=== PATIENT | male | born 1940 | race Caucasian/White ===

== ENCOUNTER → 2016-10-19 | Outpatient (CLI) | payer MEDICARE, OTHER ==
[~2016-10-19] VITALS: Ht 180.3 cm; Wt 108.9 kg
[~2016-10-19] MED LIST: ALLO300T OR; ASPI81TA85 PO; BISO5TAB5 PO; FINA5TAB2 PO; FISH1000 OR; LOSA100T37 PO; MAGN250T OR; NS 1,000 ML IV ONE; OMEP20TA7 OR; POTASSIUM OR; PRAV10TA PO; PROPOFOL 200 MG/20 ML VIAL As Ordered ONE; ROPI0.5T PO; TRIC145T19 OR; [UNRECOGNIZED DRUG - OTHER] PO
--- NOTE | 2016-10-19 15:02 | ROOR ---
Patient Name: Ian Alcantara Procedure Date: 10/19/2016 2:17 PM Date of : 1940 Age: 76 Room: [facility] Gender: Male Note Status: Finalized Procedure: Colonoscopy to Cecum + Cold Snare Polypectomy + Hemoclips x 10 Indications: High risk colon cancer surveillance: Personal history of colonic polyps, Last colonoscopy: 2005 Providers: Roger Araujo MD Referring MD: BARBER BRUMFIELD MD Requesting Provider: Medicines: Monitored Anesthesia Care Complications: No immediate complications. Procedure: Pre-Anesthesia Assessment: - The heart rate, respiratory rate, oxygen saturations, blood pressure, adequacy of pulmonary ventilation, and response to care were monitored throughout the procedure. The Colonoscope was introduced through the anus and advanced to the cecum, identified by appendiceal orifice and ileocecal valve. The colonoscopy was performed without difficulty. The patient tolerated the procedure well. The quality of the bowel preparation was excellent. Findings: The perianal and digital rectal examinations were normal. Non-bleeding internal hemorrhoids were found during retroflexion. The hemorrhoids were small and Grade I (internal hemorrhoids that do not prolapse). Scattered small-mouthed diverticula were found in the recto-sigmoid colon, sigmoid colon and descending colon. Multiple sessile polyps were found in the entire colon. The polyps were medium in size. These polyps were removed with a cold snare. Resection and retrieval were complete. To prevent bleeding after the polypectomy, four hemostatic clips were successfully placed (MR conditional). There was no bleeding at the end of the procedure. A large polyp was found in the mid ascending colon. The polyp was sessile. The polyp was removed with a cold snare. Resection and retrieval were complete. To prevent bleeding after the polypectomy, six hemostatic clips were successfully placed (MR conditional). There was no bleeding at the end of the procedure. The exam was otherwise without abnormality on direct and retroflexion views. Impression: - Non-bleeding internal hemorrhoids. - Diverticulosis in the recto-sigmoid colon, in the sigmoid colon and in the descending colon. - Multiple medium polyps in the entire colon, removed with a cold snare. Resected and retrieved. Clips (MR conditional) were placed. - One large polyp in the mid ascending colon, removed with a cold snare. Resected and retrieved. Clips (MR conditional) were placed. - The examination was otherwise normal on direct and retroflexion views. - The exam was otherwise normal to the cecum. Recommendation: - Patient has a contact number available for emergencies. The signs and symptoms of potential delayed complications were discussed with the patient. Return to normal activities tomorrow. Written discharge instructions were provided to the patient. - High fiber diet. - Discharge patient to home. - Continue present medications. - Await pathology results. - Telephone GI clinic for pathology results in 1 week. - Repeat colonoscopy in 1 year for surveillance based on pathology results. - Return to referring physician. - The findings and recommendations were discussed with the patient's family. Roger Araujo MD Roger Araujo MD 10/19/2016 3:02:25 PM This report has been signed electronically. Number of Addenda: 0 Note Initiated On: 10/19/2016 2:17 PM Estimated Blood Loss: Estimated blood loss: none.
[2016-10-19 15:51] VITALS: BP 139/71
== END | disposition home or self-care (01) ==
LOC: M OPP 12:41
PROVIDERS: ATTEND Internal Medicine Gastroenterology
DX: Z12.11 Encounter for screening for malignant neoplasm of colon (principal); D12.2 Benign neoplasm of ascending colon; K63.5 Polyp of colon; K64.0 First degree hemorrhoids; K57.30 Diverticulosis of large intestine without perforation or abscess without bleeding; Z86.010 Personal history of colon polyps; I10 Essential (primary) hypertension; E78.5 Hyperlipidemia, unspecified; M19.90 Unspecified osteoarthritis, unspecified site; M54.2 Cervicalgia; Z95.5 Presence of coronary angioplasty implant and graft; I25.2 Old myocardial infarction; Z87.442 Personal history of urinary calculi; Z79.82 Long term (current) use of aspirin; Z79.899 Other long term (current) drug therapy; Z80.3 Family history of malignant neoplasm of breast

== ENCOUNTER 2017-05-16 11:13 | Day surgery (SDC) | payer MEDICARE, OTHER ==
[~2017-05-16] VITALS: Ht 180.3 cm; Wt 110.0 kg
[~2017-05-16 11:13] MED LIST changes: -LOSA100T37 PO; +LOSA100T5 PO; -NS 1,000 ML IV ONE; -PRAV10TA PO; +PRAV10TA4 PO; -PROPOFOL 200 MG/20 ML VIAL As Ordered ONE
[2017-05-16] MEDS ORDERED: CRES10TA32 PO (12:11)
[2017-05-16] MEDS ORDERED: LIDOCAINE 1% SDV INJ 30 ML VIAL As Ordered ONE (12:48)
[2017-05-16] MEDS ORDERED: PROPOFOL 200 MG/20 ML VIAL As Ordered ONE ×2 (13:47→14:12)
[2017-05-16] MEDS ORDERED: MIDAZOLAM INJ 2 MG/2 ML VIAL (J2250) As Ordered ONE (13:47)
[2017-05-16] MEDS ORDERED: fentaNYL 100 MCG/2 ML INJECTION (J3010) As Ordered ONE (13:47)
[2017-05-16] MEDS ORDERED: PHENYLephrine HCL 500 MCG/5 ML (100MCG/ML) SYRINGE (J2370) As Ordered ONE (13:51)
--- NOTE | 2017-05-16 15:34 | REP ---
Chest one-view HISTORY: Pacemaker insertion Comparison: 09/15/2014 The lungs are clear. The heart is normal in size. The pulmonary vasculature is normal in appearance. The patient is status post pacemaker insertion surgical tito are present overlying the upper left hemithorax. Impression: The patient is status post pacemaker insertion. Signed by Shailesh Edwards MD 05/16/2017 03:25 P
[2017-05-16] MEDS ORDERED: fentaNYL 100 MCG/2 ML INJECTION (J3010) IV PRN (15:45)
[2017-05-16] MEDS ORDERED: ACETAMINOPHEN TAB 650MG DOSE (2X325MG) PO PRN (15:45)
[2017-05-16] MEDS ORDERED: LR 1,000 ML IV SCH (15:45)
[2017-05-16] MEDS ORDERED: ONDANSETRON 4MG/2ML VIAL (J2405) IV PRN (15:45)
[2017-05-16] MEDS: traMADol 50 MG TAB PO PRN (16:18)
--- NOTE | 2017-05-16 16:21 | RO ---
DATE OF PROCEDURE: 05/16/2017 PREOPERATIVE DIAGNOSES: 1. Intermittent high-grade AV block with syncope. 2. 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 3. Coronary artery disease ([place] vessel)/post percutaneous transluminal coronary angioplasty (PTCA). 4. Hypertensive heart disease (benign without heart failure). POSTOPERATIVE DIAGNOSES: 1. Intermittent high-grade AV block with syncope. 2. 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 3. Coronary artery disease ([place] vessel)/post percutaneous transluminal coronary angioplasty (PTCA). 4. Hypertensive heart disease (benign without heart failure). PROCEDURE: Implantation of permanent dual-chamber pacemaker. IMPLANTING COMPOTYPE OPERATOR: Dr. Gualberto Zacarias ANESTHESIOLOGIST: Dr. Randy Rey TYPE OF ANESTHESIA: Monitored local anesthesia. CLINICAL SUMMARY: This 77-year-old father of three grown children, retired resident of [place], [place] is followed by Dr. Cohen for ischemic and hypertensive heart disease. Has had a prior history of bradycardia and abnormal EKG. While hunting last week suffered a syncopal spell with subsequent documented EKG pauses exceeding 4 seconds. Had been on bisoprolol at that time which was discontinued. Had a followup Holter monitor that showed ongoing episodes of AV block with pauses of over 3 seconds. In light of this, he was referred to our pacer service for permanent pacemaker implant. Customarily feels fairly unrestricted. Denies any recent chest pain or shortness of breath or palpitations. Overweight, barrel-chested, elderly male lay comfortably. Heart rate (HR) 83 beats per minute and irregular, blood pressure 138/80, respiratory rate 16 per minute, body mass index (BMI) 34. Oxygen saturation on room air 99%. No pallor or cyanosis. Normal oral moisture. Trachea midline. Neck veins did not appear to be elevated. Increased anteroposterior chest diameter with good air entry over both lung villareal with no pulmonary adventitious sounds. Apical impulse not palpable. Heart sounds somewhat distant but variable with very soft systolic murmur that was also variable related to his arrhythmia. Normal carotid upstroke with variable volume related to his arrhythmia. Soft, overweight abdomen. Pedal pulses were palpable. No dependent edema. EKG May 15, 2017 showed underlying sinus rhythm with PAC. Left atrial conduction disturbance with first-degree AV block. Extreme left axis with left bundle branch block. Blood work April 25, 2017 showed electrolyte balance with creatinine 1.2, random glucose 118, hemoglobin was 15.6. DESCRIPTION OF PROCEDURE: In the fasting state following informed consent and having received Ancef 2 grams IV premedication, the patient was taken to the operating theater. Numerous skin electrodes were applied to facilitate continuous electrocardiographic monitoring. The left subclavian region was prepped and draped in the usual fashion. The skin was infiltrated with 1% Xylocaine, and the left axillary vein was catheterized using the Seldinger technique. A 5-cm linear incision was made several centimeters below and parallel to the left clavicle. Dissection was carried down to the level of the pectoralis fascia and a pocket was fashioned below the level of the incision line. Two bipolar screw-in active fixation steroid eluting pacing leads were then positioned to the right ventricular apex and high right atrial appendage under fluoroscopic and electrocardiographic control. The ventricular lead ([employer], model number [id number], serial number [id number] - MRI compatible) measurements were: Stimulation threshold 0.5, V/0.4 ms/impedance 1008 ohms. The R wave amplitude measured 20.6 mV. The atrial lead ([employer], model number [id number], serial number [id number] - MRI compatible) measurements were: Stimulation threshold 0.5 V/0.4 ms/impedance 522 ohms. The P wave amplitude measured 2.5 mV. These leads were secured in position with sleeves sutured at their insertion site. They were then connected to a dual-chamber pulse generator ([employer] - Assurity MRI compatible, model number [id number], serial number [id number]) and appropriate DDD pacing was documented. The generator was then placed in the pocket and secured in position with a suture through the upper right-hand corner of the epoxy header. The subcutaneous tissues were approximated using a running chromic suture and the skin was closed using tito. A dry dressing was applied and the patient was returned to the recovery room in good condition. No apparent complications. Estimated blood loss 10 mL. Our plan is to monitor him on telemetry overnight. His postoperative upright chest x-ray showed appropriate and good lead position with no pneumothorax. His EKG showed sinus rhythm with appropriate atrial sensing and tracking with ventricular paced QRS complexes having an extreme leftward axis and left bundle branch block pattern. We intend to re-interrogate his device tomorrow morning and anticipate his discharge prior to noon. His diet will continue with no added salt and low fat, low cholesterol. We have requested that he perform only light activities of daily living with his left arm until he has his tito removed in my office on May 25, 2017 at 12:30 p.m. We have also requested that he avoid getting his incision wet. He has been encouraged to contact us promptly for any abnormal erythema, swelling or discharge. His medications will resume bisoprolol 2.5 mg by mouth twice a day, losartan/HCTZ 100-25 one tablet daily, aspirin 81 mg daily, Crestor 10 mg nightly, potassium citrate 10 mEq daily, fenofibrate 134 mg daily, allopurinol 300 mg daily, Flomax 0.4 mg daily, and Proscar 5 mg by mouth daily with ropinirole 0.5 mg by mouth nightly. Following his wound check and staple removal May 25, 2017, he will continue his customary cardiology followup with Dr. Cohen. Copy To: Dr. Shiv Moseley
[2017-05-16 16:40] VITALS: BP 154/80
[2017-05-16 17:10] VITALS: BP 165/79
[2017-05-16 18:10] VITALS: BP 153/71
[2017-05-16 19:04] VITALS: BP 130/59
[2017-05-16] MEDS: ACETAMINOPHEN TAB 650MG DOSE (2X325MG) PO PRN (20:46)
[2017-05-16] MEDS: BISOPROLOL FUM 2.5 MG PER 1/2TAB PO SCH (20:47)
[2017-05-16] MEDS ORDERED: ROSUVASTATIN 10 MG TAB (CRESTOR) PO SCH (21:00)
[2017-05-16] MEDS ORDERED: rOPINIRole 0.25 MG TAB(REQUIP) PO SCH (21:00)
[2017-05-16] MEDS: CEFAZOLIN SOD 1 GM in APPROPRIATE DILUENT 1 EA IV SCH (21:34)
[2017-05-17] VITALS: BP 129/59
[2017-05-17 04:00] VITALS: BP 127/60
[2017-05-17] MEDS: traMADol 50 MG TAB PO PRN (05:27)
[2017-05-17] MEDS: CEFAZOLIN SOD 1 GM in APPROPRIATE DILUENT 1 EA IV SCH ×2 (06:14→13:50)
[2017-05-17 08:00] VITALS: BP 145/71
[2017-05-17] MEDS: ACETAMINOPHEN TAB 650MG DOSE (2X325MG) PO PRN (08:31)
[2017-05-17 08:33] VITALS: BP 145/71
[2017-05-17] MEDS: BISOPROLOL FUM 2.5 MG PER 1/2TAB PO SCH (08:33)
--- NOTE | 2017-05-17 08:50 | REP ---
Chest two views HISTORY: Pacemaker insertion Comparison: 05/16/2017 Linear density is present in the left lower lobe consistent with atelectasis. The right lung is clear. The heart is normal in size. The pulmonary vasculature is normal in appearance. Degenerative change is present in the thoracic spine. A cardiac pacemaker is present. IMPRESSION: Left lower lobe atelectasis. Signed by Shailesh Edwards MD 05/17/2017 08:42 A
[2017-05-17] MEDS ORDERED: POTASSIUM CHLORIDE 10 MEQ SR TABLET PO SCH (09:00)
[2017-05-17] MEDS ORDERED: ASPIRIN 81 MG CHEW TABLET PO SCH (09:00)
[2017-05-17] MEDS ORDERED: FINASTERIDE 5 MG TAB PO SCH (09:00)
[2017-05-17] MEDS ORDERED: ALLOPURINOL 300 MG TAB PO SCH (09:00)
[2017-05-17] MEDS ORDERED: hydroCHLOROthiazide 25 MG TAB PO SCH (09:00)
[2017-05-17] MEDS ORDERED: TAMSULOSIN 0.4 MG CAP PO SCH (09:00)
[2017-05-17] MEDS ORDERED: FENOFIBRATE 145 MG TAB (TRICOR) PO SCH (09:00)
[2017-05-17] MEDS ORDERED: LOSARTAN 50 MG TAB PO SCH (09:00)
--- NOTE | 2017-05-17 09:24 | ECGEPIP ---
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 First-degree AV block. Single pseudofusion beat with ventricular pacing artifact. Marked left axis - left anterior hemiblock. Rule out prior septal/IWMI. Incomplete LBBB. ST elevation in V2, resolved from 09/15/14. Electronically Signed On 05-17-2017 9:23:54 EST by Gualberto Zacarias
--- NOTE | 2017-05-17 09:31 | ECGEPIP ---
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 First-degree AV block. Extreme left axis - left anterior hemiblock; rule out prior septal/inferior SD. No significant change from 05/16/17. Electronically Signed On 05-17-2017 9:31:43 EST by Gualberto Zacarais
[2017-05-17 12:00] VITALS: BP 121/59
[2017-05-17] MEDS ORDERED: BISO5TAB5 PO (15:54)
[2017-05-17 16:00] VITALS: BP 131/60
--- NOTE | 2017-05-17 16:34 | IPN ---
DATE: 05/17/2017 CARDIOLOGY PROGRESS NOTE: SUBJECTIVE: The patient has had some minor incisional discomfort from his pacemaker implant yesterday but has been free of other chest discomfort, shortness of breath or dizziness. Has been up walking without problems. OBJECTIVE: Pleasant overweight slightly barrel-chested elderly male laying comfortably. Heart rate 60 beats per minute and regular, blood pressure 121/59 sitting with legs dependent, respiratory rate 16 per minute, O2 saturation 94% on room air. Afebrile. No pallor or icterus. Normal oral moisture. Trachea midline. Neck veins were not elevated. Increased anteroposterior chest diameter with normal chest expansion. His incision left subclavian region was healing well. His dressing was changed. Has plus/minus distal lower leg pitting. CHEST X-RAY: PA and left lateral study taken earlier today again shows his borderline cardiomegaly with slightly unfolded thoracic aorta but normal pulmonary vasculature. His pacemaker pulse generator is the left subclavian region and pacing leads are terminating in the high right atrial appendage and RV apex. Position was stable. No pneumothorax. No pleural effusion. 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 Intermittent atrially paced rhythm with frequent isolated PAC, occasional PVCs with his preferential spontaneous AV conduction mode activated. For the most part he has spontaneous QRS complexes but on occasion there are appropriately paced QRS complexes as well. No PSVT. EKG EARLIER TODAY: Shows underlying sinus rhythm with mostly spontaneous, AV conducted impulses with a first-degree AV block. Spontaneous complexes have an extreme leftward axis consistent with left anterior hemiblock. Has a poor precordial R-wave progression. Could not rule out prior septal or inferior infarctions. There are two appropriate paced QRS complexes. IMPRESSION/PLAN: 1. Syncope: The patient has remained free of further dizziness or faintness ambulating in the raines without problems. 2. AV block (unspecified) / dual-chamber pacemaker in situ: As mentioned above. Complete pacemaker interrogation shows excellent intracardiac electrograms and pacing thresholds with estimated battery longevity of 10-1/2 years. His ventricular auto capture function works well. His atrial auto capture function is not working at this time despite an excellent intracardiac signal with P-waves measuring 2.6 mV and pacing threshold of 0.5, V / 0.4 ms. His device is programmed to DDD with low rate 60 and upper rate 110. Spontaneous AV intervals of 200 ms with additional ventricular preferential program set with an extra 100 milliseconds. 3. Coronary artery disease ([place] vessel) / post [place] / post stenting procedure: Has remained free of symptomatic myocardial ischemia with his activity in hospital. We have resumed his bisoprolol beta darrell therapy now with his pacemaker is in place also continues on protective losartan and Crestor and aspirin. 4. Hypertensive heart disease (benign without heart failure): No symptoms or signs of congestion and his current blood pressure would be considered well-controlled on his combination therapy. This point the patient will be discharged home. He has been encouraged to follow a no added salt, low-fat, low-cholesterol diet. His activity will be as tolerated with the exception of light activity of daily living with his left arm and avoiding getting his incision wet until his tito removed in my office May 25, 2017 at 12:30 p.m. MEDICATON: Will continue bisoprolol 2.5 mg twice a day, losartan and / HCTZ 100 - 25 mg daily, Crestor 10 mg at night, Flomax 0.4 mg daily, Proscar 5 mg daily, aspirin 81 mg daily, allopurinol 300 mg daily, fenofibrate to 134 mg by mouth daily and potassium citrate 10 mEq 1 tablet three times a day 81 tablets three times a day. He will also be on Ropinirole 0.5 mg at bedtime. We have encouraged him to contact us promptly should he notice any abnormal erythema, swelling or discharge. Thank you.
== END 2017-05-17 16:53 | disposition home or self-care (01) ==
LOC: M SDC 11:13 → M PCU 16:34 → M SDC 05-17 16:53
PROVIDERS: ATTEND Internal Medicine Cardiovascular Disease
DX: I44.7 Left bundle-branch block, unspecified (principal); I44.1 Atrioventricular block, second degree; R55 Syncope and collapse; I25.10 Atherosclerotic heart disease of native coronary artery without angina pectoris; Z98.61 Coronary angioplasty status; E66.3 Overweight; Z79.899 Other long term (current) drug therapy
CPT/HCPCS: 33208; 71010; 71020; 76000; 93005; 96376; C1785; C1898; J0690; J2250; J2370; J3010

== ENCOUNTER → 2017-07-08 | Outpatient (CLI) | payer MEDICARE, OTHER ==
[2017-07-08 16:41] LABS: BASO # 0.1 10^3/uL (0.0-0.2); BASO % 0.7 % (0.0-1.0); EOS # 0.2 10^3/uL (0.0-0.50); EOS % 2.9 % (0.0-3.0); HEMATOCRIT 49.1 % (42.0-52.0); HEMOGLOBIN 16.3 g/dl (14.0-18.0); IMMATURE GRANULOCYTE % 0.3 % (0-0); LYMPH # 1.9 10^3/uL (1.5-4.5); LYMPH % 25.9 % (24.0-44.0); MEAN CORPUSCULAR HGB CONC 33.2 g/dl (32.0-36.5); MEAN CORPUSCULAR VOLUME 93.3 fl (80.0-96.0); MONO # 0.9 10^3/uL (0.0-0.8); MONO % 11.9 % (0.0-5.0); NEUTROPHILS # 4.2 10^3/uL (1.8-7.7); NEUTROPHILS % 58.3 % (36.0-66.0); PLATELET COUNT, AUTOMATED 185 10^3/uL (150-450); RED BLOOD COUNT 5.26 10^6/uL (4.30-6.10); RED CELL DISTRIBUTION WIDTH 13.2 % (11.5-14.5); WHITE BLOOD COUNT 7.2 10^3/uL (4.0-10.0)
[2017-07-09 11:15] LABS: CONTROL LINE MONO RF C INT CTR LINE PRESENT; MONO REFLEX EBV COMP NEGATIVE (NEGATIVE)
[2017-07-12 00:06] LABS: EBV VIRAL CAPSID AG IgM <36.0 U/mL (0.0-35.9)
[2017-07-12 00:06] LABS: EBV AB TO NUCLEAR ANTIGEN >600.0 U/mL (0.0-17.9); EBV VIRAL CAPSID AG IgG >600.0 U/mL (0.0-17.9)
== END ==
LOC: M ADAMS 10:39
DX: J20.9 Acute bronchitis, unspecified (principal); Z95.0 Presence of cardiac pacemaker
CPT/HCPCS: 86665

== ENCOUNTER → 2017-08-03 | Outpatient (CLI) | payer MEDICARE, OTHER | LOC: M SMT 11:04 | DX: N20.0 Calculus of kidney (principal) | CPT/HCPCS: 74018; G0463 ==

== ENCOUNTER → 2017-08-09 | Outpatient (REF) | payer MEDICARE, OTHER ==
[2017-08-09 14:32] LABS: APPEARANCE, URINE CLEAR (CLEAR); BACTERIA, URINE AUTO NEGATIVE (NEGATIVE); BILIRUBIN, URINE AUTO NEGATIVE (NEGATIVE); BLOOD, URINE BLOOD NEGATIVE (NEGATIVE); COLOR, URINE YELLOW (YELLOW); GLUCOSE, URINE (UA) AUTO NEGATIVE (NEGATIVE); KETONE, URINE AUTO NEGATIVE (NEGATIVE); LEUKOCYTE ESTERASE, URINE AUTO NEGATIVE (NEGATIVE); MUCUS, URINE SMALL (NEGATIVE); NITRITE, URINE AUTO NEGATIVE (NEGATIVE); PROTEIN, URINE AUTO NEGATIVE (NEGATIVE); RBC, URINE AUTO 1 /HPF (0-3); SPECIFIC GRAVITY URINE AUTO 1.018 (1.002-1.035); SQUAMOUS EPITHELIAL CELL UR AU 0 /HPF (0-6); UROBILINOGEN, URINE AUTO 0.2 mg/dL (0.0-2.0); WBC, URINE AUTO 1 /HPF (0-3)
== END ==
LOC: M SMT 13:29
DX: N39.0 Urinary tract infection, site not specified (principal)
CPT/HCPCS: 81001

== ENCOUNTER → 2017-11-13 | Outpatient (CLI) | payer MEDICARE, OTHER | LOC: M ADAMS 13:33 | DX: M51.36 Other intervertebral disc degeneration, lumbar region (principal) | CPT/HCPCS: 72110 ==

== ENCOUNTER → 2017-11-14 | Outpatient (CLI) | payer MEDICARE, OTHER | LOC: M ADAMS 15:27 | DX: S93.402D Sprain of unspecified ligament of left ankle, subsequent encounter (principal); R60.0 Localized edema | CPT/HCPCS: 73610 ==

== ENCOUNTER → 2018-02-01 | Outpatient (CLI) | payer MEDICARE, OTHER | LOC: M SMT 10:04 | DX: N20.0 Calculus of kidney (principal) | CPT/HCPCS: 74018; G0463 ==

== ENCOUNTER 2018-02-25 13:28 | Emergency (ER) | payer MEDICARE, OTHER ==
[2018-02-25 14:00] LABS: HEMATOCRIT 45.5 % (42.0-52.0); HEMOGLOBIN 15.5 g/dl (13.5-17.5); MEAN CORPUSCULAR VOLUME 95.8 fl (80.0-96.0); RED BLOOD COUNT 4.75 10^6/uL (4.30-6.10); WHITE BLOOD COUNT 9.5 10^3/uL (4.0-10.0)
[2018-02-25 14:01] LABS: BASO % 0.4 % (0.0-1.0); EOS # 0.1 10^3/uL (0.0-0.50); EOS % 1.5 % (0.0-3.0); IMMATURE GRANULOCYTE % 0.3 % (0-3.0); LYMPH # 2.4 10^3/uL (1.5-4.5); LYMPH % 25.4 % (24.0-44.0); MEAN CORPUSCULAR HEMOGLOBIN 32.6 pg (27.0-33.0); MEAN CORPUSCULAR HGB CONC 34.1 g/dl (32.0-36.5); MONO # 1.2 10^3/uL (0.0-0.8); MONO % 12.8 % (0.0-5.0); NEUTROPHILS # 5.6 10^3/uL (1.8-7.7); NEUTROPHILS % 59.6 % (36.0-66.0); PLATELET COUNT, AUTOMATED 151 10^3/uL (150-450); RED CELL DISTRIBUTION WIDTH 13.5 % (11.5-14.5)
[2018-02-25] MEDS: GI COCKTAIL 50ML BTL(HYOSCYAMINE/MAALOX/LIDOCAINE VISCOUS)(1:3:1) PO (14:01)
[2018-02-25 14:15] LABS: INR 0.93; PROTHROMBIN TIME 12.6 SECONDS (12.1-14.4)
[2018-02-25 14:16] LABS: PARTIAL THROMBOPLASTIN TIME 29.4 SECONDS (25.4-37.6)
[2018-02-25 14:27] LABS: ALBUMIN 3.7 GM/DL (3.2-5.2); ALBUMIN/GLOBULIN RATIO 0.93 (1.00-1.93); ALKALINE PHOSPHATASE 48 U/L (45-117); ALT/SGPT 22 U/L (12-78); ANION GAP 6 MEQ/L (8-16); AST/SGOT 22 U/L (7-37); BILIRUBIN,DIRECT 0.2 MG/DL (0.0-0.2); BILIRUBIN,TOTAL 1.2 MG/DL (0.2-1.0); BLOOD UREA NITROGEN 26 MG/DL (7-18); CALCIUM LEVEL 9.5 MG/DL (8.8-10.2); CARBON DIOXIDE LEVEL 29 MEQ/L (21-32); CHLORIDE LEVEL 100 MEQ/L (98-107); CPK CREATINE PHOSPHOKINASE 207 U/L (39-308); FREE T4 0.77 NG/DL (0.76-1.46); GLOMERULAR FILTRATION RATE 56.7 (>42); GLUCOSE, FASTING 147 MG/DL (70-100); LIPASE 137 U/L (73-393); MB/CK RELATIVE INDEX 1.01 (< OR =4); NT-PRO BNP 571 PG/ML (<450); SODIUM LEVEL 135 MEQ/L (136-145); TOTAL PROTEIN 7.7 GM/DL (6.4-8.2); TROPONIN I < 0.02 NG/ML (< 0.10)
[2018-02-25] MEDS: KETOROLAC 30 MG/ML VIAL (J1885) IV (15:15)
[2018-02-25] MEDS: FUROSEMIDE 20 MG/2 ML VIAL (J1940) IV (15:16)
== END 2018-02-25 15:55 | disposition home or self-care (01) ==
LOC: M ED 13:28
DX: I50.9 Heart failure, unspecified (principal); M79.1 Myalgia; Z95.0 Presence of cardiac pacemaker; R94.31 Abnormal electrocardiogram [ECG] [EKG]; I51.9 Heart disease, unspecified; I10 Essential (primary) hypertension; Z95.5 Presence of coronary angioplasty implant and graft; Z95.1 Presence of aortocoronary bypass graft; I71.2 Thoracic aortic aneurysm, without rupture; Z79.82 Long term (current) use of aspirin; Z79.899 Other long term (current) drug therapy
CPT/HCPCS: J1940

== ENCOUNTER → 2019-02-08 | Outpatient (CLI) | payer MEDICARE, OTHER ==
[~2019-02-08] MED LIST changes: -BISO5TAB5 PO; +BISO5TAB9 PO; +CRES10TA PO; +FENO130C PO; +FLOM0.4C39 PO; +IBUP-1022 PO
--- NOTE | 2019-02-08 09:38 | REP ---
Right abdomen two views: Comparison is a 2017. There are no comparison CTs. There are four calcifications projected over the right kidney, similar to the prior study. No left renal calculi are identified. This is unchanged. The bowel gas pattern is normal. There are large bridging osteophytes at multiple levels of the lumbar spine, unchanged. Impression: Right renal calculi as described, unchanged. Electronically Signed by Gerber Reagan MD 02/08/2019 09:30 A
[2019-02-08 13:25] LABS: APPEARANCE, URINE CLEAR (CLEAR); BACTERIA, URINE AUTO NEGATIVE (NEGATIVE); BILIRUBIN, URINE AUTO NEGATIVE (NEGATIVE); BLOOD, URINE BLOOD NEGATIVE (NEGATIVE); COLOR, URINE YELLOW (YELLOW); GLUCOSE, URINE (UA) AUTO NEGATIVE (NEGATIVE); KETONE, URINE AUTO NEGATIVE (NEGATIVE); LEUKOCYTE ESTERASE, URINE AUTO NEGATIVE (NEGATIVE); MUCUS, URINE SMALL (NEGATIVE); NITRITE, URINE AUTO NEGATIVE (NEGATIVE); PROTEIN, URINE AUTO NEGATIVE (NEGATIVE); RBC, URINE AUTO 0 /HPF (0-3); SQUAMOUS EPITHELIAL CELL UR AU 0 /HPF (0-6); UROBILINOGEN, URINE AUTO 0.2 mg/dL (0.0-2.0); WBC, URINE AUTO 0 /HPF (0-3)
== END ==
LOC: M SMT 08:47
PROVIDERS: ATTEND Urology
DX: N39.0 Urinary tract infection, site not specified (principal); N20.0 Calculus of kidney; M25.78 Osteophyte, vertebrae
CPT/HCPCS: 74018; 81001; 87086; G0463

== ENCOUNTER → 2019-12-30 | Outpatient (REF) | payer MEDICARE, OTHER ==
[~2019-12-30] MED LIST changes: -ASPI81TA85 PO; +ASPI81TA86 PO; +BISO5TAB14 PO; -BISO5TAB9 PO; -FENO130C PO; +FENO1CAP18 PO; -ROPI0.5T PO; +ROPI0.5T3 PO
[2019-12-30 13:51] LABS: APPEARANCE, URINE CLEAR (CLEAR); BACTERIA, URINE AUTO NEGATIVE (NEGATIVE); BILIRUBIN, URINE AUTO NEGATIVE (NEGATIVE); BLOOD, URINE BLOOD 1+ (NEGATIVE); COLOR, URINE YELLOW (YELLOW); GLUCOSE, URINE (UA) AUTO 1+ mg/dL (NEGATIVE); KETONE, URINE AUTO NEGATIVE (NEGATIVE); LEUKOCYTE ESTERASE, URINE AUTO NEGATIVE (NEGATIVE); NITRITE, URINE AUTO NEGATIVE (NEGATIVE); PROTEIN, URINE AUTO NEGATIVE (NEGATIVE); RBC, URINE AUTO 2 /HPF (0-3); SPECIFIC GRAVITY URINE AUTO 1.019 (1.002-1.035); SQUAMOUS EPITHELIAL CELL UR AU 1 /HPF (0-6); UROBILINOGEN, URINE AUTO 0.2 mg/dL (0.0-2.0); WBC, URINE AUTO 0 /HPF (0-3)
== END ==
LOC: M LABSMT 10:23 → M SFHCADAM 10:23
PROVIDERS: ATTEND Nurse Practitioner Women's Health
DX: R30.0 Dysuria (principal)

== ENCOUNTER → 2020-01-22 | Outpatient (REF) | payer MEDICARE, OTHER ==
[2020-03-08 06:38] LABS: BLOOD UREA NITROGEN 28 MG/DL (7-18); CALCIUM LEVEL 9.4 MG/DL (8.8-10.2); CARBON DIOXIDE LEVEL 34 MEQ/L (21-32); CHLORIDE LEVEL 102 MEQ/L (98-107); CREATININE FOR GFR 1.21 MG/DL (0.70-1.30); GLOMERULAR FILTRATION RATE > 60.0 (>35); GLUCOSE, FASTING 130 MG/DL (70-100); POTASSIUM SERUM 3.8 MEQ/L (3.5-5.1); SODIUM LEVEL 141 MEQ/L (136-145)
== END ==
LOC: M LABDRWAD 10:05
PROVIDERS: ATTEND Urology
DX: R31.0 Gross hematuria (principal)

== ENCOUNTER → 2020-05-04 | Outpatient (REF) | payer MEDICARE, OTHER ==
[2020-05-05 18:07] LABS: Lyme Disease IgG/IgM Antibodie <0.91 ISR (0.00-0.90); Lyme Disease IgM Ab Quantitati <0.80 index (0.00-0.79)
== END ==
LOC: M LABDRWAD 12:13 → M LAB REF 12:13
PROVIDERS: ATTEND Internal Medicine
DX: A69.20 Lyme disease, unspecified (principal)

== ENCOUNTER → 2021-04-12 | Outpatient (CLI) | payer MEDICARE, OTHER ==
--- NOTE | 2021-04-12 12:12 | REP ---
INDICATION: RIGHT SHOULDER INJURY. COMPARISON: None. TECHNIQUE: Three views of the right shoulder were performed. 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 There is evidence of a Hill-Sachs deformity. The glenohumeral relationship is within normal limits. There is no evidence of an acute fracture, dislocation, or subluxation. IMPRESSION: Chronic changes as described above. <Electronically signed by Reginaldo Llanos > 04/12/21 [id number]
== END ==
LOC: M RAD 11:49
PROVIDERS: ATTEND Physician Assistant Medical
DX: M25.511 Pain in right shoulder (principal); M19.011 Primary osteoarthritis, right shoulder; M77.8 Other enthesopathies, not elsewhere classified

== ENCOUNTER → 2021-10-14 | Outpatient (CLI) | payer MEDICARE, OTHER ==
[~2021-10-14] MED LIST changes: +ALBU8.5H INH; +ALLO300T2 PO; +BREO1INH INH; +DULO1CAP5 PO; +ECOT81TA5 PO; +FLUTISP NARES; +GABA-282 PO; +VITMTA PO
== END ==
LOC: M LABSMTC 09:07
PROVIDERS: ATTEND Anesthesiology
DX: Z01.812 Encounter for preprocedural laboratory examination (principal); Z20.822 Contact with and (suspected) exposure to COVID-19

== ENCOUNTER → 2021-11-11 | Outpatient (CLI) | payer MEDICARE, OTHER | LOC: M EKG 12:11 | PROVIDERS: ATTEND Anesthesiology | DX: Z01.818 Encounter for other preprocedural examination (principal); I25.2 Old myocardial infarction ==

== ENCOUNTER 2021-11-16 07:35 | Day surgery (SDC) | payer MEDICARE, OTHER ==
[~2021-11-16] VITALS: Ht 177.8 cm; Wt 104.3 kg
[2021-11-16] MEDS ORDERED: dexameTHASONE 4 MG/ML 1ML VIAL (J1100 PER 1MG) IV ONE (08:00)
[2021-11-16] MEDS ORDERED: MIDAZOLAM INJ 2MG/2ML VIAL (J2250 PER 1MG) As Ordered ONE (08:49)
[2021-11-16] MEDS ORDERED: fentaNYL 250 MCG/5 ML INJECTION As Ordered ONE (08:49)
[2021-11-16] MEDS ORDERED: ROCURONIUM BROMIDE 50 MG/5 ML VIAL As Ordered ONE (08:50)
[2021-11-16] MEDS ORDERED: dexameTHASONE 4 MG/ML 1ML VIAL (J1100 PER 1MG) As Ordered ONE (08:50)
[2021-11-16] MEDS ORDERED: SUCCINYLCHOLINE 100 MG/5 ML SYRINGE (J0330) As Ordered ONE (08:50)
[2021-11-16] MEDS ORDERED: LIDOCAINE 2% 100MG/5ML SDV (FOR ANES.) As Ordered ONE (08:50)
[2021-11-16] MEDS ORDERED: propofoL 200 MG/20 ML VIAL As Ordered ONE (08:50)
[2021-11-16] MEDS ORDERED: ONDANSETRON 4MG/2ML VIAL As Ordered ONE (08:50)
[2021-11-16] MEDS ORDERED: NEOSPORIN TOP OINT 15GM As Ordered ONE (09:40)
[2021-11-16] MEDS ORDERED: LIDOCAINE W/EPINEPHRINE 1% 20ML VIAL As Ordered ONE (09:40)
[2021-11-16] MEDS ORDERED: ACETAMINOPHEN 1000MG 100ML IV BTL (OFIRMEV) (J0131 PER 10MG) As Ordered ONE (10:02)
[2021-11-16] MEDS ORDERED: PHENYLephrine 500MCG 5ML (100MCG/ML) SYRINGE As Ordered ONE (10:18)
[2021-11-16] MEDS ORDERED: LR 1,000 ML IV SCH ×3 (10:55→11:40)
[2021-11-16] MEDS ORDERED: ONDANSETRON 4MG/2ML VIAL IV PRN (11:10)
[2021-11-16] MEDS ORDERED: fentaNYL 100 MCG/2 ML INJECTION IV PRN (11:10)
[2021-11-16] MEDS ORDERED: oxyCODONE 5MG TAB PO PRN (11:10)
[2021-11-16 12:05] VITALS: BP 155/74
== END 2021-11-16 12:17 | disposition home or self-care (01) ==
LOC: M SDC 07:35
PROVIDERS: ATTEND Otolaryngology
DX: D17.0 Benign lipomatous neoplasm of skin and subcutaneous tissue of head, face and neck (principal); I25.2 Old myocardial infarction; I10 Essential (primary) hypertension; Z95.0 Presence of cardiac pacemaker; N40.0 Benign prostatic hyperplasia without lower urinary tract symptoms; E78.5 Hyperlipidemia, unspecified; M10.9 Gout, unspecified; F41.9 Anxiety disorder, unspecified; F32.A Depression, unspecified; J45.909 Unspecified asthma, uncomplicated; Z79.899 Other long term (current) drug therapy; Z79.51 Long term (current) use of inhaled steroids
CPT/HCPCS: 11422; 87426; 88307; J0131; J0330; J1100; J2250; J2370; J2405; J3010

== ENCOUNTER 2021-12-18 07:34 | Inpatient (IN) | payer MEDICARE, OTHER ==
[2021-12-18] VITALS (17 sets, daily range): BP systolic 141–190; BP diastolic 70–91
[~2021-12-18] VITALS: Ht 180.3 cm; Wt 109.9 kg
[2021-12-18] MEDS ORDERED: FAMOTIDINE 20MG/2ML VIAL IVP ONE (07:45)
[2021-12-18] MEDS ORDERED: NS 1,000 ML IV SCH (07:45)
[2021-12-18] MEDS ORDERED: diphenhydrAMINE 50MG/ML VIAL (J1200) IV ONE (07:45)
[2021-12-18] MEDS ORDERED: methylPREDNISolone 125MG 2ML VIAL IV ONE (07:45)
[2021-12-18] MEDS ORDERED: IPRATROPIUM 0.5MG/ALBUTEROL 2.5MG INH SOL UD 3ML (DUONEB) NEB ONE (07:55)
[2021-12-18 08:28] LABS: BASO # 0.1 10^3/uL (0.0-0.2); BASO % 0.8 % (0.0-1.0); EOS # 0.3 10^3/uL (0.0-0.5); EOS % 3.6 % (0.0-3.0); HEMATOCRIT 51.8 % (42.0-52.0); HEMOGLOBIN 17.2 g/dl (13.5-17.5); LYMPH # 2.9 10^3/uL (1.5-5.0); LYMPH % 39.1 % (24.0-44.0); MEAN CORPUSCULAR HEMOGLOBIN 31.3 pg (27.0-33.0); MEAN CORPUSCULAR HGB CONC 33.2 g/dl (32.0-36.5); MEAN CORPUSCULAR VOLUME 94.2 fl (80.0-96.0); MONO # 0.7 10^3/uL (0.0-0.8); MONO % 9.8 % (2.0-8.0); NEUTROPHILS # 3.4 10^3/uL (1.5-8.5); NEUTROPHILS % 46.4 % (36.0-66.0); PLATELET COUNT, AUTOMATED 132 10^3/uL (150-450); WHITE BLOOD COUNT 7.4 10^3/uL (4.0-10.0)
[2021-12-18 08:56] LABS: ALBUMIN 3.9 GM/DL (3.2-5.2); ALT/SGPT 33 U/L (12-78); BILIRUBIN,DIRECT 0.3 MG/DL (0.0-0.2); BLOOD UREA NITROGEN 26 MG/DL (7-18); CALCIUM LEVEL 9.4 MG/DL (8.8-10.2); CARBON DIOXIDE LEVEL 30 MEQ/L (21-32); CHLORIDE LEVEL 103 MEQ/L (98-107); CREATININE FOR GFR 1.21 MG/DL (0.70-1.30); GLOMERULAR FILTRATION RATE > 60.0 (>35); GLUCOSE, FASTING 146 MG/DL (70-100); POTASSIUM SERUM 3.6 MEQ/L (3.5-5.1); SODIUM LEVEL 141 MEQ/L (136-145); TOTAL PROTEIN 7.6 GM/DL (6.4-8.2)
[2021-12-18] MEDS ORDERED: TRANEXAMIC ACID INJection 1,000 MG in NS 100 ML IV ONE (09:00)
[2021-12-18 09:07] LABS: RSV AMPLIFICATION NEGATIVE (NEGATIVE)
[2021-12-18] MEDS ORDERED: hydrALAZINE 20MG/ML 1ML VIAL (J0360 PER 20MG) IV STA (09:43)
[2021-12-18] MEDS ORDERED: DEXTROSE 50% 50 ML SYRINGE IV PRN (10:20)
[2021-12-18] MEDS ORDERED: GLUCAGON INJ 1MG VIAL SC PRN (10:20)
[2021-12-18] MEDS ORDERED: GLUCOSE 4GM CHEW TABLET PO PRN (10:20)
[2021-12-18] MEDS ORDERED: FLOM0.4C39 PO (10:25)
[2021-12-18] MEDS ORDERED: BISO5TAB14 PO (10:25)
[2021-12-18] MEDS ORDERED: IBUP1TAB6 PO (10:25)
[2021-12-18] MEDS ORDERED: HOME MED LIST COMPLETE! XX SCH (10:30)
[2021-12-18] MEDS ORDERED: FLUTICASONE PROP 0.05% NASAL SPRAY 16 GM (FLONASE) NARES PRN (12:05)
[2021-12-18] MEDS ORDERED: IBUPROFEN 600MG TAB PO PRN (12:05)
[2021-12-18] MEDS: ENOXAPARIN 40MG/0.4ML SYRINGE (J1650 PER 10MG) SC SCH (12:50)
[2021-12-18] MEDS: PANTOPRAZOLE 40MG VIAL IV SCH (12:50)
[2021-12-18] MEDS: amLODIPine 5 MG TAB PO SCH (12:51)
[2021-12-18] MEDS: INSULIN LISPRO (NovoLOG) PER UNIT SC SCH ×3 (12:52→23:49)
[2021-12-18] MEDS ORDERED: hydrALAZINE 20MG/ML 1ML VIAL (J0360 PER 20MG) IV PRN (14:00)
[2021-12-18] MEDS ORDERED: hydrALAZINE 20MG/ML 1ML VIAL (J0360 PER 20MG) IV SCH (14:00)
[2021-12-18] MEDS: methylPREDNISolone 40MG 1ML VIAL IV SCH ×2 (15:23→23:44)
[2021-12-18] MEDS ORDERED: ACETAMINOPHEN TAB 650MG DOSE (2X325MG) PO PRN (18:55)
[2021-12-18] MEDS: ASPIRIN 81MG ENTERIC TABLET PO SCH (20:35)
[2021-12-18] MEDS: TAMSULOSIN 0.4 MG CAP PO SCH (20:35)
[2021-12-18] MEDS: DULoxetine 30MG CAPSULE (CYMBALTA) PO SCH (20:35)
[2021-12-18] MEDS: ROSUVASTATIN 10 MG TAB (CRESTOR) PO SCH (20:36)
[2021-12-18] MEDS: FINASTERIDE 5MG TAB PO SCH (20:36)
[2021-12-18] MEDS: FLUTICASONE PROP 0.05% NASAL SPRAY 16 GM (FLONASE) NARES SCH (20:36)
[2021-12-18] MEDS ORDERED: HEPARIN SOD (PORCINE) 5000UNITS/ML 1ML VIAL/SYRINGE SQ SCH (22:00)
[2021-12-19] VITALS (12 sets, daily range): BP systolic 131–166; BP diastolic 65–88
[2021-12-19 02:36] LABS: BLOOD UREA NITROGEN 18 MG/DL (7-18); CALCIUM LEVEL 9.3 MG/DL (8.8-10.2); CARBON DIOXIDE LEVEL 30 MEQ/L (21-32); CHLORIDE LEVEL 101 MEQ/L (98-107); CREATININE FOR GFR 1.05 MG/DL (0.70-1.30); GLOMERULAR FILTRATION RATE > 60.0 (>35); GLUCOSE, FASTING 147 MG/DL (70-100); POTASSIUM SERUM 3.5 MEQ/L (3.5-5.1); SODIUM LEVEL 136 MEQ/L (136-145)
[2021-12-19 05:17] LABS: BASO % 0.2 % (0.0-1.0); HEMATOCRIT 45.3 % (42.0-52.0); HEMOGLOBIN 15.8 g/dl (13.5-17.5); LYMPH # 1.3 10^3/uL (1.5-5.0); LYMPH % 10.1 % (24.0-44.0); MEAN CORPUSCULAR HEMOGLOBIN 31.9 pg (27.0-33.0); MEAN CORPUSCULAR HGB CONC 34.9 g/dl (32.0-36.5); MEAN CORPUSCULAR VOLUME 91.5 fl (80.0-96.0); MONO # 0.3 10^3/uL (0.0-0.8); MONO % 2.2 % (2.0-8.0); NEUTROPHILS # 11.1 10^3/uL (1.5-8.5); NEUTROPHILS % 87.1 % (36.0-66.0); PLATELET COUNT, AUTOMATED 137 10^3/uL (150-450); RED BLOOD COUNT 4.95 10^6/uL (4.30-6.10); WHITE BLOOD COUNT 12.7 10^3/uL (4.0-10.0)
[2021-12-19 05:35] LABS: BLOOD UREA NITROGEN 20 MG/DL (7-18); CREATININE FOR GFR 1.05 MG/DL (0.70-1.30); GLOMERULAR FILTRATION RATE > 60.0 (>35); GLUCOSE, FASTING 163 MG/DL (70-100)
[2021-12-19 05:36] LABS: CALCIUM LEVEL 9.2 MG/DL (8.8-10.2); CARBON DIOXIDE LEVEL 30 MEQ/L (21-32); CHLORIDE LEVEL 103 MEQ/L (98-107); MAGNESIUM LEVEL 1.8 MG/DL (1.8-2.4); PHOSPHORUS LEVEL 2.7 MG/DL (2.5-4.9); POTASSIUM SERUM 3.6 MEQ/L (3.5-5.1); SODIUM LEVEL 139 MEQ/L (136-145)
[2021-12-19] MEDS: INSULIN LISPRO (NovoLOG) PER UNIT SC SCH ×3 (06:13→17:06)
[2021-12-19] MEDS: ENOXAPARIN 40MG/0.4ML SYRINGE (J1650 PER 10MG) SC SCH (08:33)
[2021-12-19] MEDS: methylPREDNISolone 40MG 1ML VIAL IV SCH (08:33)
[2021-12-19] MEDS: PANTOPRAZOLE 40MG VIAL IV SCH (08:33)
[2021-12-19] MEDS: amLODIPine 5 MG TAB PO SCH (08:34)
[2021-12-19] MEDS: allopurinoL 300 MG TAB PO SCH (08:34)
[2021-12-19] MEDS: FLUTICASONE PROP 0.05% NASAL SPRAY 16 GM (FLONASE) NARES SCH ×2 (10:12→20:42)
[2021-12-19] MEDS ORDERED: NEOSPORIN OINT 0.9 GM PKT TOP ONE (14:00)
[2021-12-19] MEDS: ASPIRIN 81MG ENTERIC TABLET PO SCH (20:43)
[2021-12-19] MEDS: DULoxetine 30MG CAPSULE (CYMBALTA) PO SCH (20:43)
[2021-12-19] MEDS: TAMSULOSIN 0.4 MG CAP PO SCH (20:43)
[2021-12-19] MEDS: FINASTERIDE 5MG TAB PO SCH (20:43)
[2021-12-19] MEDS: ROSUVASTATIN 10 MG TAB (CRESTOR) PO SCH (20:43)
[2021-12-19] MEDS ORDERED: INSULIN LISPRO (NovoLOG) PER UNIT SC SCH (21:00)
[2021-12-20 04:00] VITALS: BP 168/77
[2021-12-20 05:11] LABS: BASO % 0.1 % (0.0-1.0); HEMATOCRIT 46.1 % (42.0-52.0); HEMOGLOBIN 15.9 g/dl (13.5-17.5); LYMPH # 1.6 10^3/uL (1.5-5.0); LYMPH % 9.7 % (24.0-44.0); MEAN CORPUSCULAR HEMOGLOBIN 32.1 pg (27.0-33.0); MEAN CORPUSCULAR HGB CONC 34.5 g/dl (32.0-36.5); MEAN CORPUSCULAR VOLUME 92.9 fl (80.0-96.0); MONO # 1.2 10^3/uL (0.0-0.8); MONO % 7.2 % (2.0-8.0); NEUTROPHILS # 13.9 10^3/uL (1.5-8.5); NEUTROPHILS % 82.7 % (36.0-66.0); PLATELET COUNT, AUTOMATED 159 10^3/uL (150-450); RED BLOOD COUNT 4.96 10^6/uL (4.30-6.10); WHITE BLOOD COUNT 16.8 10^3/uL (4.0-10.0)
[2021-12-20 05:27] LABS: BLOOD UREA NITROGEN 26 MG/DL (7-18); CALCIUM LEVEL 9.2 MG/DL (8.8-10.2); CARBON DIOXIDE LEVEL 32 MEQ/L (21-32); CHLORIDE LEVEL 105 MEQ/L (98-107); CREATININE FOR GFR 1.14 MG/DL (0.70-1.30); GLOMERULAR FILTRATION RATE > 60.0 (>35); GLUCOSE, FASTING 147 MG/DL (70-100); MAGNESIUM LEVEL 2.1 MG/DL (1.8-2.4); PHOSPHORUS LEVEL 2.8 MG/DL (2.5-4.9); POTASSIUM SERUM 4.2 MEQ/L (3.5-5.1); SODIUM LEVEL 140 MEQ/L (136-145)
[2021-12-20] MEDS ORDERED: INSULIN LISPRO (NovoLOG) PER UNIT SC SCH (07:30)
[2021-12-20 08:00] VITALS: BP 170/66
[2021-12-20] MEDS: allopurinoL 300 MG TAB PO SCH (08:06)
[2021-12-20] MEDS: amLODIPine 5 MG TAB PO SCH (08:06)
[2021-12-20] MEDS: ENOXAPARIN 40MG/0.4ML SYRINGE (J1650 PER 10MG) SC SCH (08:06)
[2021-12-20] MEDS: FLUTICASONE PROP 0.05% NASAL SPRAY 16 GM (FLONASE) NARES SCH (08:07)
[2021-12-20] MEDS ORDERED: AMLO1TAB24 PO (09:42)
== END 2021-12-20 10:55 | disposition home or self-care (01) | DRG 916 ==
LOC: M ED 07:34 → M ED INP 09:48 → M ICU 12:10
PROVIDERS: ADMIT Internal Medicine Pulmonary Disease; ATTEND Family Medicine
PROC: 02HV33Z Insertion of Infusion Device into Superior Vena Cava, Percutaneous Approach (ICD-10-PCS; principal; 2021-12-18)
PROC: 0CJY8ZZ Inspection of Mouth and Throat, Via Natural or Artificial Opening Endoscopic (ICD-10-PCS; 2021-12-18)
DX: T78.3XXA Angioneurotic edema, initial encounter (principal); I10 Essential (primary) hypertension; F32.A Depression, unspecified; M10.9 Gout, unspecified; I25.10 Atherosclerotic heart disease of native coronary artery without angina pectoris; Z95.0 Presence of cardiac pacemaker; T44.5X5A Adverse effect of predominantly beta-adrenoreceptor agonists, initial encounter; F41.9 Anxiety disorder, unspecified

== ENCOUNTER 2022-02-06 18:24 | Emergency (ER) | payer MEDICARE, OTHER ==
[~2022-02-06] VITALS: Ht 180.3 cm; Wt 111.8 kg
[~2022-02-06 18:24] MED LIST changes: +AMLO1TAB24 PO; +IBUP1TAB6 PO
[2022-02-06] MEDS ORDERED: LIDOCAINE 2% MDV 20ML VIAL SC ONE (19:50)
[2022-02-06] MEDS ORDERED: ASPIRIN 81 MG CHEW TABLET PO ONE (20:25)
[2022-02-06] MEDS ORDERED: bisoproloL fumarate 5 MG TAB PO ONE (20:25)
[2022-02-06] MEDS ORDERED: NEOSPORIN OINT 0.9 GM PKT TOP ONE (20:25)
[2022-02-06] MEDS ORDERED: DULoxetine 30MG CAPSULE (CYMBALTA) PO ONE (20:25)
[2022-02-06] MEDS ORDERED: TAMSULOSIN 0.4 MG CAP PO ONE (20:25)
[2022-02-06] MEDS ORDERED: FINASTERIDE 5MG TAB PO SCH (21:00)
[2022-02-06] MEDS ORDERED: ROSUVASTATIN 10 MG TAB (CRESTOR) PO SCH (21:00)
[2022-02-06 21:08] VITALS: BP 179/79
[2022-02-06] MEDS ORDERED: BOOSTRIX/ADACEL VACCINE (DIPHTH/PERTUSS/ACELL/TETANUS) 0.5ML SYR IM.IMMUN ONE (21:20)
[2022-02-06] MEDS ORDERED: CEPH500C PO (21:57)
[2022-02-06] MEDS ORDERED: CEPHALEXIN 500 MG CAP PO ONE (22:00)
== END 2022-02-06 22:26 | disposition home or self-care (01) ==
LOC: M ED 18:24
DX: S01.112A Laceration without foreign body of left eyelid and periocular area, initial encounter (principal); S00.83XA Contusion of other part of head, initial encounter; S00.33XA Contusion of nose, initial encounter; W10.2XXA Fall (on)(from) incline, initial encounter; Y92.099 Unspecified place in other non-institutional residence as the place of occurrence of the external cause; M25.462 Effusion, left knee; I10 Essential (primary) hypertension; N40.0 Benign prostatic hyperplasia without lower urinary tract symptoms; Z79.82 Long term (current) use of aspirin; Z79.899 Other long term (current) drug therapy; Z88.8 Allergy status to other drugs, medicaments and biological substances

== ENCOUNTER 2022-06-23 10:42 | Inpatient (IN) | payer MEDICARE, OTHER ==
[2022-06-23] VITALS (10 sets, daily range): BP systolic 149–177; BP diastolic 68–88
[~2022-06-23] VITALS: Ht 180.3 cm; Wt 108.6 kg
[~2022-06-23 10:42] MED LIST changes: +CEPH500C PO
[2022-06-23] MEDS ORDERED: C1 ESTERASE INHIBITOR IV ONE (11:25)
[2022-06-23] MEDS ORDERED: FAMOTIDINE 20MG/2ML VIAL IVP ONE (11:25)
[2022-06-23] MEDS ORDERED: C1 ESTERASE INHIBITOR (HUMAN) 2,000 UNIT in IV 1 EA IV ONE (11:40)
[2022-06-23 12:15] LABS: BILIRUBIN,DIRECT 0.2 MG/DL (<0.4)
[2022-06-23 12:16] LABS: ALBUMIN 3.6 G/DL (3.2-5.2); ALKALINE PHOSPHATASE 87 U/L (46-116); ALT/SGPT 23 U/L (7.0-40); AST/SGOT 24 U/L (<34); BILIRUBIN,TOTAL 0.7 MG/DL (0.3-1.2); BLOOD UREA NITROGEN 20 MG/DL (9-23); CALCIUM LEVEL 9.2 MG/DL (8.3-10.6); CARBON DIOXIDE LEVEL 32 MMOL/L (20-31); CHLORIDE LEVEL 104 MMOL/L (98-107); CREATININE FOR GFR 0.86 MG/DL (0.70-1.30); GLOMERULAR FILTRATION RATE > 60.0 (>35); GLUCOSE, FASTING 111 MG/DL (74-106); SODIUM LEVEL 141 MMOL/L (136-145); TOTAL PROTEIN 6.8 G/DL (5.7-8.2)
[2022-06-23 12:19] LABS: C REACTIVE PROTEIN QUANTITATIV < 0.40 MG/DL (<1.0)
[2022-06-23 12:20] LABS: COMPLEMENT C4 31.8 MG/DL (12-36)
[2022-06-23 12:21] LABS: RSV AMPLIFICATION NEGATIVE (NEGATIVE)
[2022-06-23] MEDS ORDERED: AMLO1TAB24 PO (13:10)
[2022-06-23] MEDS ORDERED: HOME MED LIST COMPLETE! XX SCH (13:20)
[2022-06-23] MEDS: HEPARIN SOD (PORCINE) 5000UNITS/ML 1ML VIAL/SYRINGE SC SCH ×2 (14:45→21:42)
[2022-06-23] MEDS ORDERED: D5W/0.9% SODIUM CHLORIDE 1,000 ML IV SCH (14:45)
[2022-06-23] MEDS: methylPREDNISolone 40MG 1ML VIAL IV SCH ×2 (14:45→20:11)
[2022-06-23] MEDS ORDERED: hydrALAZINE 20MG/ML 1ML VIAL IV PRN (15:25)
[2022-06-23] MEDS: diphenhydrAMINE 50MG/ML VIAL IV SCH ×2 (16:14→23:22)
[2022-06-23] MEDS: FAMOTIDINE 20MG/2ML VIAL IV SCH (20:11)
[2022-06-24] VITALS (12 sets, daily range): BP systolic 140–175; BP diastolic 63–84
[2022-06-24] MEDS: methylPREDNISolone 40MG 1ML VIAL IV SCH ×2 (01:51→08:22)
[2022-06-24 04:49] LABS: HEMATOCRIT 48.1 % (42.0-52.0); MEAN CORPUSCULAR HEMOGLOBIN 30.4 pg (27.0-33.0); MEAN CORPUSCULAR HGB CONC 33.3 g/dl (32.0-36.5); MEAN CORPUSCULAR VOLUME 91.4 fl (80.0-96.0); PLATELET COUNT, AUTOMATED 150 10^3/uL (150-450); RED BLOOD COUNT 5.26 10^6/uL (4.30-6.10); WHITE BLOOD COUNT 8.6 10^3/uL (4.0-10.0)
[2022-06-24 05:14] LABS: BLOOD UREA NITROGEN 13 MG/DL (9-23); CALCIUM LEVEL 9.4 MG/DL (8.3-10.6); CARBON DIOXIDE LEVEL 26 MMOL/L (20-31); CHLORIDE LEVEL 102 MMOL/L (98-107); CREATININE FOR GFR 0.65 MG/DL (0.70-1.30); GLOMERULAR FILTRATION RATE > 60.0 (>35); GLUCOSE, FASTING 184 MG/DL (74-106); POTASSIUM SERUM 3.6 MMOL/L (3.5-5.1); SODIUM LEVEL 137 MMOL/L (136-145)
[2022-06-24] MEDS: HEPARIN SOD (PORCINE) 5000UNITS/ML 1ML VIAL/SYRINGE SC SCH ×3 (05:52→22:08)
[2022-06-24] MEDS ORDERED: ACETAMINOPHEN TAB 650MG DOSE (2X325MG) PO PRN (07:50)
[2022-06-24] MEDS: diphenhydrAMINE 50MG/ML VIAL IV SCH ×3 (08:22→23:45)
[2022-06-24] MEDS: FAMOTIDINE 20MG/2ML VIAL IV SCH ×2 (08:23→20:08)
[2022-06-24] MEDS ORDERED: bisoproloL fumarate 5 MG TAB PO ONE (12:45)
[2022-06-24] MEDS: amLODIPine 5 MG TAB PO SCH (13:32)
[2022-06-24] MEDS: allopurinoL 300 MG TAB PO SCH (13:32)
[2022-06-24] MEDS ORDERED: FUROSEMIDE 40MG/4ML VIAL IV ONE (16:55)
[2022-06-24] MEDS ORDERED: methylPREDNISolone 40MG 1ML VIAL IV SCH (20:00)
[2022-06-24] MEDS ORDERED: ROSUVASTATIN 10 MG TAB (CRESTOR) PO SCH (21:00)
[2022-06-24] MEDS ORDERED: TAMSULOSIN 0.4 MG CAP PO SCH (21:00)
[2022-06-24] MEDS ORDERED: FINASTERIDE 5MG TAB PO SCH (21:00)
[2022-06-24] MEDS ORDERED: bisoproloL fumarate 5 MG TAB PO SCH (21:00)
[2022-06-25] VITALS (11 sets, daily range): BP systolic 138–163; BP diastolic 62–77; O2SAT 92–95
[2022-06-25] MEDS: HEPARIN SOD (PORCINE) 5000UNITS/ML 1ML VIAL/SYRINGE SC SCH (06:47)
[2022-06-25] MEDS: allopurinoL 300 MG TAB PO SCH (08:21)
[2022-06-25] MEDS: amLODIPine 5 MG TAB PO SCH (08:25)
[2022-06-25] MEDS ORDERED: FAMOTIDINE 20 MG TAB PO SCH (09:00)
[2022-06-25] MEDS ORDERED: predniSONE 20 MG TAB PO SCH (09:00)
[2022-06-25] MEDS ORDERED: FAMO20TA PO (10:23)
[2022-06-25] MEDS ORDERED: HYDR-3490 PO (10:23)
[2022-06-25] MEDS ORDERED: PRED20TA PO (10:23)
== END 2022-06-25 11:43 | disposition home or self-care (01) | DRG 916 ==
LOC: M ED 10:42 → M ED INP 12:40 → ENRESERV 12:49 → M ICU 14:00 → M PCU 06-24 23:30
PROVIDERS: ADMIT Internal Medicine; ATTEND Internal Medicine
DX: T78.3XXA Angioneurotic edema, initial encounter (principal); I10 Essential (primary) hypertension; I25.10 Atherosclerotic heart disease of native coronary artery without angina pectoris; Z95.0 Presence of cardiac pacemaker; M10.9 Gout, unspecified; F41.9 Anxiety disorder, unspecified; E78.5 Hyperlipidemia, unspecified; N40.0 Benign prostatic hyperplasia without lower urinary tract symptoms; F32.A Depression, unspecified; E66.9 Obesity, unspecified; Z96.651 Presence of right artificial knee joint; Z90.49 Acquired absence of other specified parts of digestive tract; Z79.82 Long term (current) use of aspirin; Z79.899 Other long term (current) drug therapy; Z20.822 Contact with and (suspected) exposure to COVID-19; Z68.33 Body mass index [BMI] 33.0-33.9, adult

== ENCOUNTER → 2023-02-14 | Outpatient (REF) | payer MEDICARE, OTHER ==
[~2023-02-14] MED LIST changes: +FAMO20TA PO; +FLUT50SP17 NARES; -FLUTISP NARES; +HYDR-3490 PO; +PRED20TA PO; -ROPI0.5T3 PO; +ROPI0.5T33 PO
[2023-02-14 13:02] LABS: HEMATOCRIT 43.6 % (42.0-52.0); HEMOGLOBIN 13.8 g/dl (13.5-17.5); MEAN CORPUSCULAR HEMOGLOBIN 30.7 pg (27.0-33.0); MEAN CORPUSCULAR HGB CONC 31.7 g/dl (32.0-36.5); MEAN CORPUSCULAR VOLUME 97.1 fl (80.0-96.0); PLATELET COUNT, AUTOMATED 184 10^3/uL (150-450); RED BLOOD COUNT 4.49 10^6/uL (4.30-6.10); WHITE BLOOD COUNT 5.9 10^3/uL (4.0-10.0)
[2023-02-14 13:22] LABS: ALBUMIN 2.6 G/DL (3.2-5.2); ALKALINE PHOSPHATASE 94 U/L (46-116); ALT/SGPT 59 U/L (7.0-40); AST/SGOT 37 U/L (<34); BILIRUBIN,TOTAL 0.3 MG/DL (0.3-1.2); BLOOD UREA NITROGEN 17 MG/DL (9-23); CALCIUM LEVEL 8.7 MG/DL (8.3-10.6); CARBON DIOXIDE LEVEL 30 MMOL/L (20-31); CHLORIDE LEVEL 103 MMOL/L (98-107); GLOMERULAR FILTRATION RATE > 60.0 (>35); GLUCOSE, FASTING 175 MG/DL (74-106); POTASSIUM SERUM 3.3 MMOL/L (3.5-5.1); SODIUM LEVEL 141 MMOL/L (136-145); TOTAL PROTEIN 6.4 G/DL (5.7-8.2)
[2023-02-14 13:23] LABS: C REACTIVE PROTEIN QUANTITATIV < 0.40 MG/DL (<1.0)
== END ==
LOC: M SHH 12:32
PROVIDERS: ATTEND Internal Medicine
DX: R78.81 Bacteremia (principal)

== ENCOUNTER → 2023-02-20 | Outpatient (REF) | payer MEDICARE, OTHER ==
[2023-02-20 18:42] LABS: HEMATOCRIT 42.3 % (42.0-52.0); HEMOGLOBIN 13.7 g/dl (13.5-17.5); MEAN CORPUSCULAR HEMOGLOBIN 31.1 pg (27.0-33.0); MEAN CORPUSCULAR HGB CONC 32.4 g/dl (32.0-36.5); MEAN CORPUSCULAR VOLUME 95.9 fl (80.0-96.0); PLATELET COUNT, AUTOMATED 142 10^3/uL (150-450); RED BLOOD COUNT 4.41 10^6/uL (4.30-6.10)
[2023-02-20 19:05] LABS: ALBUMIN 2.7 G/DL (3.2-5.2); ALKALINE PHOSPHATASE 97 U/L (46-116); ALT/SGPT 26 U/L (7.0-40); AST/SGOT 41 U/L (<34); BILIRUBIN,TOTAL 0.6 MG/DL (0.3-1.2); BLOOD UREA NITROGEN 17 MG/DL (9-23); CARBON DIOXIDE LEVEL 31 MMOL/L (20-31); CHLORIDE LEVEL 99 MMOL/L (98-107); CREATININE FOR GFR 0.61 MG/DL (0.70-1.30); GLOMERULAR FILTRATION RATE > 60.0 (>35); GLUCOSE, FASTING 130 MG/DL (74-106); POTASSIUM SERUM 3.6 MMOL/L (3.5-5.1); SODIUM LEVEL 139 MMOL/L (136-145); TOTAL PROTEIN 6.6 G/DL (5.7-8.2)
== END ==
LOC: M SHH 17:26
PROVIDERS: ATTEND Internal Medicine
DX: R78.81 Bacteremia (principal)

== ENCOUNTER 2023-03-16 11:31 | Inpatient (IN) | payer MEDICARE, OTHER ==
[~2023-03-16] VITALS: Ht 180.3 cm; Wt 101.2 kg
[2023-03-16] MEDS ORDERED: POTA10CA60 PO (12:12)
[2023-03-16] MEDS ORDERED: GABA600T4 PO (12:12)
[2023-03-16] MEDS ORDERED: MORPHINE 4 MG/ML 1ML VIAL IV ONE (12:40)
[2023-03-16 13:03] LABS: BASO # 0.1 10^3/uL (0.0-0.2); BASO % 0.8 % (0.0-1.0); EOS # 0.4 10^3/uL (0.0-0.5); EOS % 4.9 % (0.0-3.0); HEMATOCRIT 44.2 % (42.0-52.0); LYMPH # 2.7 10^3/uL (1.5-5.0); MEAN CORPUSCULAR HGB CONC 33.9 g/dl (32.0-36.5); MEAN CORPUSCULAR VOLUME 94.2 fl (80.0-96.0); MONO # 0.8 10^3/uL (0.0-0.8); MONO % 9.6 % (2.0-8.0); NEUTROPHILS # 3.9 10^3/uL (1.5-8.5); NEUTROPHILS % 49.4 % (36.0-66.0); PLATELET COUNT, AUTOMATED 150 10^3/uL (150-450); RED BLOOD COUNT 4.69 10^6/uL (4.30-6.10); WHITE BLOOD COUNT 7.8 10^3/uL (4.0-10.0)
[2023-03-16] MEDS ORDERED: ISOVUE-370 76% 100ML VIAL As Ordered ONE (13:07)
[2023-03-16 13:09] LABS: INR 1.15; PROTHROMBIN TIME 14.4 SECONDS (12.5-14.5)
[2023-03-16 13:10] LABS: PARTIAL THROMBOPLASTIN TIME 28.3 SECONDS (24.8-34.2)
[2023-03-16 13:37] LABS: CPK CREATINE PHOSPHOKINASE 43 U/L (46-171)
[2023-03-16 13:38] LABS: ALBUMIN 3.1 G/DL (3.2-5.2); ALKALINE PHOSPHATASE 87 U/L (46-116); ALT/SGPT 34 U/L (7.0-40); AST/SGOT 30 U/L (<34); BILIRUBIN,DIRECT 0.3 MG/DL (<0.4); BILIRUBIN,TOTAL 0.8 MG/DL (0.3-1.2); BLOOD UREA NITROGEN 19 MG/DL (9-23); CALCIUM LEVEL 9.5 MG/DL (8.3-10.6); CARBON DIOXIDE LEVEL 32 MMOL/L (20-31); CHLORIDE LEVEL 101 MMOL/L (98-107); CREATININE FOR GFR 0.66 MG/DL (0.70-1.30); GLOMERULAR FILTRATION RATE > 60.0 (>35); GLUCOSE, FASTING 124 MG/DL (74-106); MB/CK RELATIVE INDEX 20.93 (< OR =4); POTASSIUM SERUM 3.5 MMOL/L (3.5-5.1); SODIUM LEVEL 139 MMOL/L (136-145); TOTAL PROTEIN 6.7 G/DL (5.7-8.2)
[2023-03-16 13:40] LABS: FREE T4 0.86 NG/DL (0.89-1.76); THYROID STIMULATING HORMONE 2.071 uIU/ML (0.55-4.78)
[2023-03-16 13:46] LABS: RSV AMPLIFICATION NEGATIVE (NEGATIVE)
[2023-03-16] MEDS ORDERED: MOM 30ML SUSPENSION UDC PO PRN (17:30)
[2023-03-16] MEDS ORDERED: ACETAMINOPHEN TAB 650MG DOSE (2X325MG) PO PRN (17:30)
[2023-03-16] MEDS ORDERED: HYDR12.55 PO (17:41)
[2023-03-16] MEDS ORDERED: ROSU10TA6 PO (17:41)
[2023-03-16] MEDS ORDERED: DULO60CA35 PO (17:42)
[2023-03-16] MEDS ORDERED: HOME MED LIST COMPLETE! XX SCH (17:45)
[2023-03-16] MEDS ORDERED: KETOROLAC 30 MG/ML 1ML VIAL IV PRN (18:10)
[2023-03-16] MEDS ORDERED: MORPHINE 4 MG/ML 1ML VIAL IV PRN (18:10)
[2023-03-16] MEDS: DOCUSATE SODIUM 100MG CAPSULE PO SCH (21:00)
[2023-03-16] MEDS: oxyCODONE 5MG TAB PO PRN (21:30)
[2023-03-16] MEDS: DICLOFENAC EPOLAMINE 1.3% PATCH TOP SCH (22:07)
[2023-03-16 22:27] VITALS: BP 151/70; TEMP 98.6; O2SAT 94
[2023-03-16] MEDS: ACETAMINOPHEN 500 MG TAB PO SCH (23:23)
[2023-03-17] MEDS: ACETAMINOPHEN 500 MG TAB PO SCH ×4 (05:16→23:59)
[2023-03-17 06:07] VITALS: BP 151/72; TEMP 98.2; O2SAT 94
[2023-03-17 06:26] LABS: HEMATOCRIT 41.9 % (42.0-52.0); HEMOGLOBIN 13.9 g/dl (13.5-17.5); MEAN CORPUSCULAR HEMOGLOBIN 31.5 pg (27.0-33.0); MEAN CORPUSCULAR HGB CONC 33.2 g/dl (32.0-36.5); PLATELET COUNT, AUTOMATED 122 10^3/uL (150-450); RED BLOOD COUNT 4.41 10^6/uL (4.30-6.10); WHITE BLOOD COUNT 6.5 10^3/uL (4.0-10.0)
[2023-03-17 06:40] LABS: INR 1.13; PROTHROMBIN TIME 14.2 SECONDS (12.5-14.5)
[2023-03-17 06:51] LABS: HEMOGLOBIN A1c 5.3 % (4.0-6.0)
[2023-03-17 06:52] LABS: BLOOD UREA NITROGEN 16 MG/DL (9-23); CALCIUM LEVEL 8.8 MG/DL (8.3-10.6); CARBON DIOXIDE LEVEL 35 MMOL/L (20-31); CHLORIDE LEVEL 103 MMOL/L (98-107); GLOMERULAR FILTRATION RATE > 60.0 (>35); GLUCOSE, FASTING 105 MG/DL (74-106); POTASSIUM SERUM 3.7 MMOL/L (3.5-5.1); SODIUM LEVEL 140 MMOL/L (136-145)
[2023-03-17] MEDS: LIDOCAINE 5% (LIDODERM) PATCH TD SCH (09:03)
[2023-03-17] MEDS: DOCUSATE SODIUM 100MG CAPSULE PO SCH ×2 (09:03→20:10)
[2023-03-17] MEDS: DICLOFENAC EPOLAMINE 1.3% PATCH TOP SCH ×2 (09:03→20:09)
[2023-03-17] MEDS: oxyCODONE 5MG TAB PO PRN (09:07)
[2023-03-17 14:00] VITALS: BP 136/63; TEMP 98.6; O2SAT 93
[2023-03-17] MEDS: RIVAROXABAN 10MG TAB (XARELTO) PO SCH (17:45)
[2023-03-17] MEDS: TAMSULOSIN 0.4 MG CAP PO SCH (20:09)
[2023-03-17] MEDS: DULoxetine 30MG CAPSULE (CYMBALTA) PO SCH (20:09)
[2023-03-17] MEDS: ASPIRIN 81MG ENTERIC TABLET PO SCH (20:09)
[2023-03-17] MEDS: GABAPENTIN 300 MG CAP PO SCH (20:09)
[2023-03-17] MEDS: FINASTERIDE 5MG TAB PO SCH (20:09)
[2023-03-17] MEDS: ROSUVASTATIN 10 MG TAB (CRESTOR) PO SCH (20:09)
[2023-03-17] MEDS: bisoproloL fumarate 5 MG TAB PO SCH (20:10)
[2023-03-17 22:00] VITALS: BP 145/71; TEMP 98.2; O2SAT 92
[2023-03-18] MEDS: ACETAMINOPHEN 500 MG TAB PO SCH (05:45)
[2023-03-18 06:11] VITALS: BP 159/70; TEMP 98.2; O2SAT 92
[2023-03-18 06:29] LABS: HEMATOCRIT 42.1 % (42.0-52.0); HEMOGLOBIN 13.9 g/dl (13.5-17.5); MEAN CORPUSCULAR HEMOGLOBIN 31.2 pg (27.0-33.0); MEAN CORPUSCULAR VOLUME 94.6 fl (80.0-96.0); PLATELET COUNT, AUTOMATED 139 10^3/uL (150-450); RED BLOOD COUNT 4.45 10^6/uL (4.30-6.10)
[2023-03-18 06:57] LABS: BLOOD UREA NITROGEN 18 MG/DL (9-23); CARBON DIOXIDE LEVEL 32 MMOL/L (20-31); CHLORIDE LEVEL 102 MMOL/L (98-107); GLOMERULAR FILTRATION RATE > 60.0 (>35); GLUCOSE, FASTING 106 MG/DL (74-106); POTASSIUM SERUM 3.7 MMOL/L (3.5-5.1); SODIUM LEVEL 139 MMOL/L (136-145)
[2023-03-18] MEDS ORDERED: ACETAMINOPHEN 500 MG TAB PO PRN (07:45)
[2023-03-18] MEDS: DOCUSATE SODIUM 100MG CAPSULE PO SCH ×2 (09:24→20:36)
[2023-03-18] MEDS: hydroCHLOROthiazide 12.5 MG CAPSULE PO SCH (09:24)
[2023-03-18] MEDS: allopurinoL 300 MG TAB PO SCH (09:25)
[2023-03-18] MEDS: POTASSIUM CHLORIDE 10MEQ SR TABLET PO SCH (09:25)
[2023-03-18] MEDS: GABAPENTIN 300 MG CAP PO SCH ×3 (09:25→20:35)
[2023-03-18] MEDS: DICLOFENAC EPOLAMINE 1.3% PATCH TOP SCH ×2 (09:25→20:34)
[2023-03-18] MEDS: LIDOCAINE 5% (LIDODERM) PATCH TD SCH (09:25)
[2023-03-18] MEDS: IBUPROFEN 600MG TAB PO PRN (14:39)
[2023-03-18] MEDS: RIVAROXABAN 10MG TAB (XARELTO) PO SCH (18:10)
[2023-03-18] MEDS: TAMSULOSIN 0.4 MG CAP PO SCH (20:35)
[2023-03-18] MEDS: DULoxetine 30MG CAPSULE (CYMBALTA) PO SCH (20:35)
[2023-03-18] MEDS: ROSUVASTATIN 10 MG TAB (CRESTOR) PO SCH (20:36)
[2023-03-18] MEDS: FINASTERIDE 5MG TAB PO SCH (20:36)
[2023-03-18] MEDS: ASPIRIN 81MG ENTERIC TABLET PO SCH (20:36)
[2023-03-18] MEDS: bisoproloL fumarate 5 MG TAB PO SCH ×2 (20:39→20:40)
[2023-03-19 05:35] VITALS: BP 158/94; TEMP 97.9; O2SAT 97
[2023-03-19] MEDS: GABAPENTIN 300 MG CAP PO SCH ×3 (08:27→20:53)
[2023-03-19] MEDS: LIDOCAINE 5% (LIDODERM) PATCH TD SCH (08:27)
[2023-03-19] MEDS: POTASSIUM CHLORIDE 10MEQ SR TABLET PO SCH (08:27)
[2023-03-19] MEDS: DOCUSATE SODIUM 100MG CAPSULE PO SCH ×2 (08:27→20:53)
[2023-03-19] MEDS: allopurinoL 300 MG TAB PO SCH (08:27)
[2023-03-19] MEDS: DICLOFENAC EPOLAMINE 1.3% PATCH TOP SCH ×2 (08:27→20:54)
[2023-03-19] MEDS: hydroCHLOROthiazide 12.5 MG CAPSULE PO SCH (08:27)
[2023-03-19] MEDS: RIVAROXABAN 10MG TAB (XARELTO) PO SCH (17:37)
[2023-03-19] MEDS: ASPIRIN 81MG ENTERIC TABLET PO SCH (20:52)
[2023-03-19] MEDS: TAMSULOSIN 0.4 MG CAP PO SCH (20:52)
[2023-03-19] MEDS: bisoproloL fumarate 5 MG TAB PO SCH (20:53)
[2023-03-19] MEDS: DULoxetine 30MG CAPSULE (CYMBALTA) PO SCH (20:53)
[2023-03-19] MEDS: FINASTERIDE 5MG TAB PO SCH (20:53)
[2023-03-19] MEDS: ROSUVASTATIN 10 MG TAB (CRESTOR) PO SCH (20:53)
[2023-03-20 04:58] VITALS: BP 159/88; TEMP 98.1; O2SAT 93
[2023-03-20] MEDS: POTASSIUM CHLORIDE 10MEQ SR TABLET PO SCH (10:20)
[2023-03-20] MEDS: allopurinoL 300 MG TAB PO SCH (10:20)
[2023-03-20] MEDS: GABAPENTIN 300 MG CAP PO SCH ×3 (10:20→20:23)
[2023-03-20] MEDS: DOCUSATE SODIUM 100MG CAPSULE PO SCH ×2 (10:20→20:23)
[2023-03-20] MEDS: hydroCHLOROthiazide 12.5 MG CAPSULE PO SCH (10:21)
[2023-03-20] MEDS: DICLOFENAC EPOLAMINE 1.3% PATCH TOP SCH ×2 (10:21→20:22)
[2023-03-20] MEDS: LIDOCAINE 5% (LIDODERM) PATCH TD SCH (10:22)
[2023-03-20 14:00] VITALS: BP 109/67; TEMP 97.7; O2SAT 95
[2023-03-20] MEDS: IBUPROFEN 600MG TAB PO PRN (15:09)
[2023-03-20] MEDS: oxyCODONE 5MG TAB PO PRN (15:58)
[2023-03-20] MEDS: RIVAROXABAN 10MG TAB (XARELTO) PO SCH (18:37)
[2023-03-20 20:00] VITALS: BP 127/71; TEMP 99; O2SAT 91
[2023-03-20] MEDS ORDERED: QUEtiapine FUMARATE 12.5 MG HALF-TAB PO ONE (20:00)
[2023-03-20 20:04] VITALS: TEMP 100.6
[2023-03-20] MEDS: ASPIRIN 81MG ENTERIC TABLET PO SCH (20:23)
[2023-03-20] MEDS: FINASTERIDE 5MG TAB PO SCH (20:23)
[2023-03-20] MEDS: DULoxetine 30MG CAPSULE (CYMBALTA) PO SCH (20:23)
[2023-03-20] MEDS: TAMSULOSIN 0.4 MG CAP PO SCH (20:23)
[2023-03-20 20:24] VITALS: BP 127/71
[2023-03-20] MEDS: ROSUVASTATIN 10 MG TAB (CRESTOR) PO SCH (20:24)
[2023-03-20] MEDS: bisoproloL fumarate 5 MG TAB PO SCH (20:24)
[2023-03-20 20:40] LABS: BASO # 0.1 10^3/uL (0.0-0.2); BASO % 0.6 % (0.0-1.0); EOS # 0.3 10^3/uL (0.0-0.5); EOS % 3.4 % (0.0-3.0); HEMATOCRIT 41.6 % (42.0-52.0); HEMOGLOBIN 14.2 g/dl (13.5-17.5); LYMPH # 2.3 10^3/uL (1.5-5.0); LYMPH % 28.4 % (24.0-44.0); MEAN CORPUSCULAR HEMOGLOBIN 32.1 pg (27.0-33.0); MEAN CORPUSCULAR HGB CONC 34.1 g/dl (32.0-36.5); MEAN CORPUSCULAR VOLUME 93.9 fl (80.0-96.0); NEUTROPHILS # 4.3 10^3/uL (1.5-8.5); NEUTROPHILS % 54.5 % (36.0-66.0); PLATELET COUNT, AUTOMATED 170 10^3/uL (150-450); RED BLOOD COUNT 4.43 10^6/uL (4.30-6.10); WHITE BLOOD COUNT 7.9 10^3/uL (4.0-10.0)
[2023-03-20 20:54] LABS: APPEARANCE, URINE CLOUDY (CLEAR); BACTERIA, URINE AUTO NEGATIVE (NEGATIVE); BILIRUBIN, URINE AUTO NEGATIVE (NEGATIVE); BLOOD, URINE BLOOD 3+ (NEGATIVE); COLOR, URINE AMBER (YELLOW); GLUCOSE, URINE (UA) AUTO NEGATIVE (NEGATIVE); KETONE, URINE AUTO NEGATIVE (NEGATIVE); LEUKOCYTE ESTERASE, URINE AUTO 1+ (NEGATIVE); MUCUS, URINE SMALL (NEGATIVE); NITRITE, URINE AUTO NEGATIVE (NEGATIVE); PROTEIN, URINE AUTO 1+ mg/dL (NEGATIVE); RBC, URINE AUTO TNTC /HPF (0-3); SPECIFIC GRAVITY URINE AUTO 1.018 (1.002-1.035); SQUAMOUS EPITHELIAL CELL UR AU 0 /HPF (0-6); UROBILINOGEN, URINE AUTO 0.2 mg/dL (0.0-2.0); WBC, URINE AUTO 15 /HPF (0-3)
[2023-03-20 21:23] LABS: BLOOD UREA NITROGEN 18 MG/DL (9-23); CALCIUM LEVEL 9.1 MG/DL (8.3-10.6); CARBON DIOXIDE LEVEL 30 MMOL/L (20-31); CHLORIDE LEVEL 103 MMOL/L (98-107); CREATININE FOR GFR 0.84 MG/DL (0.70-1.30); GLOMERULAR FILTRATION RATE > 60.0 (>35); GLUCOSE, FASTING 108 MG/DL (74-106); MAGNESIUM LEVEL 1.9 MG/DL (1.8-2.4); POTASSIUM SERUM 3.8 MMOL/L (3.5-5.1); SODIUM LEVEL 139 MMOL/L (136-145)
[2023-03-20 22:11] VITALS: TEMP 97.5
[2023-03-21 05:34] VITALS: BP 151/73; TEMP 97.3; O2SAT 97
[2023-03-21] MEDS: hydroCHLOROthiazide 12.5 MG CAPSULE PO SCH (09:13)
[2023-03-21] MEDS: DOCUSATE SODIUM 100MG CAPSULE PO SCH (09:13)
[2023-03-21] MEDS: POTASSIUM CHLORIDE 10MEQ SR TABLET PO SCH (09:13)
[2023-03-21] MEDS: GABAPENTIN 300 MG CAP PO SCH (09:13)
[2023-03-21] MEDS: allopurinoL 300 MG TAB PO SCH (09:13)
[2023-03-21] MEDS: LIDOCAINE 5% (LIDODERM) PATCH TD SCH (09:14)
[2023-03-21] MEDS: DICLOFENAC EPOLAMINE 1.3% PATCH TOP SCH (09:14)
== END 2023-03-21 13:58 | DRG 552 ==
LOC: M ED 11:31 → M ED INP 17:29 → M MSPAV 21:44
PROVIDERS: ADMIT Student in an Organized Health Care Education/Training Program; ATTEND Internal Medicine
DX: M48.062 Spinal stenosis, lumbar region with neurogenic claudication (principal); I25.10 Atherosclerotic heart disease of native coronary artery without angina pectoris; M10.9 Gout, unspecified; I12.9 Hypertensive chronic kidney disease with stage 1 through stage 4 chronic kidney disease, or unspecified chronic kidney disease; R26.89 Other abnormalities of gait and mobility; F41.9 Anxiety disorder, unspecified; F32.A Depression, unspecified; M19.90 Unspecified osteoarthritis, unspecified site; E11.22 Type 2 diabetes mellitus with diabetic chronic kidney disease; G89.29 Other chronic pain; N20.0 Calculus of kidney; E78.5 Hyperlipidemia, unspecified; I71.40 Abdominal aortic aneurysm, without rupture, unspecified; N18.9 Chronic kidney disease, unspecified; Z96.651 Presence of right artificial knee joint; Z90.49 Acquired absence of other specified parts of digestive tract; Z95.0 Presence of cardiac pacemaker; L89.152 Pressure ulcer of sacral region, stage 2; N40.0 Benign prostatic hyperplasia without lower urinary tract symptoms; Z79.82 Long term (current) use of aspirin; Z79.899 Other long term (current) drug therapy; Z20.822 Contact with and (suspected) exposure to COVID-19; Z88.8 Allergy status to other drugs, medicaments and biological substances

== ENCOUNTER → 2023-04-05 | Outpatient (REF) | payer MEDICARE, OTHER ==
[~2023-04-05] MED LIST changes: +DULO60CA35 PO; +GABA600T4 PO; +HYDR12.55 PO; +POTA10CA60 PO; +ROSU10TA6 PO
[2023-04-05 13:08] LABS: BASO # 0.1 10^3/uL (0.0-0.2); BASO % 0.8 % (0.0-1.0); EOS # 0.3 10^3/uL (0.0-0.5); HEMATOCRIT 47.3 % (42.0-52.0); HEMOGLOBIN 15.2 g/dl (13.5-17.5); LYMPH # 2.5 10^3/uL (1.5-5.0); LYMPH % 25.4 % (24.0-44.0); MEAN CORPUSCULAR HEMOGLOBIN 31.3 pg (27.0-33.0); MEAN CORPUSCULAR HGB CONC 32.1 g/dl (32.0-36.5); MEAN CORPUSCULAR VOLUME 97.5 fl (80.0-96.0); MONO # 0.8 10^3/uL (0.0-0.8); MONO % 8.5 % (2.0-8.0); PLATELET COUNT, AUTOMATED 198 10^3/uL (150-450); RED BLOOD COUNT 4.85 10^6/uL (4.30-6.10); WHITE BLOOD COUNT 9.7 10^3/uL (4.0-10.0)
[2023-04-05 13:25] LABS: BLOOD UREA NITROGEN 24 MG/DL (9-23); CREATININE FOR GFR 0.64 MG/DL (0.70-1.30); GLOMERULAR FILTRATION RATE > 60.0 (>35)
[2023-04-05 13:49] LABS: ERYTHROCYTE SEDIMENTATION RATE 107 mm/hr (0-20)
== END ==
LOC: M LABDRWAD 12:08
PROVIDERS: ATTEND Orthopaedic Surgery
DX: M54.50 Low back pain, unspecified (principal); Z79.899 Other long term (current) drug therapy

== ENCOUNTER 2023-04-10 15:53 | Inpatient (IN) | payer MEDICARE, OTHER ==
[~2023-04-10] VITALS: Ht 180.3 cm; Wt 97.6 kg
[2023-04-10] MEDS ORDERED: ACETAMINOPHEN 325 MG TAB PO ONE (16:35)
[2023-04-10 17:53] LABS: APPEARANCE, URINE CLEAR (CLEAR); BACTERIA, URINE AUTO NEGATIVE (NEGATIVE); BILIRUBIN, URINE AUTO NEGATIVE (NEGATIVE); BLOOD, URINE BLOOD 2+ (NEGATIVE); COLOR, URINE YELLOW (YELLOW); GLUCOSE, URINE (UA) AUTO NEGATIVE (NEGATIVE); KETONE, URINE AUTO NEGATIVE (NEGATIVE); LEUKOCYTE ESTERASE, URINE AUTO NEGATIVE (NEGATIVE); MUCUS, URINE SMALL (NEGATIVE); NITRITE, URINE AUTO NEGATIVE (NEGATIVE); PROTEIN, URINE AUTO NEGATIVE (NEGATIVE); RBC, URINE AUTO 33 /HPF (0-3); SPECIFIC GRAVITY URINE AUTO 1.018 (1.002-1.035); SQUAMOUS EPITHELIAL CELL UR AU 0 /HPF (0-6); WBC, URINE AUTO 3 /HPF (0-3)
[2023-04-10 17:56] LABS: BASO # 0.1 10^3/uL (0.0-0.2); BASO % 0.5 % (0.0-1.0); EOS # 0.2 10^3/uL (0.0-0.5); EOS % 1.9 % (0.0-3.0); HEMATOCRIT 42.9 % (42.0-52.0); HEMOGLOBIN 14.3 g/dl (13.5-17.5); LYMPH # 1.9 10^3/uL (1.5-5.0); LYMPH % 19.3 % (24.0-44.0); MEAN CORPUSCULAR HEMOGLOBIN 31.5 pg (27.0-33.0); MEAN CORPUSCULAR HGB CONC 33.3 g/dl (32.0-36.5); MEAN CORPUSCULAR VOLUME 94.5 fl (80.0-96.0); MONO # 0.8 10^3/uL (0.0-0.8); MONO % 8.3 % (2.0-8.0); NEUTROPHILS # 6.7 10^3/uL (1.5-8.5); NEUTROPHILS % 69.7 % (36.0-66.0); PLATELET COUNT, AUTOMATED 180 10^3/uL (150-450); RED BLOOD COUNT 4.54 10^6/uL (4.30-6.10); WHITE BLOOD COUNT 9.6 10^3/uL (4.0-10.0)
[2023-04-10 18:00] LABS: ALBUMIN 2.8 G/DL (3.2-5.2); ALKALINE PHOSPHATASE 80 U/L (46-116); ALT/SGPT 21 U/L (7.0-40); AMYLASE 52 U/L (30-118); AST/SGOT 18 U/L (<34); BILIRUBIN,DIRECT 0.2 MG/DL (<0.4); BILIRUBIN,TOTAL 0.5 MG/DL (0.3-1.2); BLOOD UREA NITROGEN 23 MG/DL (9-23); CALCIUM LEVEL 9.2 MG/DL (8.3-10.6); CARBON DIOXIDE LEVEL 28 MMOL/L (20-31); CHLORIDE LEVEL 104 MMOL/L (98-107); CREATININE FOR GFR 0.66 MG/DL (0.70-1.30); GLOMERULAR FILTRATION RATE > 60.0 (>35); GLUCOSE, FASTING 124 MG/DL (74-106); SODIUM LEVEL 143 MMOL/L (136-145); TOTAL PROTEIN 6.3 G/DL (5.7-8.2)
[2023-04-10 18:08] LABS: PROCALCITONIN 0.04 ng/ml
[2023-04-10] MEDS ORDERED: PERCOCET 5MG/325MG TAB PO ONE (20:20)
[2023-04-10] MEDS ORDERED: bisoproloL fumarate 5 MG TAB PO ONE (20:20)
[2023-04-10] MEDS ORDERED: hydroCHLOROthiazide 12.5 MG CAPSULE PO ONE (20:20)
[2023-04-10 20:42] LABS: ABG BASE EXCESS 2.9 (-2.0-2.0); ABG HCO3 26.6 MMOL/L (22.0-26.0); ABG O2 SATURATION 95.2 % (95.0-99.0); ABG PARTIAL PRESSURE CO2 37.8 mmHg (35.0-45.0); ABG PARTIAL PRESSURE O2 71.8 mmHg (75.0-100.0); ABG TOTAL CO2 27.7 MMOL/L (23.0-31.0); ABG pH (ARTERIAL) 7.465 UNITS (7.350-7.450)
[2023-04-10] MEDS ORDERED: bisoproloL fumarate 5 MG TAB PO SCH (21:00)
[2023-04-10 21:03] LABS: INR 1.13; PROTHROMBIN TIME 14.2 SECONDS (12.5-14.5)
[2023-04-10 21:04] LABS: PARTIAL THROMBOPLASTIN TIME 28.4 SECONDS (24.8-34.2)
[2023-04-10 22:18] LABS: ERYTHROCYTE SEDIMENTATION RATE 82 mm/hr (0-20)
[2023-04-10] MEDS ORDERED: OXYC-517 PO (22:38)
[2023-04-10] MEDS ORDERED: SENN8.6T58 PO (22:38)
[2023-04-10] MEDS ORDERED: VITMTA PO (22:38)
[2023-04-10] MEDS ORDERED: LIDO5TD TOP (22:38)
[2023-04-10] MEDS ORDERED: HOME MED LIST COMPLETE! XX SCH (22:40)
[2023-04-10 23:00] VITALS: BP 156/82; TEMP 97.5; O2SAT 94
[2023-04-10] MEDS ORDERED: LR 1,000 ML IV ONE (23:15)
[2023-04-10] MEDS ORDERED: PILL CUTTER 1 EACH XX PRN (23:20)
[2023-04-10] MEDS: TAMSULOSIN 0.4 MG CAP PO SCH (23:31)
[2023-04-10] MEDS: tiZANidine 4 MG TAB PO SCH (23:31)
[2023-04-10] MEDS: ASPIRIN 81MG ENTERIC TABLET PO SCH (23:31)
[2023-04-10] MEDS: ROSUVASTATIN 10 MG TAB (CRESTOR) PO SCH (23:31)
[2023-04-10] MEDS: LIDOCAINE 5% (LIDODERM) PATCH TOP SCH (23:31)
[2023-04-10] MEDS: FINASTERIDE 5MG TAB PO SCH (23:31)
[2023-04-10] MEDS: GABAPENTIN 300 MG CAP PO SCH (23:31)
[2023-04-11 05:20] VITALS: BP 148/62; TEMP 97.7; O2SAT 93
[2023-04-11 06:07] LABS: HEMATOCRIT 41.2 % (42.0-52.0); HEMOGLOBIN 13.2 g/dl (13.5-17.5); MEAN CORPUSCULAR HEMOGLOBIN 30.4 pg (27.0-33.0); MEAN CORPUSCULAR VOLUME 94.9 fl (80.0-96.0); PLATELET COUNT, AUTOMATED 156 10^3/uL (150-450); RED BLOOD COUNT 4.34 10^6/uL (4.30-6.10); WHITE BLOOD COUNT 7.2 10^3/uL (4.0-10.0)
[2023-04-11 06:36] LABS: BLOOD UREA NITROGEN 25 MG/DL (9-23); CARBON DIOXIDE LEVEL 30 MMOL/L (20-31); CHLORIDE LEVEL 101 MMOL/L (98-107); CREATININE FOR GFR 0.78 MG/DL (0.70-1.30); GLOMERULAR FILTRATION RATE > 60.0 (>35); GLUCOSE, FASTING 120 MG/DL (74-106); MAGNESIUM LEVEL 1.8 MG/DL (1.8-2.4); POTASSIUM SERUM 3.5 MMOL/L (3.5-5.1); SODIUM LEVEL 140 MMOL/L (136-145)
[2023-04-11 06:48] LABS: PROCALCITONIN 0.05 ng/ml
[2023-04-11 08:38] VITALS: BP 114/61; TEMP 97.9; O2SAT 95
[2023-04-11] MEDS: GABAPENTIN 300 MG CAP PO SCH ×3 (10:10→19:44)
[2023-04-11] MEDS: POTASSIUM CHLORIDE 10MEQ SR TABLET PO SCH (10:10)
[2023-04-11] MEDS: allopurinoL 300 MG TAB PO SCH (10:10)
[2023-04-11] MEDS: SENNA 8.6 MG TAB (SENOKOT) PO SCH (10:11)
[2023-04-11] MEDS: ACETAMINOPHEN TAB 650MG DOSE (2X325MG) PO PRN (10:12)
[2023-04-11] MEDS: ENOXAPARIN 40MG/0.4ML SYRINGE (J1650 PER 10MG) SC SCH (10:14)
[2023-04-11] MEDS: hydroCHLOROthiazide 12.5 MG CAPSULE PO SCH (10:17)
[2023-04-11 10:42] VITALS: BP 108/53
[2023-04-11 13:49] VITALS: BP 127/42; TEMP 97.9; O2SAT 94
[2023-04-11] MEDS: oxyCODONE 5MG TAB PO PRN (14:23)
[2023-04-11 15:44] VITALS: BP 113/53; TEMP 97.9; O2SAT 96
[2023-04-11 19:30] VITALS: BP 126/71; TEMP 98.1; O2SAT 93
[2023-04-11] MEDS: tiZANidine 4 MG TAB PO SCH (19:44)
[2023-04-11] MEDS: FINASTERIDE 5MG TAB PO SCH (19:44)
[2023-04-11] MEDS: TAMSULOSIN 0.4 MG CAP PO SCH (19:44)
[2023-04-11] MEDS: MICONAZOLE 2 % POWDER (DESENEX) TOP SCH (19:44)
[2023-04-11] MEDS: ASPIRIN 81MG ENTERIC TABLET PO SCH (19:44)
[2023-04-11] MEDS: LIDOCAINE 5% (LIDODERM) PATCH TOP SCH (19:45)
[2023-04-11] MEDS: bisoproloL fumarate 5 MG TAB PO SCH (19:45)
[2023-04-11] MEDS: ROSUVASTATIN 10 MG TAB (CRESTOR) PO SCH (19:45)
[2023-04-12 05:30] VITALS: BP 128/86; TEMP 97.7; O2SAT 95
[2023-04-12 06:06] LABS: BASO # 0.1 10^3/uL (0.0-0.2); BASO % 0.8 % (0.0-1.0); EOS # 0.3 10^3/uL (0.0-0.5); EOS % 5.2 % (0.0-3.0); HEMATOCRIT 41.6 % (42.0-52.0); HEMOGLOBIN 13.5 g/dl (13.5-17.5); LYMPH % 31.4 % (24.0-44.0); MEAN CORPUSCULAR HGB CONC 32.5 g/dl (32.0-36.5); MEAN CORPUSCULAR VOLUME 95.6 fl (80.0-96.0); MONO # 0.6 10^3/uL (0.0-0.8); MONO % 9.6 % (2.0-8.0); NEUTROPHILS # 3.4 10^3/uL (1.5-8.5); NEUTROPHILS % 52.8 % (36.0-66.0); PLATELET COUNT, AUTOMATED 158 10^3/uL (150-450); RED BLOOD COUNT 4.35 10^6/uL (4.30-6.10); WHITE BLOOD COUNT 6.5 10^3/uL (4.0-10.0)
[2023-04-12 06:29] LABS: ERYTHROCYTE SEDIMENTATION RATE 78 mm/hr (0-20)
[2023-04-12 06:36] LABS: BLOOD UREA NITROGEN 28 MG/DL (9-23); CALCIUM LEVEL 8.8 MG/DL (8.3-10.6); CARBON DIOXIDE LEVEL 33 MMOL/L (20-31); CHLORIDE LEVEL 101 MMOL/L (98-107); CREATININE FOR GFR 0.82 MG/DL (0.70-1.30); GLOMERULAR FILTRATION RATE > 60.0 (>35); GLUCOSE, FASTING 124 MG/DL (74-106); SODIUM LEVEL 140 MMOL/L (136-145)
[2023-04-12] MEDS: hydroCHLOROthiazide 12.5 MG CAPSULE PO SCH (09:00)
[2023-04-12] MEDS: SENNA 8.6 MG TAB (SENOKOT) PO SCH (09:09)
[2023-04-12] MEDS: ENOXAPARIN 40MG/0.4ML SYRINGE (J1650 PER 10MG) SC SCH (09:09)
[2023-04-12] MEDS: allopurinoL 300 MG TAB PO SCH (09:09)
[2023-04-12] MEDS: POTASSIUM CHLORIDE 10MEQ SR TABLET PO SCH (09:09)
[2023-04-12] MEDS: GABAPENTIN 300 MG CAP PO SCH ×3 (09:09→19:32)
[2023-04-12] MEDS: ACETAMINOPHEN TAB 650MG DOSE (2X325MG) PO PRN ×2 (09:10→19:32)
[2023-04-12] MEDS: MICONAZOLE 2 % POWDER (DESENEX) TOP SCH ×2 (09:10→19:35)
[2023-04-12 09:15] VITALS: BP 115/51
[2023-04-12 14:00] VITALS: BP 120/54; TEMP 98.1; O2SAT 92
[2023-04-12] MEDS: tiZANidine 4 MG TAB PO SCH (19:32)
[2023-04-12] MEDS: TAMSULOSIN 0.4 MG CAP PO SCH (19:32)
[2023-04-12] MEDS: ASPIRIN 81MG ENTERIC TABLET PO SCH (19:32)
[2023-04-12] MEDS: bisoproloL fumarate 5 MG TAB PO SCH (19:33)
[2023-04-12] MEDS: FINASTERIDE 5MG TAB PO SCH (19:33)
[2023-04-12] MEDS: LIDOCAINE 5% (LIDODERM) PATCH TOP SCH (19:34)
[2023-04-12] MEDS: ROSUVASTATIN 10 MG TAB (CRESTOR) PO SCH (19:36)
[2023-04-12 22:03] VITALS: BP 165/85; TEMP 98.6; O2SAT 93
[2023-04-13] MEDS: ACETAMINOPHEN TAB 650MG DOSE (2X325MG) PO PRN (05:43)
[2023-04-13 06:03] VITALS: BP 163/89; TEMP 97.7; O2SAT 93
[2023-04-13 06:09] LABS: BASO # 0.1 10^3/uL (0.0-0.2); BASO % 1.3 % (0.0-1.0); EOS # 0.4 10^3/uL (0.0-0.5); EOS % 6.6 % (0.0-3.0); HEMATOCRIT 44.6 % (42.0-52.0); HEMOGLOBIN 14.3 g/dl (13.5-17.5); LYMPH # 2.3 10^3/uL (1.5-5.0); LYMPH % 42.3 % (24.0-44.0); MEAN CORPUSCULAR HEMOGLOBIN 30.4 pg (27.0-33.0); MEAN CORPUSCULAR HGB CONC 32.1 g/dl (32.0-36.5); MEAN CORPUSCULAR VOLUME 94.7 fl (80.0-96.0); MONO # 0.6 10^3/uL (0.0-0.8); MONO % 10.9 % (2.0-8.0); NEUTROPHILS # 2.1 10^3/uL (1.5-8.5); NEUTROPHILS % 38.7 % (36.0-66.0); PLATELET COUNT, AUTOMATED 172 10^3/uL (150-450); RED BLOOD COUNT 4.71 10^6/uL (4.30-6.10); WHITE BLOOD COUNT 5.4 10^3/uL (4.0-10.0)
[2023-04-13 06:39] LABS: BLOOD UREA NITROGEN 19 MG/DL (9-23); CALCIUM LEVEL 9.1 MG/DL (8.3-10.6); CARBON DIOXIDE LEVEL 32 MMOL/L (20-31); CHLORIDE LEVEL 104 MMOL/L (98-107); CREATININE FOR GFR 0.69 MG/DL (0.70-1.30); GLOMERULAR FILTRATION RATE > 60.0 (>35); GLUCOSE, FASTING 125 MG/DL (74-106); POTASSIUM SERUM 3.6 MMOL/L (3.5-5.1); SODIUM LEVEL 144 MMOL/L (136-145)
[2023-04-13 07:06] LABS: ERYTHROCYTE SEDIMENTATION RATE 89 mm/hr (0-20)
[2023-04-13 07:54] LABS: PROCALCITONIN 0.04 ng/ml
[2023-04-13] MEDS: SENNA 8.6 MG TAB (SENOKOT) PO SCH (09:03)
[2023-04-13] MEDS: allopurinoL 300 MG TAB PO SCH (09:04)
[2023-04-13] MEDS: ENOXAPARIN 40MG/0.4ML SYRINGE (J1650 PER 10MG) SC SCH (09:04)
[2023-04-13] MEDS: hydroCHLOROthiazide 12.5 MG CAPSULE PO SCH (09:04)
[2023-04-13] MEDS: GABAPENTIN 300 MG CAP PO SCH ×3 (09:04→20:54)
[2023-04-13] MEDS: POTASSIUM CHLORIDE 10MEQ SR TABLET PO SCH (09:04)
[2023-04-13] MEDS: oxyCODONE 5MG TAB PO PRN ×2 (09:04→17:32)
[2023-04-13] MEDS: MICONAZOLE 2 % POWDER (DESENEX) TOP SCH ×3 (09:05→20:58)
[2023-04-13 09:06] VITALS: BP 156/79
[2023-04-13 14:00] VITALS: BP 142/74; TEMP 97.9; O2SAT 91
[2023-04-13] MEDS: tiZANidine 4 MG TAB PO SCH (20:54)
[2023-04-13] MEDS: ASPIRIN 81MG ENTERIC TABLET PO SCH (20:54)
[2023-04-13] MEDS: FINASTERIDE 5MG TAB PO SCH (20:55)
[2023-04-13] MEDS: TAMSULOSIN 0.4 MG CAP PO SCH (20:55)
[2023-04-13] MEDS: bisoproloL fumarate 5 MG TAB PO SCH (20:55)
[2023-04-13] MEDS: ROSUVASTATIN 10 MG TAB (CRESTOR) PO SCH (20:55)
[2023-04-13] MEDS: LIDOCAINE 5% (LIDODERM) PATCH TOP SCH (20:56)
[2023-04-13 22:00] VITALS: BP 143/78; TEMP 97.2; O2SAT 93
[2023-04-14 05:28] VITALS: BP_SYST 156; BP_SYST 170; BP_DIAS 80; BP_DIAS 86; TEMP 97.6; TEMP 97.8; O2SAT 90; O2SAT 91
[2023-04-14 06:30] LABS: BASO # 0.1 10^3/uL (0.0-0.2); EOS # 0.4 10^3/uL (0.0-0.5); EOS % 7.2 % (0.0-3.0); HEMATOCRIT 43.7 % (42.0-52.0); LYMPH # 2.2 10^3/uL (1.5-5.0); LYMPH % 37.1 % (24.0-44.0); MEAN CORPUSCULAR HEMOGLOBIN 30.7 pg (27.0-33.0); MEAN CORPUSCULAR VOLUME 95.8 fl (80.0-96.0); MONO # 0.7 10^3/uL (0.0-0.8); MONO % 10.9 % (2.0-8.0); NEUTROPHILS # 2.6 10^3/uL (1.5-8.5); NEUTROPHILS % 43.6 % (36.0-66.0); PLATELET COUNT, AUTOMATED 176 10^3/uL (150-450); RED BLOOD COUNT 4.56 10^6/uL (4.30-6.10)
[2023-04-14 06:39] LABS: ERYTHROCYTE SEDIMENTATION RATE 75 mm/hr (0-20)
[2023-04-14 06:56] LABS: BLOOD UREA NITROGEN 18 MG/DL (9-23); CALCIUM LEVEL 9.2 MG/DL (8.3-10.6); CARBON DIOXIDE LEVEL 33 MMOL/L (20-31); CHLORIDE LEVEL 101 MMOL/L (98-107); CREATININE FOR GFR 0.64 MG/DL (0.70-1.30); GLOMERULAR FILTRATION RATE > 60.0 (>35); GLUCOSE, FASTING 119 MG/DL (74-106); POTASSIUM SERUM 3.8 MMOL/L (3.5-5.1); SODIUM LEVEL 140 MMOL/L (136-145)
[2023-04-14] MEDS: SENNA 8.6 MG TAB (SENOKOT) PO SCH (09:19)
[2023-04-14] MEDS: hydroCHLOROthiazide 12.5 MG CAPSULE PO SCH (09:19)
[2023-04-14] MEDS: POTASSIUM CHLORIDE 10MEQ SR TABLET PO SCH (09:19)
[2023-04-14] MEDS: GABAPENTIN 300 MG CAP PO SCH ×3 (09:19→20:13)
[2023-04-14] MEDS: ENOXAPARIN 40MG/0.4ML SYRINGE (J1650 PER 10MG) SC SCH (09:19)
[2023-04-14] MEDS: predniSONE 20 MG TAB PO SCH (09:19)
[2023-04-14] MEDS: allopurinoL 300 MG TAB PO SCH (09:19)
[2023-04-14] MEDS: MICONAZOLE 2 % POWDER (DESENEX) TOP SCH ×2 (09:20→20:15)
[2023-04-14 09:23] VITALS: BP 144/77
[2023-04-14] MEDS: oxyCODONE 5MG TAB PO PRN ×2 (09:26→16:08)
[2023-04-14 14:19] VITALS: BP 171/92; TEMP 98.6; O2SAT 93
[2023-04-14 14:29] VITALS: BP 164/82
[2023-04-14 20:06] VITALS: BP 153/89; TEMP 97.9; O2SAT 92
[2023-04-14] MEDS: ASPIRIN 81MG ENTERIC TABLET PO SCH (20:12)
[2023-04-14] MEDS: ROSUVASTATIN 10 MG TAB (CRESTOR) PO SCH (20:12)
[2023-04-14] MEDS: FINASTERIDE 5MG TAB PO SCH (20:13)
[2023-04-14] MEDS: TAMSULOSIN 0.4 MG CAP PO SCH (20:13)
[2023-04-14] MEDS: tiZANidine 4 MG TAB PO SCH (20:13)
[2023-04-14] MEDS: LIDOCAINE 5% (LIDODERM) PATCH TOP SCH (20:13)
[2023-04-14] MEDS: bisoproloL fumarate 5 MG TAB PO SCH (20:14)
[2023-04-15 05:15] VITALS: BP 134/75; TEMP 92.7; O2SAT 93
[2023-04-15 06:10] LABS: BASO # 0.1 10^3/uL (0.0-0.2); BASO % 0.7 % (0.0-1.0); EOS # 0.2 10^3/uL (0.0-0.5); HEMATOCRIT 41.9 % (42.0-52.0); HEMOGLOBIN 13.8 g/dl (13.5-17.5); LYMPH # 2.6 10^3/uL (1.5-5.0); LYMPH % 35.8 % (24.0-44.0); MEAN CORPUSCULAR HEMOGLOBIN 30.6 pg (27.0-33.0); MEAN CORPUSCULAR HGB CONC 32.9 g/dl (32.0-36.5); MEAN CORPUSCULAR VOLUME 92.9 fl (80.0-96.0); MONO # 0.8 10^3/uL (0.0-0.8); MONO % 10.9 % (2.0-8.0); NEUTROPHILS # 3.7 10^3/uL (1.5-8.5); NEUTROPHILS % 50.3 % (36.0-66.0); PLATELET COUNT, AUTOMATED 185 10^3/uL (150-450); RED BLOOD COUNT 4.51 10^6/uL (4.30-6.10); WHITE BLOOD COUNT 7.4 10^3/uL (4.0-10.0)
[2023-04-15 06:37] LABS: BLOOD UREA NITROGEN 21 MG/DL (9-23); CALCIUM LEVEL 9.1 MG/DL (8.3-10.6); CARBON DIOXIDE LEVEL 31 MMOL/L (20-31); CHLORIDE LEVEL 103 MMOL/L (98-107); CREATININE FOR GFR 0.69 MG/DL (0.70-1.30); GLOMERULAR FILTRATION RATE > 60.0 (>35); GLUCOSE, FASTING 117 MG/DL (74-106); POTASSIUM SERUM 3.9 MMOL/L (3.5-5.1); SODIUM LEVEL 140 MMOL/L (136-145)
[2023-04-15 06:53] LABS: ERYTHROCYTE SEDIMENTATION RATE 60 mm/hr (0-20)
[2023-04-15] MEDS ORDERED: oxyCODONE 5MG TAB PO ONE (08:50)
[2023-04-15] MEDS: hydroCHLOROthiazide 12.5 MG CAPSULE PO SCH (08:57)
[2023-04-15] MEDS: GABAPENTIN 300 MG CAP PO SCH ×3 (09:02→20:57)
[2023-04-15] MEDS: SENNA 8.6 MG TAB (SENOKOT) PO SCH (09:02)
[2023-04-15] MEDS: MICONAZOLE 2 % POWDER (DESENEX) TOP SCH ×2 (09:03→20:59)
[2023-04-15] MEDS: ENOXAPARIN 40MG/0.4ML SYRINGE (J1650 PER 10MG) SC SCH (09:03)
[2023-04-15] MEDS: POTASSIUM CHLORIDE 10MEQ SR TABLET PO SCH (09:03)
[2023-04-15] MEDS: predniSONE 20 MG TAB PO SCH (09:03)
[2023-04-15] MEDS: allopurinoL 300 MG TAB PO SCH (09:03)
[2023-04-15 12:53] VITALS: BP 128/59; TEMP 98.1; O2SAT 94
[2023-04-15 14:00] VITALS: BP 156/86; TEMP 97.7; O2SAT 93
[2023-04-15 14:10] LABS: ANTINUCLEAR ANTIBODIES DIRECT Negative (Negative)
[2023-04-15] MEDS: oxyCODONE 5MG TAB PO PRN (16:44)
[2023-04-15 20:00] VITALS: BP 145/81; TEMP 97.7; O2SAT 93
[2023-04-15] MEDS: TAMSULOSIN 0.4 MG CAP PO SCH (20:57)
[2023-04-15] MEDS: ASPIRIN 81MG ENTERIC TABLET PO SCH (20:57)
[2023-04-15] MEDS: FINASTERIDE 5MG TAB PO SCH (20:57)
[2023-04-15] MEDS: ROSUVASTATIN 10 MG TAB (CRESTOR) PO SCH (20:57)
[2023-04-15] MEDS: tiZANidine 4 MG TAB PO SCH (20:58)
[2023-04-15] MEDS: LIDOCAINE 5% (LIDODERM) PATCH TOP SCH (20:59)
[2023-04-15] MEDS: bisoproloL fumarate 5 MG TAB PO SCH (20:59)
[2023-04-16 05:10] VITALS: BP 135/70; TEMP 97.9; O2SAT 93
[2023-04-16 06:02] LABS: BASO # 0.1 10^3/uL (0.0-0.2); BASO % 0.8 % (0.0-1.0); EOS # 0.1 10^3/uL (0.0-0.5); EOS % 1.8 % (0.0-3.0); HEMATOCRIT 43.1 % (42.0-52.0); HEMOGLOBIN 14.1 g/dl (13.5-17.5); LYMPH # 3.1 10^3/uL (1.5-5.0); LYMPH % 39.1 % (24.0-44.0); MEAN CORPUSCULAR HEMOGLOBIN 31.1 pg (27.0-33.0); MEAN CORPUSCULAR HGB CONC 32.7 g/dl (32.0-36.5); MEAN CORPUSCULAR VOLUME 94.9 fl (80.0-96.0); MONO # 0.8 10^3/uL (0.0-0.8); MONO % 9.6 % (2.0-8.0); NEUTROPHILS # 3.8 10^3/uL (1.5-8.5); NEUTROPHILS % 48.4 % (36.0-66.0); PLATELET COUNT, AUTOMATED 194 10^3/uL (150-450); RED BLOOD COUNT 4.54 10^6/uL (4.30-6.10); WHITE BLOOD COUNT 7.9 10^3/uL (4.0-10.0)
[2023-04-16 06:22] LABS: C REACTIVE PROTEIN QUANTITATIV < 0.40 MG/DL (<1.0)
[2023-04-16 06:24] LABS: BLOOD UREA NITROGEN 25 MG/DL (9-23); CARBON DIOXIDE LEVEL 30 MMOL/L (20-31); CHLORIDE LEVEL 104 MMOL/L (98-107); GLOMERULAR FILTRATION RATE > 60.0 (>35); GLUCOSE, FASTING 135 MG/DL (74-106); POTASSIUM SERUM 3.9 MMOL/L (3.5-5.1); SODIUM LEVEL 141 MMOL/L (136-145)
[2023-04-16 06:39] LABS: ERYTHROCYTE SEDIMENTATION RATE 49 mm/hr (0-20)
[2023-04-16] MEDS: ENOXAPARIN 40MG/0.4ML SYRINGE (J1650 PER 10MG) SC SCH (08:40)
[2023-04-16] MEDS: SENNA 8.6 MG TAB (SENOKOT) PO SCH (08:40)
[2023-04-16] MEDS: allopurinoL 300 MG TAB PO SCH (08:40)
[2023-04-16] MEDS: POTASSIUM CHLORIDE 10MEQ SR TABLET PO SCH (08:40)
[2023-04-16] MEDS: hydroCHLOROthiazide 12.5 MG CAPSULE PO SCH (08:40)
[2023-04-16] MEDS: GABAPENTIN 300 MG CAP PO SCH ×3 (08:41→21:06)
[2023-04-16] MEDS: MICONAZOLE 2 % POWDER (DESENEX) TOP SCH ×2 (08:41→21:08)
[2023-04-16] MEDS: oxyCODONE 5MG TAB PO PRN (08:41)
[2023-04-16] MEDS: predniSONE 20 MG TAB PO SCH (08:41)
[2023-04-16 14:00] VITALS: BP 147/82; TEMP 98.1; O2SAT 91
[2023-04-16 20:00] VITALS: BP 151/82; TEMP 97.9; O2SAT 90
[2023-04-16] MEDS: ASPIRIN 81MG ENTERIC TABLET PO SCH (21:04)
[2023-04-16] MEDS: FINASTERIDE 5MG TAB PO SCH (21:05)
[2023-04-16 21:06] VITALS: BP 151/82
[2023-04-16] MEDS: bisoproloL fumarate 5 MG TAB PO SCH (21:06)
[2023-04-16] MEDS: TAMSULOSIN 0.4 MG CAP PO SCH (21:06)
[2023-04-16] MEDS: ROSUVASTATIN 10 MG TAB (CRESTOR) PO SCH (21:07)
[2023-04-16] MEDS: tiZANidine 4 MG TAB PO SCH (21:07)
[2023-04-16] MEDS: LIDOCAINE 5% (LIDODERM) PATCH TOP SCH (21:08)
[2023-04-17 06:00] VITALS: BP 160/80; TEMP 97.7; O2SAT 92
[2023-04-17 06:23] LABS: BASO # 0.1 10^3/uL (0.0-0.2); BASO % 0.7 % (0.0-1.0); EOS # 0.2 10^3/uL (0.0-0.5); EOS % 2.1 % (0.0-3.0); HEMATOCRIT 43.5 % (42.0-52.0); HEMOGLOBIN 14.2 g/dl (13.5-17.5); MEAN CORPUSCULAR HEMOGLOBIN 30.7 pg (27.0-33.0); MEAN CORPUSCULAR HGB CONC 32.6 g/dl (32.0-36.5); NEUTROPHILS # 4.5 10^3/uL (1.5-8.5); NEUTROPHILS % 51.7 % (36.0-66.0); PLATELET COUNT, AUTOMATED 197 10^3/uL (150-450); RED BLOOD COUNT 4.63 10^6/uL (4.30-6.10); WHITE BLOOD COUNT 8.7 10^3/uL (4.0-10.0)
[2023-04-17 06:38] LABS: BLOOD UREA NITROGEN 18 MG/DL (9-23); CALCIUM LEVEL 8.8 MG/DL (8.3-10.6); CARBON DIOXIDE LEVEL 28 MMOL/L (20-31); CHLORIDE LEVEL 102 MMOL/L (98-107); CREATININE FOR GFR 0.63 MG/DL (0.70-1.30); GLOMERULAR FILTRATION RATE > 60.0 (>35); GLUCOSE, FASTING 129 MG/DL (74-106); POTASSIUM SERUM 3.9 MMOL/L (3.5-5.1); SODIUM LEVEL 139 MMOL/L (136-145)
[2023-04-17] MEDS: ACETAMINOPHEN TAB 650MG DOSE (2X325MG) PO PRN (09:00)
[2023-04-17] MEDS: ENOXAPARIN 40MG/0.4ML SYRINGE (J1650 PER 10MG) SC SCH (09:00)
[2023-04-17] MEDS: predniSONE 20 MG TAB PO SCH (09:00)
[2023-04-17] MEDS: MICONAZOLE 2 % POWDER (DESENEX) TOP SCH (09:01)
[2023-04-17] MEDS: SENNA 8.6 MG TAB (SENOKOT) PO SCH (09:01)
[2023-04-17] MEDS: POTASSIUM CHLORIDE 10MEQ SR TABLET PO SCH (09:01)
[2023-04-17] MEDS: allopurinoL 300 MG TAB PO SCH (09:01)
[2023-04-17] MEDS: GABAPENTIN 300 MG CAP PO SCH (09:01)
[2023-04-17] MEDS: hydroCHLOROthiazide 12.5 MG CAPSULE PO SCH (09:02)
[2023-04-17 09:08] VITALS: BP 157/66
[2023-04-17 09:54] LABS: C REACTIVE PROTEIN QUANTITATIV < 0.40 MG/DL (<1.0)
[2023-04-17 10:03] LABS: PROCALCITONIN <0.04 ng/ml
[2023-04-17 10:10] LABS: ERYTHROCYTE SEDIMENTATION RATE 37 mm/hr (0-20)
[2023-04-17] MEDS ORDERED: OXYC-517 PO (10:55)
[2023-04-17] MEDS ORDERED: MIRA3350 PO (10:55)
[2023-04-17] MEDS: oxyCODONE 5MG TAB PO PRN (11:50)
== END 2023-04-17 13:21 | disposition home health service (06) | DRG 690 ==
LOC: M ED 15:53 → M ED INP 21:50 → M MSPAV 22:43
PROVIDERS: ADMIT Internal Medicine; ATTEND General Practice
DX: N39.0 Urinary tract infection, site not specified (principal); M48.061 Spinal stenosis, lumbar region without neurogenic claudication; M47.896 Other spondylosis, lumbar region; N40.0 Benign prostatic hyperplasia without lower urinary tract symptoms; I25.10 Atherosclerotic heart disease of native coronary artery without angina pectoris; E78.5 Hyperlipidemia, unspecified; I10 Essential (primary) hypertension; M10.9 Gout, unspecified; R26.89 Other abnormalities of gait and mobility; M51.36 Other intervertebral disc degeneration, lumbar region; L89.322 Pressure ulcer of left buttock, stage 2; B96.4 Proteus (mirabilis) (morganii) as the cause of diseases classified elsewhere; Z96.651 Presence of right artificial knee joint; Z95.0 Presence of cardiac pacemaker; Z90.49 Acquired absence of other specified parts of digestive tract; Z95.5 Presence of coronary angioplasty implant and graft; Z79.82 Long term (current) use of aspirin; Z79.899 Other long term (current) drug therapy; Z88.6 Allergy status to analgesic agent; Z88.8 Allergy status to other drugs, medicaments and biological substances; Z20.822 Contact with and (suspected) exposure to COVID-19

== ENCOUNTER → 2023-05-22 | Outpatient (REF) ==
[~2023-05-22] MED LIST changes: -FLUT50SP17 NARES; +FLUTISP NARES; +LIDO5TD TOP; +MIRA3350 PO; +OXYC-517 PO; +SENN8.6T58 PO
[2023-05-22 11:54] LABS: HEMATOCRIT 36.1 % (42.0-52.0); HEMOGLOBIN 11.6 g/dl (13.5-17.5); MEAN CORPUSCULAR HGB CONC 32.1 g/dl (32.0-36.5); MEAN CORPUSCULAR VOLUME 93.3 fl (80.0-96.0); PLATELET COUNT, AUTOMATED 325 10^3/uL (150-450); RED BLOOD COUNT 3.87 10^6/uL (4.30-6.10); WHITE BLOOD COUNT 8.7 10^3/uL (4.0-10.0)
[2023-05-22 12:27] LABS: BLOOD UREA NITROGEN 14 MG/DL (9-23); CARBON DIOXIDE LEVEL 29 MMOL/L (20-31); CHLORIDE LEVEL 102 MMOL/L (98-107); CREATININE FOR GFR 0.54 MG/DL (0.70-1.30); GLOMERULAR FILTRATION RATE > 60.0 (>35); GLUCOSE, FASTING 149 MG/DL (74-106); SODIUM LEVEL 140 MMOL/L (136-145)
== END ==
PROVIDERS: ATTEND Internal Medicine
DX: I10 Essential (primary) hypertension (principal)

== ENCOUNTER → 2023-05-26 | Outpatient (REF) ==
[2023-05-26 10:54] LABS: BLOOD UREA NITROGEN 24 MG/DL (9-23); CARBON DIOXIDE LEVEL 31 MMOL/L (20-31); CHLORIDE LEVEL 98 MMOL/L (98-107); CREATININE FOR GFR 0.72 MG/DL (0.70-1.30); GLOMERULAR FILTRATION RATE > 60.0 (>35); GLUCOSE, FASTING 167 MG/DL (74-106); POTASSIUM SERUM 4.1 MMOL/L (3.5-5.1); SODIUM LEVEL 139 MMOL/L (136-145)
== END ==
PROVIDERS: ATTEND Internal Medicine
DX: J44.9 Chronic obstructive pulmonary disease, unspecified (principal)

== ENCOUNTER → 2023-05-26 | Outpatient (REF) | payer MEDICARE, OTHER | PROVIDERS: ATTEND Internal Medicine | DX: J44.9 Chronic obstructive pulmonary disease, unspecified (principal) ==

== ENCOUNTER → 2023-05-29 | Outpatient (REF) | payer MEDICARE, OTHER | PROVIDERS: ATTEND Internal Medicine | DX: R05.9 Cough, unspecified (principal) ==

== ENCOUNTER → 2023-05-29 | Outpatient (REF) ==
[2023-05-29 11:14] LABS: HEMATOCRIT 37.6 % (42.0-52.0); HEMOGLOBIN 12.1 g/dl (13.5-17.5); MEAN CORPUSCULAR HEMOGLOBIN 29.4 pg (27.0-33.0); MEAN CORPUSCULAR HGB CONC 32.2 g/dl (32.0-36.5); MEAN CORPUSCULAR VOLUME 91.3 fl (80.0-96.0); PLATELET COUNT, AUTOMATED 249 10^3/uL (150-450); RED BLOOD COUNT 4.12 10^6/uL (4.30-6.10); WHITE BLOOD COUNT 13.4 10^3/uL (4.0-10.0)
[2023-05-29 11:38] LABS: URIC ACID 4.4 MG/DL (3.7-9.2)
[2023-05-29 11:40] LABS: BLOOD UREA NITROGEN 23 MG/DL (9-23); CALCIUM LEVEL 8.9 MG/DL (8.3-10.6); CARBON DIOXIDE LEVEL 28 MMOL/L (20-31); CHLORIDE LEVEL 100 MMOL/L (98-107); CREATININE FOR GFR 0.67 MG/DL (0.70-1.30); GLOMERULAR FILTRATION RATE > 60.0 (>35); GLUCOSE, FASTING 131 MG/DL (74-106); POTASSIUM SERUM 4.2 MMOL/L (3.5-5.1); SODIUM LEVEL 137 MMOL/L (136-145)
== END ==
PROVIDERS: ATTEND Internal Medicine
DX: I10 Essential (primary) hypertension (principal)

== ENCOUNTER → 2023-05-29 | Outpatient (REF) | PROVIDERS: ATTEND Physician Assistant | DX: R05.9 Cough, unspecified (principal) ==

== ENCOUNTER → 2023-05-29 | Outpatient (REF) | PROVIDERS: ATTEND Physician Assistant | DX: J44.9 Chronic obstructive pulmonary disease, unspecified (principal); Z53.8 Procedure and treatment not carried out for other reasons ==

== ENCOUNTER → 2023-06-06 | Outpatient (REF) ==
[2023-06-06 10:10] LABS: BLOOD UREA NITROGEN 20 MG/DL (9-23); CALCIUM LEVEL 8.9 MG/DL (8.3-10.6); CARBON DIOXIDE LEVEL 29 MMOL/L (20-31); CHLORIDE LEVEL 97 MMOL/L (98-107); GLOMERULAR FILTRATION RATE > 60.0 (>35); GLUCOSE, FASTING 157 MG/DL (74-106); POTASSIUM SERUM 3.7 MMOL/L (3.5-5.1); SODIUM LEVEL 134 MMOL/L (136-145)
== END ==
PROVIDERS: ATTEND Physician Assistant
DX: I50.9 Heart failure, unspecified (principal)

== ENCOUNTER → 2023-06-13 | Outpatient (REF) ==
[2023-06-13 14:13] LABS: BLOOD UREA NITROGEN 15 MG/DL (9-23); CALCIUM LEVEL 8.4 MG/DL (8.3-10.6); CARBON DIOXIDE LEVEL 32 MMOL/L (20-31); CHLORIDE LEVEL 98 MMOL/L (98-107); CREATININE FOR GFR 0.59 MG/DL (0.70-1.30); GLOMERULAR FILTRATION RATE > 60.0 (>35); GLUCOSE, FASTING 108 MG/DL (74-106); SODIUM LEVEL 138 MMOL/L (136-145)
== END ==
PROVIDERS: ATTEND Physician Assistant
DX: I50.9 Heart failure, unspecified (principal)

== ENCOUNTER → 2023-06-16 | Outpatient (REF) | PROVIDERS: ATTEND Physician Assistant | DX: E87.5 Hyperkalemia (principal) ==

== ENCOUNTER → 2023-06-19 | Outpatient (REF) ==
[~2023-06-19] MED LIST changes: +DESI13CR2 TOP; +ELIQ5TAB PO; +FURO40TA2 PO; +PANT40TA29 PO; +PROBCAP14 PO
[2023-06-19 18:59] LABS: HEMATOCRIT 40.4 % (42.0-52.0); MEAN CORPUSCULAR HEMOGLOBIN 28.7 pg (27.0-33.0); MEAN CORPUSCULAR HGB CONC 32.2 g/dl (32.0-36.5); MEAN CORPUSCULAR VOLUME 89.2 fl (80.0-96.0); PLATELET COUNT, AUTOMATED 203 10^3/uL (150-450); RED BLOOD COUNT 4.53 10^6/uL (4.30-6.10); WHITE BLOOD COUNT 7.4 10^3/uL (4.0-10.0)
[2023-06-19 19:25] LABS: BLOOD UREA NITROGEN 18 MG/DL (9-23); CALCIUM LEVEL 8.6 MG/DL (8.3-10.6); CARBON DIOXIDE LEVEL 32 MMOL/L (20-31); CHLORIDE LEVEL 98 MMOL/L (98-107); CREATININE FOR GFR 0.76 MG/DL (0.70-1.30); GLOMERULAR FILTRATION RATE > 60.0 (>35); GLUCOSE, FASTING 75 MG/DL (74-106); POTASSIUM SERUM 3.8 MMOL/L (3.5-5.1); SODIUM LEVEL 138 MMOL/L (136-145)
== END ==
PROVIDERS: ATTEND Physician Assistant
DX: U07.1 COVID-19 (principal)

== ENCOUNTER → 2023-06-19 | Outpatient (REF) | PROVIDERS: ATTEND Physician Assistant | DX: U07.1 COVID-19 (principal) ==

== ENCOUNTER 2023-06-21 14:00 | Inpatient (IN) | payer MEDICARE, OTHER ==
[~2023-06-21] VITALS: Ht 188 cm; Wt 92.2 kg
[~2023-06-21 14:00] MED LIST changes: -DESI13CR2 TOP; -ELIQ5TAB PO; -FURO40TA2 PO; -PANT40TA29 PO; -PROBCAP14 PO
[2023-06-21] MEDS ORDERED: ACETAMINOPHEN 650MG SUPP PR ONE (14:40)
[2023-06-21 14:54] LABS: VENOUS BASE EXCESS 6.8 (-2.0-2.0); VENOUS HCO3 31.4 MMOL/L (23.0-27.0); VENOUS PARTIAL PRESSURE CO2 44.5 mmHg (38.0-50.0); VENOUS PARTIAL PRESSURE O2 82.1 mmHg (30.0-50.0); VENOUS PH 7.466 UNITS (7.330-7.430); VENOUS STANDARD HCO3 30.6 MMOL/L; VENOUS TOTAL CO2 32.7 MMOL/L (24.0-28.0)
[2023-06-21] MEDS ORDERED: LIDOCAINE 2% 5ML JELLY UROJET TOP ONE (14:55)
[2023-06-21 15:00] LABS: BASO % 0.4 % (0.0-1.0); EOS # 0.2 10^3/uL (0.0-0.5); EOS % 2.8 % (0.0-3.0); HEMOGLOBIN 12.6 g/dl (13.5-17.5); LYMPH # 1.9 10^3/uL (1.5-5.0); LYMPH % 27.4 % (24.0-44.0); MEAN CORPUSCULAR HEMOGLOBIN 28.8 pg (27.0-33.0); MEAN CORPUSCULAR HGB CONC 32.3 g/dl (32.0-36.5); MONO # 0.6 10^3/uL (0.0-0.8); MONO % 8.1 % (2.0-8.0); NEUTROPHILS # 4.2 10^3/uL (1.5-8.5); NEUTROPHILS % 60.7 % (36.0-66.0); PLATELET COUNT, AUTOMATED 202 10^3/uL (150-450); RED BLOOD COUNT 4.38 10^6/uL (4.30-6.10); WHITE BLOOD COUNT 6.9 10^3/uL (4.0-10.0)
[2023-06-21 15:12] LABS: INR 1.47; PROTHROMBIN TIME 17.3 SECONDS (12.5-14.5)
[2023-06-21 15:13] LABS: PARTIAL THROMBOPLASTIN TIME 38.6 SECONDS (24.8-34.2)
[2023-06-21 15:15] LABS: AMYLASE 31 U/L (30-118)
[2023-06-21 15:16] LABS: ALBUMIN 2.4 G/DL (3.2-5.2); ALKALINE PHOSPHATASE 95 U/L (46-116); ALT/SGPT 19 U/L (7.0-40); AST/SGOT 22 U/L (<34); BILIRUBIN,DIRECT 0.5 MG/DL (<0.4); BILIRUBIN,TOTAL 1.1 MG/DL (0.3-1.2); BLOOD UREA NITROGEN 27 MG/DL (9-23); CALCIUM LEVEL 8.8 MG/DL (8.3-10.6); CARBON DIOXIDE LEVEL 32 MMOL/L (20-31); CHLORIDE LEVEL 100 MMOL/L (98-107); CREATININE FOR GFR 0.86 MG/DL (0.70-1.30); GLOMERULAR FILTRATION RATE > 60.0 (>35); GLUCOSE, FASTING 137 MG/DL (74-106); POTASSIUM SERUM 4.1 MMOL/L (3.5-5.1); SODIUM LEVEL 136 MMOL/L (136-145)
[2023-06-21 15:18] LABS: APPEARANCE, URINE TURBID (CLEAR); BACTERIA, URINE AUTO 3+ (NEGATIVE); BILIRUBIN, URINE AUTO NEGATIVE (NEGATIVE); BLOOD, URINE BLOOD 3+ (NEGATIVE); COLOR, URINE AMBER (YELLOW); GLUCOSE, URINE (UA) AUTO NEGATIVE (NEGATIVE); KETONE, URINE AUTO NEGATIVE (NEGATIVE); LEUKOCYTE ESTERASE, URINE AUTO 3+ (NEGATIVE); MUCUS, URINE SMALL (NEGATIVE); NITRITE, URINE AUTO NEGATIVE (NEGATIVE); PROTEIN, URINE AUTO 2+ mg/dL (NEGATIVE); RBC, URINE AUTO 112 /HPF (0-3); SPECIFIC GRAVITY URINE AUTO 1.015 (1.002-1.035); SQUAMOUS EPITHELIAL CELL UR AU 0 /HPF (0-6); WBC, URINE AUTO TNTC /HPF (0-3)
[2023-06-21 15:27] LABS: PROCALCITONIN 0.18 ng/ml
[2023-06-21] MEDS ORDERED: cefTRIAXone SOD 2 GM in D5W MINI-BAG PLUS 50 ML IV ONE (15:55)
[2023-06-21] MEDS: IPRATROPIUM 0.5MG/ALBUTEROL 2.5MG INH SOL UD 3ML (DUONEB) NEB SCH ×3 (17:07→17:23)
[2023-06-21] MEDS ORDERED: NS 1,000 ML IV SCH ×2 (17:35→23:15)
[2023-06-21] MEDS ORDERED: ACETAMINOPHEN TAB 650MG DOSE (2X325MG) PO PRN (18:05)
[2023-06-21] MEDS ORDERED: MOM 30ML SUSPENSION UDC PO PRN (18:05)
[2023-06-21 19:12] LABS: INR 1.62; PROTHROMBIN TIME 18.7 SECONDS (12.5-14.5)
[2023-06-21] MEDS ORDERED: FURO40TA2 PO (19:58)
[2023-06-21] MEDS ORDERED: PROBCAP14 PO (20:03)
[2023-06-21] MEDS ORDERED: DESI13CR2 TOP (20:05)
[2023-06-21] MEDS ORDERED: ELIQ5TAB PO (20:07)
[2023-06-21] MEDS ORDERED: PANT40TA29 PO (20:08)
[2023-06-21] MEDS ORDERED: HOME MED LIST COMPLETE! XX SCH (20:15)
[2023-06-21] MEDS: METAMUCIL (PSYLLIUM) PACKET PO SCH (21:00)
[2023-06-21] MEDS: AZITHROMYCIN 250MG TABLET PO SCH (21:00)
[2023-06-21] MEDS: IPRATROPIUM 0.5MG/ALBUTEROL 2.5MG INH SOL UD 3ML (DUONEB) INH SCH (21:00)
[2023-06-21] MEDS: DOCUSATE SODIUM 100MG CAPSULE PO SCH (21:00)
[2023-06-21 22:19] VITALS: BP 136/78; TEMP 97.9; O2SAT 94
[2023-06-22] VITALS (8 sets, daily range): BP systolic 109–136; BP diastolic 65–76; TEMP 98.1–98.2; O2SAT 86–98
[2023-06-22] MEDS: IPRATROPIUM 0.5MG/ALBUTEROL 2.5MG INH SOL UD 3ML (DUONEB) INH SCH ×4 (01:27→20:47)
[2023-06-22 05:53] LABS: HEMATOCRIT 38.5 % (42.0-52.0); HEMOGLOBIN 12.3 g/dl (13.5-17.5); MEAN CORPUSCULAR HEMOGLOBIN 28.7 pg (27.0-33.0); MEAN CORPUSCULAR HGB CONC 31.9 g/dl (32.0-36.5); MEAN CORPUSCULAR VOLUME 89.7 fl (80.0-96.0); PLATELET COUNT, AUTOMATED 203 10^3/uL (150-450); RED BLOOD COUNT 4.29 10^6/uL (4.30-6.10); WHITE BLOOD COUNT 5.8 10^3/uL (4.0-10.0)
[2023-06-22 06:16] LABS: BLOOD UREA NITROGEN 29 MG/DL (9-23); CALCIUM LEVEL 8.7 MG/DL (8.3-10.6); CARBON DIOXIDE LEVEL 31 MMOL/L (20-31); CHLORIDE LEVEL 102 MMOL/L (98-107); CREATININE FOR GFR 0.71 MG/DL (0.70-1.30); GLOMERULAR FILTRATION RATE > 60.0 (>35); GLUCOSE, FASTING 157 MG/DL (74-106); POTASSIUM SERUM 4.4 MMOL/L (3.5-5.1); SODIUM LEVEL 137 MMOL/L (136-145)
[2023-06-22] MEDS: METAMUCIL (PSYLLIUM) PACKET PO SCH ×2 (09:40→20:25)
[2023-06-22] MEDS: DOCUSATE SODIUM 100MG CAPSULE PO SCH ×2 (09:40→21:00)
[2023-06-22] MEDS: MIRALAX *UNIT DOSE* 17GM PACKET PO SCH ×3 (09:40→20:25)
[2023-06-22] MEDS: SENNA 8.6 MG TAB (SENOKOT) PO SCH (13:11)
[2023-06-22] MEDS: MULTIVITAMINS/MINERALS THERAP 1 TAB PO SCH (15:49)
[2023-06-22] MEDS: POTASSIUM CHLORIDE 10MEQ SR TABLET PO SCH (15:50)
[2023-06-22] MEDS: allopurinoL 300 MG TAB PO SCH (15:50)
[2023-06-22] MEDS: FUROSEMIDE 40 MG TAB PO SCH (15:50)
[2023-06-22] MEDS ORDERED: cefTRIAXone SOD 1 GM in D5W MINI-BAG PLUS 50 ML IV SCH (16:00)
[2023-06-22] MEDS: LACTOBACILLUS ACIDOPHILUS CAP (BACID) PO SCH (18:10)
[2023-06-22] MEDS: AZITHROMYCIN 250MG TABLET PO SCH (20:59)
[2023-06-22] MEDS: TAMSULOSIN 0.4 MG CAP PO SCH (20:59)
[2023-06-22] MEDS: ASPIRIN 81MG ENTERIC TABLET PO SCH (20:59)
[2023-06-22] MEDS: DULoxetine 30MG CAPSULE (CYMBALTA) PO SCH (20:59)
[2023-06-22] MEDS: FINASTERIDE 5MG TAB PO SCH (21:00)
[2023-06-22] MEDS: PANTOPRAZOLE 40MG TAB (PROTONIX) PO SCH (21:00)
[2023-06-22] MEDS: ROSUVASTATIN 10 MG TAB (CRESTOR) PO SCH (21:00)
[2023-06-22] MEDS: bisoproloL fumarate 5 MG TAB PO SCH (21:02)
[2023-06-23] MEDS: IPRATROPIUM 0.5MG/ALBUTEROL 2.5MG INH SOL UD 3ML (DUONEB) INH SCH ×4 (01:16→20:26)
[2023-06-23 05:50] VITALS: BP 124/75; TEMP 98.7; O2SAT 94
[2023-06-23 06:15] LABS: HEMATOCRIT 37.9 % (42.0-52.0); HEMOGLOBIN 12.3 g/dl (13.5-17.5); MEAN CORPUSCULAR HEMOGLOBIN 28.7 pg (27.0-33.0); MEAN CORPUSCULAR HGB CONC 32.5 g/dl (32.0-36.5); MEAN CORPUSCULAR VOLUME 88.3 fl (80.0-96.0); PLATELET COUNT, AUTOMATED 223 10^3/uL (150-450); RED BLOOD COUNT 4.29 10^6/uL (4.30-6.10); WHITE BLOOD COUNT 11.9 10^3/uL (4.0-10.0)
[2023-06-23 06:37] LABS: BLOOD UREA NITROGEN 26 MG/DL (9-23); CALCIUM LEVEL 8.9 MG/DL (8.3-10.6); CARBON DIOXIDE LEVEL 28 MMOL/L (20-31); CHLORIDE LEVEL 101 MMOL/L (98-107); CREATININE FOR GFR 0.66 MG/DL (0.70-1.30); GLOMERULAR FILTRATION RATE > 60.0 (>35); GLUCOSE, FASTING 160 MG/DL (74-106); POTASSIUM SERUM 4.3 MMOL/L (3.5-5.1); SODIUM LEVEL 138 MMOL/L (136-145)
[2023-06-23] MEDS: LACTOBACILLUS ACIDOPHILUS CAP (BACID) PO SCH ×2 (08:08→17:49)
[2023-06-23] MEDS: DOCUSATE SODIUM 100MG CAPSULE PO SCH ×2 (08:08→21:00)
[2023-06-23] MEDS: FUROSEMIDE 40 MG TAB PO SCH (08:08)
[2023-06-23] MEDS: PANTOPRAZOLE 40MG TAB (PROTONIX) PO SCH ×2 (08:08→21:53)
[2023-06-23] MEDS: allopurinoL 300 MG TAB PO SCH (08:08)
[2023-06-23] MEDS: MULTIVITAMINS/MINERALS THERAP 1 TAB PO SCH (08:08)
[2023-06-23] MEDS: POTASSIUM CHLORIDE 10MEQ SR TABLET PO SCH (08:08)
[2023-06-23] MEDS: MIRALAX *UNIT DOSE* 17GM PACKET PO SCH ×3 (08:09→21:00)
[2023-06-23] MEDS: METAMUCIL (PSYLLIUM) PACKET PO SCH ×2 (08:09→21:00)
[2023-06-23] MEDS ORDERED: IPRATROPIUM 0.5MG/ALBUTEROL 2.5MG INH SOL UD 3ML (DUONEB) NEB PRN (11:55)
[2023-06-23] MEDS: SENNA 8.6 MG TAB (SENOKOT) PO SCH (12:39)
[2023-06-23 14:00] VITALS: BP 150/86; TEMP 97.5; O2SAT 95
[2023-06-23] MEDS: AUGMENTIN 875 MG TAB PO SCH ×2 (14:40→21:52)
[2023-06-23 19:45] VITALS: BP_SYST 127; BP_SYST 161; BP_DIAS 70; BP_DIAS 86; TEMP 97.7; O2SAT 92; O2SAT 99
[2023-06-23] MEDS: DULoxetine 30MG CAPSULE (CYMBALTA) PO SCH (21:51)
[2023-06-23] MEDS: APIXABAN 5 MG TAB (ELIQUIS) PO SCH (21:51)
[2023-06-23] MEDS: AZITHROMYCIN 250MG TABLET PO SCH (21:52)
[2023-06-23] MEDS: ROSUVASTATIN 10 MG TAB (CRESTOR) PO SCH (21:52)
[2023-06-23] MEDS: FINASTERIDE 5MG TAB PO SCH (21:52)
[2023-06-23] MEDS: ASPIRIN 81MG ENTERIC TABLET PO SCH (21:52)
[2023-06-23] MEDS: TAMSULOSIN 0.4 MG CAP PO SCH (21:52)
[2023-06-23] MEDS: bisoproloL fumarate 5 MG TAB PO SCH (21:55)
[2023-06-24] MEDS: IPRATROPIUM 0.5MG/ALBUTEROL 2.5MG INH SOL UD 3ML (DUONEB) INH SCH ×4 (01:23→20:10)
[2023-06-24 05:58] LABS: HEMATOCRIT 36.9 % (42.0-52.0); MEAN CORPUSCULAR HEMOGLOBIN 28.4 pg (27.0-33.0); MEAN CORPUSCULAR HGB CONC 32.5 g/dl (32.0-36.5); MEAN CORPUSCULAR VOLUME 87.4 fl (80.0-96.0); PLATELET COUNT, AUTOMATED 231 10^3/uL (150-450); RED BLOOD COUNT 4.22 10^6/uL (4.30-6.10); WHITE BLOOD COUNT 11.9 10^3/uL (4.0-10.0)
[2023-06-24 06:00] VITALS: BP 168/86; TEMP 98.1; O2SAT 95
[2023-06-24 06:20] LABS: BLOOD UREA NITROGEN 23 MG/DL (9-23); CALCIUM LEVEL 8.4 MG/DL (8.3-10.6); CARBON DIOXIDE LEVEL 29 MMOL/L (20-31); CHLORIDE LEVEL 104 MMOL/L (98-107); CREATININE FOR GFR 0.56 MG/DL (0.70-1.30); GLOMERULAR FILTRATION RATE > 60.0 (>35); GLUCOSE, FASTING 163 MG/DL (74-106); POTASSIUM SERUM 4.3 MMOL/L (3.5-5.1); SODIUM LEVEL 139 MMOL/L (136-145)
[2023-06-24] MEDS: AUGMENTIN 875 MG TAB PO SCH ×2 (07:19→21:17)
[2023-06-24] MEDS: LACTOBACILLUS ACIDOPHILUS CAP (BACID) PO SCH ×2 (07:19→16:59)
[2023-06-24] MEDS: MULTIVITAMINS/MINERALS THERAP 1 TAB PO SCH (07:19)
[2023-06-24] MEDS: allopurinoL 300 MG TAB PO SCH (07:19)
[2023-06-24] MEDS: POTASSIUM CHLORIDE 10MEQ SR TABLET PO SCH (07:19)
[2023-06-24] MEDS: PANTOPRAZOLE 40MG TAB (PROTONIX) PO SCH ×2 (07:20→21:17)
[2023-06-24] MEDS: DOCUSATE SODIUM 100MG CAPSULE PO SCH ×2 (07:20→21:00)
[2023-06-24] MEDS: FUROSEMIDE 40 MG TAB PO SCH (07:20)
[2023-06-24] MEDS: APIXABAN 5 MG TAB (ELIQUIS) PO SCH ×2 (07:20→21:17)
[2023-06-24] MEDS: MIRALAX *UNIT DOSE* 17GM PACKET PO SCH ×3 (07:21→21:00)
[2023-06-24] MEDS: METAMUCIL (PSYLLIUM) PACKET PO SCH ×2 (07:21→21:00)
[2023-06-24] MEDS: dexAMETHasone 2 MG TAB PO SCH (07:39)
[2023-06-24] MEDS: SENNA 8.6 MG TAB (SENOKOT) PO SCH (11:06)
[2023-06-24 14:00] VITALS: BP 150/89; TEMP 97.9; O2SAT 95
[2023-06-24 20:00] VITALS: BP 163/98; TEMP 98.1; O2SAT 96
[2023-06-24] MEDS: ONDANSETRON 4MG 2ML VIAL IV PRN (21:14)
[2023-06-24] MEDS: bisoproloL fumarate 5 MG TAB PO SCH (21:16)
[2023-06-24] MEDS: FINASTERIDE 5MG TAB PO SCH (21:16)
[2023-06-24] MEDS: DULoxetine 30MG CAPSULE (CYMBALTA) PO SCH (21:16)
[2023-06-24] MEDS: ASPIRIN 81MG ENTERIC TABLET PO SCH (21:17)
[2023-06-24] MEDS: TAMSULOSIN 0.4 MG CAP PO SCH (21:17)
[2023-06-24] MEDS: ROSUVASTATIN 10 MG TAB (CRESTOR) PO SCH (21:17)
[2023-06-25] MEDS: IPRATROPIUM 0.5MG/ALBUTEROL 2.5MG INH SOL UD 3ML (DUONEB) INH SCH ×4 (01:31→19:04)
[2023-06-25 05:58] LABS: HEMATOCRIT 38.2 % (42.0-52.0); HEMOGLOBIN 12.4 g/dl (13.5-17.5); MEAN CORPUSCULAR HEMOGLOBIN 28.3 pg (27.0-33.0); MEAN CORPUSCULAR HGB CONC 32.5 g/dl (32.0-36.5); MEAN CORPUSCULAR VOLUME 87.2 fl (80.0-96.0); PLATELET COUNT, AUTOMATED 244 10^3/uL (150-450); RED BLOOD COUNT 4.38 10^6/uL (4.30-6.10)
[2023-06-25 06:00] VITALS: BP 162/88; TEMP 98.1; O2SAT 92
[2023-06-25 06:22] LABS: BLOOD UREA NITROGEN 22 MG/DL (9-23); CALCIUM LEVEL 8.7 MG/DL (8.3-10.6); CARBON DIOXIDE LEVEL 29 MMOL/L (20-31); CHLORIDE LEVEL 101 MMOL/L (98-107); CREATININE FOR GFR 0.61 MG/DL (0.70-1.30); GLOMERULAR FILTRATION RATE > 60.0 (>35); GLUCOSE, FASTING 142 MG/DL (74-106); POTASSIUM SERUM 4.1 MMOL/L (3.5-5.1); SODIUM LEVEL 138 MMOL/L (136-145)
[2023-06-25] MEDS: APIXABAN 5 MG TAB (ELIQUIS) PO SCH ×2 (07:29→21:29)
[2023-06-25] MEDS: AUGMENTIN 875 MG TAB PO SCH ×2 (07:29→21:29)
[2023-06-25] MEDS: LACTOBACILLUS ACIDOPHILUS CAP (BACID) PO SCH ×2 (07:29→17:26)
[2023-06-25] MEDS: MIRALAX *UNIT DOSE* 17GM PACKET PO SCH ×3 (07:29→21:29)
[2023-06-25] MEDS: METAMUCIL (PSYLLIUM) PACKET PO SCH ×2 (07:29→21:29)
[2023-06-25] MEDS: DOCUSATE SODIUM 100MG CAPSULE PO SCH ×2 (07:30→21:31)
[2023-06-25] MEDS: allopurinoL 300 MG TAB PO SCH (07:30)
[2023-06-25] MEDS: PANTOPRAZOLE 40MG TAB (PROTONIX) PO SCH ×2 (07:30→21:31)
[2023-06-25] MEDS: FUROSEMIDE 40 MG TAB PO SCH (07:30)
[2023-06-25] MEDS: MULTIVITAMINS/MINERALS THERAP 1 TAB PO SCH (07:30)
[2023-06-25] MEDS: POTASSIUM CHLORIDE 10MEQ SR TABLET PO SCH (07:30)
[2023-06-25] MEDS: dexAMETHasone 2 MG TAB PO SCH (07:35)
[2023-06-25] MEDS: SENNA 8.6 MG TAB (SENOKOT) PO SCH (11:00)
[2023-06-25] MEDS: DULoxetine 30MG CAPSULE (CYMBALTA) PO SCH (21:29)
[2023-06-25] MEDS: ASPIRIN 81MG ENTERIC TABLET PO SCH (21:29)
[2023-06-25] MEDS: TAMSULOSIN 0.4 MG CAP PO SCH (21:30)
[2023-06-25 21:31] VITALS: BP 158/68
[2023-06-25] MEDS: FINASTERIDE 5MG TAB PO SCH (21:31)
[2023-06-25] MEDS: ROSUVASTATIN 10 MG TAB (CRESTOR) PO SCH (21:31)
[2023-06-25] MEDS: bisoproloL fumarate 5 MG TAB PO SCH (21:31)
[2023-06-26] MEDS: IPRATROPIUM 0.5MG/ALBUTEROL 2.5MG INH SOL UD 3ML (DUONEB) INH SCH ×2 (01:20→07:08)
[2023-06-26 05:59] LABS: HEMATOCRIT 37.2 % (42.0-52.0); HEMOGLOBIN 12.2 g/dl (13.5-17.5); MEAN CORPUSCULAR HEMOGLOBIN 28.3 pg (27.0-33.0); MEAN CORPUSCULAR HGB CONC 32.8 g/dl (32.0-36.5); MEAN CORPUSCULAR VOLUME 86.3 fl (80.0-96.0); PLATELET COUNT, AUTOMATED 248 10^3/uL (150-450); RED BLOOD COUNT 4.31 10^6/uL (4.30-6.10); WHITE BLOOD COUNT 8.2 10^3/uL (4.0-10.0)
[2023-06-26 06:14] VITALS: BP 154/77; TEMP 97.5; O2SAT 93
[2023-06-26 06:20] LABS: BLOOD UREA NITROGEN 24 MG/DL (9-23); CALCIUM LEVEL 8.6 MG/DL (8.3-10.6); CARBON DIOXIDE LEVEL 29 MMOL/L (20-31); CHLORIDE LEVEL 101 MMOL/L (98-107); CREATININE FOR GFR 0.67 MG/DL (0.70-1.30); GLOMERULAR FILTRATION RATE > 60.0 (>35); GLUCOSE, FASTING 155 MG/DL (74-106); SODIUM LEVEL 136 MMOL/L (136-145)
[2023-06-26] MEDS: AUGMENTIN 875 MG TAB PO SCH (08:44)
[2023-06-26] MEDS: dexAMETHasone 2 MG TAB PO SCH (08:44)
[2023-06-26] MEDS: DOCUSATE SODIUM 100MG CAPSULE PO SCH (08:44)
[2023-06-26] MEDS: LACTOBACILLUS ACIDOPHILUS CAP (BACID) PO SCH (08:44)
[2023-06-26] MEDS: PANTOPRAZOLE 40MG TAB (PROTONIX) PO SCH (08:45)
[2023-06-26] MEDS: APIXABAN 5 MG TAB (ELIQUIS) PO SCH (08:45)
[2023-06-26] MEDS: FUROSEMIDE 40 MG TAB PO SCH (08:45)
[2023-06-26] MEDS: POTASSIUM CHLORIDE 10MEQ SR TABLET PO SCH (08:45)
[2023-06-26] MEDS: MIRALAX *UNIT DOSE* 17GM PACKET PO SCH (08:45)
[2023-06-26] MEDS: METAMUCIL (PSYLLIUM) PACKET PO SCH (08:45)
[2023-06-26] MEDS: MULTIVITAMINS/MINERALS THERAP 1 TAB PO SCH (08:45)
[2023-06-26] MEDS: allopurinoL 300 MG TAB PO SCH (08:46)
[2023-06-26] MEDS: ONDANSETRON 4MG 2ML VIAL IV PRN (09:53)
[2023-06-26] MEDS: SENNA 8.6 MG TAB (SENOKOT) PO SCH (12:19)
[2023-06-26] MEDS ORDERED: AMOX875T2 PO (12:31)
== END 2023-06-26 13:06 | DRG 177 ==
LOC: EDBD 14:00 → M ED 14:00 → M ED INP 18:01 → M MSPAV 22:19
PROVIDERS: ADMIT Student in an Organized Health Care Education/Training Program; ATTEND Student in an Organized Health Care Education/Training Program
DX: U07.1 COVID-19 (principal); J12.82 Pneumonia due to coronavirus disease 2019; G93.41 Metabolic encephalopathy; N39.0 Urinary tract infection, site not specified; R33.9 Retention of urine, unspecified; I71.43 Infrarenal abdominal aortic aneurysm, without rupture; M48.061 Spinal stenosis, lumbar region without neurogenic claudication; M54.50 Low back pain, unspecified; G89.29 Other chronic pain; Z66 Do not resuscitate; I25.10 Atherosclerotic heart disease of native coronary artery without angina pectoris; I10 Essential (primary) hypertension; K59.00 Constipation, unspecified; B96.20 Unspecified Escherichia coli [E. coli] as the cause of diseases classified elsewhere; N20.0 Calculus of kidney; M10.9 Gout, unspecified; N40.1 Benign prostatic hyperplasia with lower urinary tract symptoms; E78.5 Hyperlipidemia, unspecified; Z96.651 Presence of right artificial knee joint; Z90.49 Acquired absence of other specified parts of digestive tract; Z95.0 Presence of cardiac pacemaker; Z95.5 Presence of coronary angioplasty implant and graft; Z79.01 Long term (current) use of anticoagulants; Z79.82 Long term (current) use of aspirin; Z79.899 Other long term (current) drug therapy; Z88.8 Allergy status to other drugs, medicaments and biological substances; Z86.718 Personal history of other venous thrombosis and embolism

== ENCOUNTER → 2023-06-21 | Outpatient (REF) ==
[2023-06-21 10:21] LABS: HEMATOCRIT 37.8 % (42.0-52.0); HEMOGLOBIN 12.2 g/dl (13.5-17.5); MEAN CORPUSCULAR HEMOGLOBIN 28.8 pg (27.0-33.0); MEAN CORPUSCULAR HGB CONC 32.3 g/dl (32.0-36.5); MEAN CORPUSCULAR VOLUME 89.4 fl (80.0-96.0); PLATELET COUNT, AUTOMATED 190 10^3/uL (150-450); RED BLOOD COUNT 4.23 10^6/uL (4.30-6.10); WHITE BLOOD COUNT 6.7 10^3/uL (4.0-10.0)
[2023-06-21 10:46] LABS: BLOOD UREA NITROGEN 24 MG/DL (9-23); CALCIUM LEVEL 8.6 MG/DL (8.3-10.6); CARBON DIOXIDE LEVEL 32 MMOL/L (20-31); CHLORIDE LEVEL 101 MMOL/L (98-107); CREATININE FOR GFR 0.79 MG/DL (0.70-1.30); GLOMERULAR FILTRATION RATE > 60.0 (>35); GLUCOSE, FASTING 132 MG/DL (74-106); POTASSIUM SERUM 3.8 MMOL/L (3.5-5.1); SODIUM LEVEL 138 MMOL/L (136-145)
== END ==
PROVIDERS: ATTEND Internal Medicine
DX: I10 Essential (primary) hypertension (principal)

== ENCOUNTER → 2023-06-23 | Outpatient (REF) ==
[~2023-06-23] MED LIST changes: +AMOX875T2 PO; +DESI13CR2 TOP; +ELIQ5TAB PO; +FURO40TA2 PO; +PANT40TA29 PO; +PROBCAP14 PO
== END ==
PROVIDERS: ATTEND Physician Assistant
DX: E87.5 Hyperkalemia (principal); Z53.8 Procedure and treatment not carried out for other reasons

== ENCOUNTER → 2023-06-26 | Outpatient (REF) ==
[2023-07-05 10:43] LABS: HEMATOCRIT 36.2 % (42.0-52.0); HEMOGLOBIN 11.7 g/dl (13.5-17.5); MEAN CORPUSCULAR HEMOGLOBIN 28.9 pg (27.0-33.0); MEAN CORPUSCULAR HGB CONC 32.3 g/dl (32.0-36.5); MEAN CORPUSCULAR VOLUME 89.4 fl (80.0-96.0); PLATELET COUNT, AUTOMATED 184 10^3/uL (150-450); RED BLOOD COUNT 4.05 10^6/uL (4.30-6.10); WHITE BLOOD COUNT 6.2 10^3/uL (4.0-10.0)
[2023-07-05 11:12] LABS: BLOOD UREA NITROGEN 11 MG/DL (9-23); CALCIUM LEVEL 8.6 MG/DL (8.3-10.6); CARBON DIOXIDE LEVEL 29 MMOL/L (20-31); CHLORIDE LEVEL 101 MMOL/L (98-107); CREATININE FOR GFR 0.68 MG/DL (0.70-1.30); GLOMERULAR FILTRATION RATE > 60.0 (>35); GLUCOSE, FASTING 140 MG/DL (74-106); POTASSIUM SERUM 3.8 MMOL/L (3.5-5.1); SODIUM LEVEL 136 MMOL/L (136-145)
== END ==
PROVIDERS: ATTEND Physician Assistant
DX: U07.1 COVID-19 (principal)

== ENCOUNTER → 2023-06-28 | Outpatient (REF) ==
[2023-06-28 11:23] LABS: HEMATOCRIT 45.6 % (42.0-52.0); HEMOGLOBIN 14.5 g/dl (13.5-17.5); MEAN CORPUSCULAR HEMOGLOBIN 28.7 pg (27.0-33.0); MEAN CORPUSCULAR HGB CONC 31.8 g/dl (32.0-36.5); MEAN CORPUSCULAR VOLUME 90.3 fl (80.0-96.0); PLATELET COUNT, AUTOMATED 309 10^3/uL (150-450); RED BLOOD COUNT 5.05 10^6/uL (4.30-6.10); WHITE BLOOD COUNT 12.5 10^3/uL (4.0-10.0)
[2023-06-28 12:09] LABS: BLOOD UREA NITROGEN 28 MG/DL (9-23); CALCIUM LEVEL 9.2 MG/DL (8.3-10.6); CARBON DIOXIDE LEVEL 28 MMOL/L (20-31); CHLORIDE LEVEL 97 MMOL/L (98-107); GLOMERULAR FILTRATION RATE > 60.0 (>35); GLUCOSE, FASTING 78 MG/DL (74-106); SODIUM LEVEL 134 MMOL/L (136-145)
== END ==
PROVIDERS: ATTEND Physician Assistant
DX: U07.1 COVID-19 (principal)

== ENCOUNTER → 2023-07-03 | Outpatient (REF) ==
[2023-07-03 12:25] LABS: BLOOD UREA NITROGEN 15 MG/DL (9-23); CALCIUM LEVEL 9.1 MG/DL (8.3-10.6); CARBON DIOXIDE LEVEL 32 MMOL/L (20-31); CHLORIDE LEVEL 101 MMOL/L (98-107); CREATININE FOR GFR 0.77 MG/DL (0.70-1.30); GLOMERULAR FILTRATION RATE > 60.0 (>35); GLUCOSE, FASTING 121 MG/DL (74-106); POTASSIUM SERUM 3.5 MMOL/L (3.5-5.1); SODIUM LEVEL 137 MMOL/L (136-145)
== END ==
PROVIDERS: ATTEND Physician Assistant
DX: E87.6 Hypokalemia (principal)

== ENCOUNTER 2023-07-08 18:44 | Emergency (ER) | payer MEDICARE, OTHER ==
[~2023-07-08] VITALS: Ht 180.3 cm; Wt 90.9 kg
[2023-07-08 20:54] LABS: BASO % 0.7 % (0.0-1.0); EOS # 0.4 10^3/uL (0.0-0.5); EOS % 6.5 % (0.0-3.0); HEMATOCRIT 33.9 % (42.0-52.0); LYMPH # 1.6 10^3/uL (1.5-5.0); LYMPH % 27.3 % (24.0-44.0); MEAN CORPUSCULAR HEMOGLOBIN 28.6 pg (27.0-33.0); MEAN CORPUSCULAR HGB CONC 32.4 g/dl (32.0-36.5); MEAN CORPUSCULAR VOLUME 88.1 fl (80.0-96.0); MONO # 0.4 10^3/uL (0.0-0.8); MONO % 6.8 % (2.0-8.0); NEUTROPHILS # 3.5 10^3/uL (1.5-8.5); NEUTROPHILS % 58.2 % (36.0-66.0); PLATELET COUNT, AUTOMATED 202 10^3/uL (150-450); RED BLOOD COUNT 3.85 10^6/uL (4.30-6.10)
[2023-07-08 21:00] LABS: ERYTHROCYTE SEDIMENTATION RATE 108 mm/hr (0-20)
[2023-07-08 21:22] LABS: ALBUMIN 1.9 G/DL (3.2-5.2); ALKALINE PHOSPHATASE 87 U/L (46-116); ALT/SGPT 15 U/L (7.0-40); AST/SGOT 33 U/L (<34); BILIRUBIN,DIRECT 0.1 MG/DL (<0.4); BILIRUBIN,TOTAL 0.3 MG/DL (0.3-1.2); BLOOD UREA NITROGEN 9 MG/DL (9-23); CALCIUM LEVEL 8.1 MG/DL (8.3-10.6); CARBON DIOXIDE LEVEL 30 MMOL/L (20-31); CHLORIDE LEVEL 102 MMOL/L (98-107); CREATININE FOR GFR 0.68 MG/DL (0.70-1.30); GLOMERULAR FILTRATION RATE > 60.0 (>35); GLUCOSE, FASTING 117 MG/DL (74-106); POTASSIUM SERUM 4.7 MMOL/L (3.5-5.1); SODIUM LEVEL 136 MMOL/L (136-145); TOTAL PROTEIN 5.3 G/DL (5.7-8.2)
[2023-07-08] MEDS ORDERED: ceFAZolin SOD 2 GM in IV 1 EA IV ONE (21:25)
[2023-07-08 21:46] VITALS: BP 174/78; TEMP 98.1; O2SAT 96
[2023-07-08] MEDS ORDERED: CEPH500C PO (23:00)
== END 2023-07-09 00:22 | disposition home or self-care (01) ==
LOC: M ED 18:44 → EDBD 18:44 → M ED 07-09 00:22
DX: S60.211A Contusion of right wrist, initial encounter (principal); L03.113 Cellulitis of right upper limb; I10 Essential (primary) hypertension; I25.2 Old myocardial infarction; M54.50 Low back pain, unspecified; K21.9 Gastro-esophageal reflux disease without esophagitis; H81.4 Vertigo of central origin; F41.9 Anxiety disorder, unspecified; F32.A Depression, unspecified; Z79.01 Long term (current) use of anticoagulants; Z79.82 Long term (current) use of aspirin; Z91.030 Bee allergy status; Z88.8 Allergy status to other drugs, medicaments and biological substances; Z79.2 Long term (current) use of antibiotics; Z79.891 Long term (current) use of opiate analgesic; Z79.899 Other long term (current) drug therapy
CPT/HCPCS: 73080; 73110; 80048; 80076; 83605; 85025; 85652; 86140; 87040; 96365; 99284; J0690

== ENCOUNTER → 2023-07-17 | Outpatient (REF) ==
[2023-07-17 11:14] LABS: HEMATOCRIT 38.1 % (42.0-52.0); HEMOGLOBIN 11.9 g/dl (13.5-17.5); MEAN CORPUSCULAR HEMOGLOBIN 28.4 pg (27.0-33.0); MEAN CORPUSCULAR HGB CONC 31.2 g/dl (32.0-36.5); MEAN CORPUSCULAR VOLUME 90.9 fl (80.0-96.0); PLATELET COUNT, AUTOMATED 270 10^3/uL (150-450); RED BLOOD COUNT 4.19 10^6/uL (4.30-6.10); WHITE BLOOD COUNT 7.1 10^3/uL (4.0-10.0)
[2023-07-17 11:38] LABS: BLOOD UREA NITROGEN 14 MG/DL (9-23); CALCIUM LEVEL 8.9 MG/DL (8.3-10.6); CARBON DIOXIDE LEVEL 30 MMOL/L (20-31); CHLORIDE LEVEL 103 MMOL/L (98-107); CREATININE FOR GFR 0.81 MG/DL (0.70-1.30); GLOMERULAR FILTRATION RATE > 60.0 (>35); GLUCOSE, FASTING 153 MG/DL (74-106); POTASSIUM SERUM 4.2 MMOL/L (3.5-5.1); SODIUM LEVEL 140 MMOL/L (136-145)
== END ==
PROVIDERS: ATTEND Physician Assistant
DX: I10 Essential (primary) hypertension (principal)

== ENCOUNTER → 2023-07-19 | Outpatient (REF) ==
[2023-07-19 12:05] LABS: HEMATOCRIT 38.5 % (42.0-52.0); HEMOGLOBIN 12.1 g/dl (13.5-17.5); MEAN CORPUSCULAR HEMOGLOBIN 28.7 pg (27.0-33.0); MEAN CORPUSCULAR HGB CONC 31.4 g/dl (32.0-36.5); MEAN CORPUSCULAR VOLUME 91.2 fl (80.0-96.0); PLATELET COUNT, AUTOMATED 254 10^3/uL (150-450); RED BLOOD COUNT 4.22 10^6/uL (4.30-6.10); WHITE BLOOD COUNT 7.4 10^3/uL (4.0-10.0)
[2023-07-19 12:30] LABS: ALBUMIN 2.6 G/DL (3.2-5.2); ALKALINE PHOSPHATASE 98 U/L (46-116); ALT/SGPT 11 U/L (7.0-40); AST/SGOT 17 U/L (<34); BILIRUBIN,DIRECT 0.3 MG/DL (<0.4); BILIRUBIN,TOTAL 0.6 MG/DL (0.3-1.2); BLOOD UREA NITROGEN 17 MG/DL (9-23); CARBON DIOXIDE LEVEL 30 MMOL/L (20-31); CHLORIDE LEVEL 104 MMOL/L (98-107); CREATININE FOR GFR 0.79 MG/DL (0.70-1.30); GLOMERULAR FILTRATION RATE > 60.0 (>35); GLUCOSE, FASTING 103 MG/DL (74-106); POTASSIUM SERUM 4.1 MMOL/L (3.5-5.1); SODIUM LEVEL 142 MMOL/L (136-145); TOTAL PROTEIN 6.3 G/DL (5.7-8.2)
[2023-07-19 12:32] LABS: THYROID STIMULATING HORMONE 2.215 uIU/ML (0.55-4.78)
== END ==
PROVIDERS: ATTEND Physician Assistant
DX: R05.9 Cough, unspecified (principal)

== ENCOUNTER → 2023-07-19 | Outpatient (REF) | payer MEDICARE, OTHER | PROVIDERS: ATTEND Internal Medicine | DX: R05.9 Cough, unspecified (principal); Z95.0 Presence of cardiac pacemaker ==

== ENCOUNTER → 2023-07-20 | Outpatient (REF) | payer MEDICARE, OTHER | PROVIDERS: ATTEND Internal Medicine | DX: I50.9 Heart failure, unspecified (principal); Z53.8 Procedure and treatment not carried out for other reasons ==

== ENCOUNTER → 2023-07-31 | Outpatient (REF) ==
[2023-07-31 10:55] LABS: HEMATOCRIT 36.5 % (42.0-52.0); HEMOGLOBIN 11.5 g/dl (13.5-17.5); MEAN CORPUSCULAR HGB CONC 31.5 g/dl (32.0-36.5); MEAN CORPUSCULAR VOLUME 88.8 fl (80.0-96.0); PLATELET COUNT, AUTOMATED 265 10^3/uL (150-450); RED BLOOD COUNT 4.11 10^6/uL (4.30-6.10); WHITE BLOOD COUNT 7.3 10^3/uL (4.0-10.0)
[2023-07-31 11:18] LABS: BLOOD UREA NITROGEN 15 MG/DL (9-23); CALCIUM LEVEL 8.4 MG/DL (8.3-10.6); CARBON DIOXIDE LEVEL 30 MMOL/L (20-31); CHLORIDE LEVEL 103 MMOL/L (98-107); CREATININE FOR GFR 0.59 MG/DL (0.70-1.30); GLOMERULAR FILTRATION RATE > 60.0 (>35); GLUCOSE, FASTING 93 MG/DL (74-106); MAGNESIUM LEVEL 1.8 MG/DL (1.8-2.4); POTASSIUM SERUM 4.2 MMOL/L (3.5-5.1); SODIUM LEVEL 138 MMOL/L (136-145); THYROID STIMULATING HORMONE 1.607 uIU/ML (0.55-4.78)
== END ==
PROVIDERS: ATTEND Physician Assistant
DX: I50.9 Heart failure, unspecified (principal)

== ENCOUNTER → 2023-08-01 | Outpatient (REF) | PROVIDERS: ATTEND Internal Medicine | DX: J98.11 Atelectasis (principal) ==

== ENCOUNTER → 2023-08-14 | Outpatient (REF) ==
[2023-08-14 10:46] LABS: HEMATOCRIT 35.6 % (42.0-52.0); HEMOGLOBIN 11.2 g/dl (13.5-17.5); MEAN CORPUSCULAR HGB CONC 31.5 g/dl (32.0-36.5); PLATELET COUNT, AUTOMATED 168 10^3/uL (150-450); WHITE BLOOD COUNT 6.5 10^3/uL (4.0-10.0)
[2023-08-14 11:11] LABS: BLOOD UREA NITROGEN 12 MG/DL (9-23); CALCIUM LEVEL 8.1 MG/DL (8.3-10.6); CARBON DIOXIDE LEVEL 30 MMOL/L (20-31); CHLORIDE LEVEL 105 MMOL/L (98-107); CREATININE FOR GFR 0.66 MG/DL (0.70-1.30); GLOMERULAR FILTRATION RATE > 60.0 (>35); GLUCOSE, FASTING 106 MG/DL (74-106); POTASSIUM SERUM 3.8 MMOL/L (3.5-5.1); SODIUM LEVEL 139 MMOL/L (136-145)
== END ==
PROVIDERS: ATTEND Internal Medicine
DX: I10 Essential (primary) hypertension (principal)

== ENCOUNTER → 2023-08-28 | Outpatient (REF) | PROVIDERS: ATTEND Physician Assistant | DX: R19.7 Diarrhea, unspecified (principal); Z53.8 Procedure and treatment not carried out for other reasons ==

== ENCOUNTER → 2023-10-03 | Outpatient (REF) | payer MEDICARE, OTHER ==
[~2023-10-03] MED LIST changes: -POTA10CA60 PO; +POTA10CA70 PO; -ROSU10TA6 PO; +ROSU10TA61 PO
[2023-10-03 18:00] LABS: AMORPHOUS SEDIMENT SMALL (NEGATIVE); APPEARANCE, URINE CLOUDY (CLEAR); BACTERIA, URINE AUTO NEGATIVE (NEGATIVE); BILIRUBIN, URINE AUTO NEGATIVE (NEGATIVE); BLOOD, URINE BLOOD 2+ (NEGATIVE); CALCIUM OXALATE CRYSTALS SMALL; COLOR, URINE YELLOW (YELLOW); GLUCOSE, URINE (UA) AUTO NEGATIVE (NEGATIVE); KETONE, URINE AUTO NEGATIVE (NEGATIVE); LEUKOCYTE ESTERASE, URINE AUTO NEGATIVE (NEGATIVE); MUCUS, URINE SMALL (NEGATIVE); NITRITE, URINE AUTO NEGATIVE (NEGATIVE); PROTEIN, URINE AUTO 2+ mg/dL (NEGATIVE); RBC, URINE AUTO TNTC /HPF (0-3); SPECIFIC GRAVITY URINE AUTO 1.015 (1.002-1.035); SQUAMOUS EPITHELIAL CELL UR AU 1 /HPF (0-6); UROBILINOGEN, URINE AUTO 0.2 mg/dL (0.0-2.0); WBC, URINE AUTO 10 /HPF (0-3)
== END ==
LOC: M SMT 17:17
PROVIDERS: ATTEND Nurse Practitioner Family
DX: R31.0 Gross hematuria (principal)

== ENCOUNTER → 2023-11-14 | Outpatient (REF) | payer MEDICARE, OTHER ==
[2023-11-14 15:26] LABS: HEMOGLOBIN 12.1 g/dl (13.5-17.5); MEAN CORPUSCULAR HEMOGLOBIN 27.6 pg (27.0-33.0); MEAN CORPUSCULAR HGB CONC 30.3 g/dl (32.0-36.5); MEAN CORPUSCULAR VOLUME 91.3 fl (80.0-96.0); PLATELET COUNT, AUTOMATED 157 10^3/uL (150-450); RED BLOOD COUNT 4.38 10^6/uL (4.30-6.10); WHITE BLOOD COUNT 6.6 10^3/uL (4.0-10.0)
[2023-11-14 15:57] LABS: BLOOD UREA NITROGEN 21 MG/DL (9-23); CALCIUM LEVEL 9.4 MG/DL (8.3-10.6); CARBON DIOXIDE LEVEL 31 MMOL/L (20-31); CHLORIDE LEVEL 105 MMOL/L (98-107); CREATININE FOR GFR 0.79 MG/DL (0.70-1.30); GLOMERULAR FILTRATION RATE > 60.0 (>35); GLUCOSE, FASTING 84 MG/DL (74-106); POTASSIUM SERUM 3.8 MMOL/L (3.5-5.1); SODIUM LEVEL 143 MMOL/L (136-145)
== END ==
LOC: M SHH 14:52
PROVIDERS: ATTEND Urology
DX: Z01.818 Encounter for other preprocedural examination (principal); R31.0 Gross hematuria; N20.0 Calculus of kidney

== ENCOUNTER → 2023-11-16 | Outpatient (CLI) | payer MEDICARE, OTHER ==
[~2023-11-16] MED LIST changes: +NEUR300C PO; +TRAM-533 PO
== END ==
LOC: M RAD 12:21
PROVIDERS: ATTEND Urology
DX: Z01.818 Encounter for other preprocedural examination (principal); R31.0 Gross hematuria; N20.0 Calculus of kidney; R91.8 Other nonspecific abnormal finding of lung field; I49.3 Ventricular premature depolarization; Z95.0 Presence of cardiac pacemaker

== ENCOUNTER 2023-11-24 07:50 | Day surgery (SDC) | payer MEDICARE, OTHER ==
[~2023-11-24] VITALS: Ht 180.3 cm; Wt 96.8 kg
[2023-11-24] MEDS ORDERED: fentaNYL 100 MCG/2 ML INJECTION As Ordered ONE (08:15)
[2023-11-24] MEDS ORDERED: propofoL 200 MG/20 ML VIAL As Ordered ONE (08:15)
[2023-11-24] MEDS ORDERED: MIDAZOLAM INJ 2MG/2ML VIAL As Ordered ONE (08:15)
[2023-11-24] MEDS ORDERED: LIDOCAINE 2% 100MG/5ML SDV (FOR ANES.) As Ordered ONE (08:15)
[2023-11-24] MEDS ORDERED: ONDANSETRON 4MG 2ML VIAL As Ordered ONE (08:15)
[2023-11-24] MEDS: LR 1,000 ML IV SCH (08:37)
[2023-11-24] MEDS: ceFAZolin SOD 2 GM in IV 1 EA IV ONE (09:45)
[2023-11-24] MEDS ORDERED: ePHEDrine SULFATE 25 MG/5 ML(5MG/ML) SYRINGE As Ordered ONE (10:08)
[2023-11-24] MEDS ORDERED: ETOMIDATE INJ 20MG/10ML VIAL As Ordered ONE (10:08)
[2023-11-24] MEDS ORDERED: ACETAMINOPHEN 1000MG 100ML IV BAG As Ordered ONE (10:08)
[2023-11-24] MEDS: ISOVUE-300 61% 100ML VIAL As Ordered ONE (10:24)
[2023-11-24] MEDS ORDERED: HYDROmorphone HCL 2MG/ML 1ML VIAL As Ordered ONE (11:38)
[2023-11-24] MEDS ORDERED: LR 1,000 ML IV SCH (11:55)
[2023-11-24] MEDS ORDERED: ONDANSETRON 4MG 2ML VIAL IV PRN (11:55)
[2023-11-24] MEDS ORDERED: fentaNYL 100 MCG/2 ML INJECTION IV PRN (11:55)
[2023-11-24] MEDS ORDERED: oxyCODONE 5MG TAB PO PRN (11:55)
[2023-11-24 13:26] VITALS: BP 163/74; TEMP 96.7; O2SAT 93
== END 2023-11-24 14:10 | disposition home or self-care (01) ==
LOC: M SDC 07:50
PROVIDERS: ATTEND Urology
DX: N13.2 Hydronephrosis with renal and ureteral calculous obstruction (principal); I10 Essential (primary) hypertension; N40.0 Benign prostatic hyperplasia without lower urinary tract symptoms; E78.00 Pure hypercholesterolemia, unspecified; I25.2 Old myocardial infarction; M10.9 Gout, unspecified; Z90.49 Acquired absence of other specified parts of digestive tract; Z79.899 Other long term (current) drug therapy; Z79.01 Long term (current) use of anticoagulants; Z79.82 Long term (current) use of aspirin; Z95.0 Presence of cardiac pacemaker; J45.909 Unspecified asthma, uncomplicated; Z88.8 Allergy status to other drugs, medicaments and biological substances
CPT/HCPCS: 52356; 74420; 82365; C1769; C2617; J0131; J0690; J1100; J1170; J2250; J2405; J3010; Q9967

== ENCOUNTER → 2023-12-07 | Outpatient (CLI) | payer MEDICARE, OTHER | LOC: M RAD 14:11 | PROVIDERS: ATTEND Urology | DX: N20.0 Calculus of kidney (principal); N28.89 Other specified disorders of kidney and ureter ==

== ENCOUNTER → 2023-12-18 | Outpatient (REF) | payer MEDICARE, OTHER ==
[2023-12-18 14:50] LABS: MEAN CORPUSCULAR HEMOGLOBIN 26.2 pg (27.0-33.0); MEAN CORPUSCULAR HGB CONC 29.4 g/dl (32.0-36.5); PLATELET COUNT, AUTOMATED 148 10^3/uL (150-450); RED BLOOD COUNT 3.82 10^6/uL (4.30-6.10); WHITE BLOOD COUNT 7.2 10^3/uL (4.0-10.0)
[2023-12-18 15:11] LABS: APPEARANCE, URINE CLOUDY (CLEAR); BACTERIA, URINE AUTO 1+ (NEGATIVE); BILIRUBIN, URINE AUTO NEGATIVE (NEGATIVE); BLOOD, URINE BLOOD 2+ (NEGATIVE); COLOR, URINE YELLOW (YELLOW); GLUCOSE, URINE (UA) AUTO NEGATIVE (NEGATIVE); KETONE, URINE AUTO NEGATIVE (NEGATIVE); LEUKOCYTE ESTERASE, URINE AUTO NEGATIVE (NEGATIVE); MUCUS, URINE SMALL (NEGATIVE); NITRITE, URINE AUTO NEGATIVE (NEGATIVE); PROTEIN, URINE AUTO 2+ mg/dL (NEGATIVE); RBC, URINE AUTO TNTC /HPF (0-3); SPECIFIC GRAVITY URINE AUTO 1.013 (1.002-1.035); SQUAMOUS EPITHELIAL CELL UR AU 0 /HPF (0-6); UROBILINOGEN, URINE AUTO 0.2 mg/dL (0.0-2.0); WBC, URINE AUTO 12 /HPF (0-3)
[2023-12-18 15:24] LABS: BLOOD UREA NITROGEN 17 MG/DL (9-23); CALCIUM LEVEL 7.9 MG/DL (8.3-10.6); CARBON DIOXIDE LEVEL 21 MMOL/L (20-31); CHLORIDE LEVEL 105 MMOL/L (98-107); CREATININE FOR GFR 0.73 MG/DL (0.70-1.30); GLOMERULAR FILTRATION RATE > 60.0 (>35); GLUCOSE, FASTING 64 MG/DL (74-106); SODIUM LEVEL 134 MMOL/L (136-145)
== END ==
LOC: M SHH 14:25
PROVIDERS: ATTEND Urology
DX: Z01.818 Encounter for other preprocedural examination (principal); N20.0 Calculus of kidney; N39.0 Urinary tract infection, site not specified

== ENCOUNTER 2023-12-25 10:51 | Day surgery (SDC) | payer MEDICARE, OTHER ==
[~2023-12-25] VITALS: Ht 177.8 cm; Wt 97.2 kg
[2023-12-25] MEDS ORDERED: LR 1,000 ML IV SCH ×2 (11:45→15:25)
[2023-12-25] MEDS ORDERED: propofoL 200 MG/20 ML VIAL As Ordered ONE (12:21)
[2023-12-25] MEDS ORDERED: fentaNYL 100 MCG/2 ML INJECTION As Ordered ONE (12:21)
[2023-12-25] MEDS ORDERED: LIDOCAINE 2% 100MG/5ML SDV (FOR ANES.) As Ordered ONE (12:22)
[2023-12-25] MEDS ORDERED: ACETAMINOPHEN 1000MG 100ML IV BAG As Ordered ONE (12:23)
[2023-12-25] MEDS: ceFAZolin SOD 2 GM in IV 1 EA IV ONE (14:00)
[2023-12-25] MEDS ORDERED: PHENYLephrine 500MCG 5ML (100MCG/ML) SYRINGE As Ordered ONE (14:10)
[2023-12-25] MEDS ORDERED: ONDANSETRON 4MG 2ML VIAL As Ordered ONE (14:10)
[2023-12-25] MEDS: ISOVUE-300 61% 100ML VIAL As Ordered ONE (14:58)
[2023-12-25] MEDS ORDERED: ONDANSETRON 4MG 2ML VIAL IV PRN (15:25)
[2023-12-25] MEDS ORDERED: fentaNYL 100 MCG/2 ML INJECTION IV PRN (15:25)
[2023-12-25 17:56] VITALS: BP 140/74; TEMP 98.1; O2SAT 95
== END 2023-12-25 18:18 | disposition home or self-care (01) ==
LOC: M SDC 10:51
PROVIDERS: ATTEND Urology
DX: N13.2 Hydronephrosis with renal and ureteral calculous obstruction (principal); I25.10 Atherosclerotic heart disease of native coronary artery without angina pectoris; I71.40 Abdominal aortic aneurysm, without rupture, unspecified; I11.9 Hypertensive heart disease without heart failure; I25.2 Old myocardial infarction; E78.00 Pure hypercholesterolemia, unspecified; J45.909 Unspecified asthma, uncomplicated; N40.0 Benign prostatic hyperplasia without lower urinary tract symptoms; Z79.01 Long term (current) use of anticoagulants; Z79.899 Other long term (current) drug therapy; Z95.0 Presence of cardiac pacemaker; M10.9 Gout, unspecified; Z88.8 Allergy status to other drugs, medicaments and biological substances; Z90.49 Acquired absence of other specified parts of digestive tract; Z91.030 Bee allergy status
CPT/HCPCS: 52356; 76000; 82365; C1769; C1894; C2617; J0131; J0690; J2371; J2405; J3010; Q9967

== ENCOUNTER → 2024-01-17 | Outpatient (REF) | payer MEDICARE, OTHER ==
[2024-01-17 14:53] LABS: BLOOD UREA NITROGEN 27 MG/DL (9-23); CALCIUM LEVEL 8.8 MG/DL (8.3-10.6); CARBON DIOXIDE LEVEL 32 MMOL/L (20-31); CHLORIDE LEVEL 104 MMOL/L (98-107); CREATININE FOR GFR 1.08 MG/DL (0.70-1.30); GLOMERULAR FILTRATION RATE > 60.0 (>35); GLUCOSE, FASTING 105 MG/DL (74-106); POTASSIUM SERUM 3.9 MMOL/L (3.5-5.1); SODIUM LEVEL 141 MMOL/L (136-145)
== END ==
LOC: M LAB REF 12:52 → M SHH 12:52
PROVIDERS: ATTEND Internal Medicine
DX: I10 Essential (primary) hypertension (principal)

== ENCOUNTER 2024-05-11 04:34 | Inpatient (IN) | payer MEDICARE, OTHER ==
[2024-05-11] VITALS (14 sets, daily range): BP systolic 139–178; BP diastolic 65–92; TEMP 98.2–98.7; O2SAT 93–98
[~2024-05-11] VITALS: Ht 180.3 cm; Wt 95.6 kg
[~2024-05-11 04:34] MED LIST changes: +GABA-1172 PO; +GABA-1490 PO; -GABA-282 PO; -GABA600T4 PO
[2024-05-11] MEDS: FUROSEMIDE 100MG/10ML VIAL IV ONE (05:05)
[2024-05-11 05:09] LABS: ABG BASE EXCESS 0.4 (-2.0-2.0); ABG HCO3 25.3 MMOL/L (22.0-26.0); ABG O2 SATURATION 94.5 % (95.0-99.0); ABG PARTIAL PRESSURE CO2 41.7 mmHg (35.0-45.0); ABG PARTIAL PRESSURE O2 76.9 mmHg (75.0-100.0); ABG STANDARD HCO3 24.8 MMOL/L. (22.0-26.0); ABG TOTAL CO2 26.6 MMOL/L (23.0-31.0); ABG pH (ARTERIAL) 7.401 UNITS (7.350-7.450)
[2024-05-11 05:16] LABS: BASO # 0.1 10^3/uL (0.0-0.2); BASO % 0.5 % (0.0-1.0); EOS # 0.6 10^3/uL (0.0-0.5); EOS % 5.8 % (0.0-3.0); HEMATOCRIT 36.2 % (42.0-52.0); HEMOGLOBIN 10.3 g/dl (13.5-17.5); LYMPH # 2.1 10^3/uL (1.5-5.0); LYMPH % 21.4 % (24.0-44.0); MEAN CORPUSCULAR HEMOGLOBIN 22.9 pg (27.0-33.0); MEAN CORPUSCULAR HGB CONC 28.5 g/dl (32.0-36.5); MEAN CORPUSCULAR VOLUME 80.4 fl (80.0-96.0); MONO # 0.8 10^3/uL (0.0-0.8); MONO % 8.3 % (2.0-8.0); NEUTROPHILS # 6.4 10^3/uL (1.5-8.5); NEUTROPHILS % 63.6 % (36.0-66.0); PLATELET COUNT, AUTOMATED 178 10^3/uL (150-450)
[2024-05-11 05:40] LABS: ALBUMIN 3.3 G/DL (3.2-5.2); ALKALINE PHOSPHATASE 111 U/L (40-129); ALT/SGPT 17 U/L (7.0-40); AST/SGOT 25 U/L (<34); BILIRUBIN,DIRECT 0.3 MG/DL (<0.4); BILIRUBIN,TOTAL 0.7 MG/DL (0.3-1.2); BLOOD UREA NITROGEN 20 MG/DL (9-23); CALCIUM LEVEL 9.3 MG/DL (8.3-10.6); CARBON DIOXIDE LEVEL 31 MMOL/L (20-31); CHLORIDE LEVEL 106 MMOL/L (98-107); CREATININE FOR GFR 0.98 MG/DL (0.70-1.30); GLOMERULAR FILTRATION RATE > 60.0 (>35); GLUCOSE, FASTING 148 MG/DL (74-106); POTASSIUM SERUM 4.5 MMOL/L (3.5-5.1); SODIUM LEVEL 141 MMOL/L (136-145); TOTAL PROTEIN 6.8 G/DL (5.7-8.2)
[2024-05-11 05:42] LABS: THYROXINE (T4) 4.4 UG/DL (4.5-10.9)
[2024-05-11 05:46] LABS: PROCALCITONIN 0.05 ng/ml
[2024-05-11 08:07] LABS: CK-MB VALUE MASS 3.1 NG/ML (<3.6)
[2024-05-11 08:13] LABS: MB/CK RELATIVE INDEX 3.97 (< OR =4)
[2024-05-11] MEDS ORDERED: MOM 30ML SUSPENSION UDC PO PRN (09:05)
[2024-05-11] MEDS ORDERED: ALBUTEROL SULFATE 2.5MG/0.5ML INH NEB SOLN INH PRN (09:05)
[2024-05-11] MEDS ORDERED: MAALOX 30 ML SUSP *UDC PO PRN (09:05)
[2024-05-11] MEDS ORDERED: HOME MED LIST COMPLETE! XX SCH (09:20)
[2024-05-11] MEDS ORDERED: POTA-151 PO (09:20)
[2024-05-11] MEDS: guaiFENesin ER TABLET 600 MG TAB PO SCH (10:06)
[2024-05-11 10:17] LABS: PROCALCITONIN 0.07 ng/ml
[2024-05-11] MEDS ORDERED: traMADol 50 MG TAB PO PRN (10:20)
[2024-05-11] MEDS ORDERED: PILL CUTTER 1 EACH XX PRN (10:55)
[2024-05-11] MEDS: APIXABAN 5 MG TAB (ELIQUIS) PO SCH (11:22)
[2024-05-11] MEDS: POTASSIUM CHLORIDE 10MEQ SR TABLET PO SCH (11:23)
[2024-05-11] MEDS: allopurinoL 300 MG TAB PO SCH (11:23)
[2024-05-11] MEDS: ALBUTEROL SULFATE 2.5MG/0.5ML INH NEB SOLN INH SCH (11:56)
[2024-05-11] MEDS: GABAPENTIN 100 MG CAP PO SCH (15:21)
[2024-05-11] MEDS: FUROSEMIDE 40MG/4ML VIAL IV SCH (15:22)
[2024-05-11] MEDS: ASPIRIN 81MG ENTERIC TABLET PO SCH (20:50)
[2024-05-11] MEDS: ROSUVASTATIN 10 MG TAB (CRESTOR) PO SCH (20:50)
[2024-05-11] MEDS: PANTOPRAZOLE 40MG TAB (PROTONIX) PO SCH (20:50)
[2024-05-11] MEDS: DULoxetine 30MG CAPSULE (CYMBALTA) PO SCH (20:50)
[2024-05-11] MEDS: DOCUSATE SODIUM 100MG CAPSULE PO SCH (20:50)
[2024-05-11] MEDS: FINASTERIDE 5MG TAB PO SCH (20:51)
[2024-05-11] MEDS: TAMSULOSIN 0.4 MG CAP PO SCH (20:51)
[2024-05-11] MEDS: bisoproloL fumarate 5 MG TAB PO SCH (20:51)
[2024-05-11] MEDS: BALMEX CREAM 60GM TOP SCH (20:52)
[2024-05-12] VITALS (30 sets, daily range): BP systolic 101–157; BP diastolic 50–67; TEMP 97.3–99.4; O2SAT 83–100
[2024-05-12 06:35] LABS: BASO % 0.6 % (0.0-1.0); EOS # 0.5 10^3/uL (0.0-0.5); EOS % 7.3 % (0.0-3.0); HEMATOCRIT 33.5 % (42.0-52.0); HEMOGLOBIN 9.9 g/dl (13.5-17.5); LYMPH # 1.2 10^3/uL (1.5-5.0); LYMPH % 19.7 % (24.0-44.0); MEAN CORPUSCULAR HEMOGLOBIN 22.8 pg (27.0-33.0); MEAN CORPUSCULAR HGB CONC 29.6 g/dl (32.0-36.5); MEAN CORPUSCULAR VOLUME 77.2 fl (80.0-96.0); MONO # 1.1 10^3/uL (0.0-0.8); NEUTROPHILS # 3.4 10^3/uL (1.5-8.5); NEUTROPHILS % 55.1 % (36.0-66.0); PLATELET COUNT, AUTOMATED 160 10^3/uL (150-450); RED BLOOD COUNT 4.34 10^6/uL (4.30-6.10); WHITE BLOOD COUNT 6.2 10^3/uL (4.0-10.0)
[2024-05-12 07:05] LABS: BLOOD UREA NITROGEN 17 MG/DL (9-23); CALCIUM LEVEL 9.4 MG/DL (8.3-10.6); CARBON DIOXIDE LEVEL 32 MMOL/L (20-31); CHLORIDE LEVEL 100 MMOL/L (98-107); CREATININE FOR GFR 1.06 MG/DL (0.70-1.30); GLOMERULAR FILTRATION RATE > 60.0 (>35); GLUCOSE, FASTING 113 MG/DL (74-106); MAGNESIUM LEVEL 1.9 MG/DL (1.8-2.4); POTASSIUM SERUM 4.2 MMOL/L (3.5-5.1); SODIUM LEVEL 140 MMOL/L (136-145)
[2024-05-12] MEDS: ACETAMINOPHEN 325 MG TAB PO PRN (08:48)
[2024-05-13] VITALS (29 sets, daily range): BP systolic 119–148; BP diastolic 57–65; TEMP 97.6–98.6; O2SAT 88–95
[2024-05-13 05:50] LABS: BASO # 0.1 10^3/uL (0.0-0.2); BASO % 0.7 % (0.0-1.0); EOS # 0.5 10^3/uL (0.0-0.5); EOS % 6.5 % (0.0-3.0); HEMATOCRIT 33.9 % (42.0-52.0); HEMOGLOBIN 10.2 g/dl (13.5-17.5); LYMPH # 1.4 10^3/uL (1.5-5.0); LYMPH % 18.9 % (24.0-44.0); MEAN CORPUSCULAR HEMOGLOBIN 23.3 pg (27.0-33.0); MEAN CORPUSCULAR HGB CONC 30.1 g/dl (32.0-36.5); MEAN CORPUSCULAR VOLUME 77.4 fl (80.0-96.0); MONO # 1.1 10^3/uL (0.0-0.8); NEUTROPHILS # 4.4 10^3/uL (1.5-8.5); NEUTROPHILS % 58.8 % (36.0-66.0); PLATELET COUNT, AUTOMATED 177 10^3/uL (150-450); RED BLOOD COUNT 4.38 10^6/uL (4.30-6.10); WHITE BLOOD COUNT 7.4 10^3/uL (4.0-10.0)
[2024-05-13 06:11] LABS: BLOOD UREA NITROGEN 22 MG/DL (9-23); CARBON DIOXIDE LEVEL 32 MMOL/L (20-31); CHLORIDE LEVEL 102 MMOL/L (98-107); CREATININE FOR GFR 1.14 MG/DL (0.70-1.30); GLOMERULAR FILTRATION RATE > 60.0 (>35); GLUCOSE, FASTING 123 MG/DL (74-106); POTASSIUM SERUM 4.1 MMOL/L (3.5-5.1); SODIUM LEVEL 140 MMOL/L (136-145)
[2024-05-13] MEDS ORDERED: ISOVUE-370 76% 100ML VIAL As Ordered ONE (09:28)
[2024-05-14] VITALS (26 sets, daily range): BP systolic 122–143; BP diastolic 60–72; TEMP 97.4–98.1; O2SAT 88–94
[2024-05-14 06:21] LABS: BASO % 0.5 % (0.0-1.0); EOS # 0.5 10^3/uL (0.0-0.5); EOS % 6.1 % (0.0-3.0); HEMATOCRIT 33.8 % (42.0-52.0); HEMOGLOBIN 10.1 g/dl (13.5-17.5); LYMPH # 1.5 10^3/uL (1.5-5.0); LYMPH % 20.3 % (24.0-44.0); MEAN CORPUSCULAR HEMOGLOBIN 23.2 pg (27.0-33.0); MEAN CORPUSCULAR HGB CONC 29.9 g/dl (32.0-36.5); MEAN CORPUSCULAR VOLUME 77.7 fl (80.0-96.0); NEUTROPHILS # 4.4 10^3/uL (1.5-8.5); NEUTROPHILS % 59.8 % (36.0-66.0); PLATELET COUNT, AUTOMATED 194 10^3/uL (150-450); RED BLOOD COUNT 4.35 10^6/uL (4.30-6.10); WHITE BLOOD COUNT 7.4 10^3/uL (4.0-10.0)
[2024-05-14 06:52] LABS: BLOOD UREA NITROGEN 26 MG/DL (9-23); CALCIUM LEVEL 9.3 MG/DL (8.3-10.6); CARBON DIOXIDE LEVEL 32 MMOL/L (20-31); CHLORIDE LEVEL 103 MMOL/L (98-107); CREATININE FOR GFR 1.03 MG/DL (0.70-1.30); GLOMERULAR FILTRATION RATE > 60.0 (>35); GLUCOSE, FASTING 124 MG/DL (74-106); POTASSIUM SERUM 4.2 MMOL/L (3.5-5.1); SODIUM LEVEL 140 MMOL/L (136-145)
[2024-05-14] MEDS: FUROSEMIDE 40 MG TAB PO SCH (10:14)
[2024-05-15] VITALS (12 sets, daily range): BP systolic 117–135; BP diastolic 58–62; TEMP 98.3–98.4; O2SAT 86–94
== END 2024-05-15 15:15 | disposition home health service (06) | DRG 291 ==
LOC: M ED 04:34 → EDBD 04:34 → M ED INP 09:03 → M PCU 14:22
PROVIDERS: ADMIT Internal Medicine; ATTEND Internal Medicine
PROC: B246ZZZ Ultrasonography of Right and Left Heart (ICD-10-PCS; principal; 2024-05-11)
DX: I11.0 Hypertensive heart disease with heart failure (principal); I50.23 Acute on chronic systolic (congestive) heart failure; J96.01 Acute respiratory failure with hypoxia; Z66 Do not resuscitate; I48.91 Unspecified atrial fibrillation; I25.10 Atherosclerotic heart disease of native coronary artery without angina pectoris; I25.2 Old myocardial infarction; G62.9 Polyneuropathy, unspecified; M10.9 Gout, unspecified; N40.0 Benign prostatic hyperplasia without lower urinary tract symptoms; G25.81 Restless legs syndrome; F39 Unspecified mood [affective] disorder; I49.5 Sick sinus syndrome; M19.90 Unspecified osteoarthritis, unspecified site; M54.9 Dorsalgia, unspecified; G89.29 Other chronic pain; K21.9 Gastro-esophageal reflux disease without esophagitis; Z96.651 Presence of right artificial knee joint; Z95.0 Presence of cardiac pacemaker; Z95.5 Presence of coronary angioplasty implant and graft; B34.8 Other viral infections of unspecified site; Z79.01 Long term (current) use of anticoagulants; Z79.82 Long term (current) use of aspirin; Z79.899 Other long term (current) drug therapy; Z91.030 Bee allergy status; Z88.8 Allergy status to other drugs, medicaments and biological substances; J45.909 Unspecified asthma, uncomplicated

== ENCOUNTER → 2024-07-26 | Outpatient (CLI) | payer MEDICARE, OTHER ==
[~2024-07-26] MED LIST changes: +POTA-151 PO
== END ==
LOC: M ADAMS 10:00
PROVIDERS: ATTEND Urology
DX: N20.0 Calculus of kidney (principal)

== ENCOUNTER → 2024-09-18 | Outpatient (CLI) | payer MEDICARE, OTHER ==
[2024-09-18 15:38] LABS: MEAN CORPUSCULAR HEMOGLOBIN 25.5 pg (27.0-33.0); MEAN CORPUSCULAR HGB CONC 29.7 g/dl (32.0-36.5); MEAN CORPUSCULAR VOLUME 85.8 fl (80.0-96.0); PLATELET COUNT, AUTOMATED 181 10^3/uL (150-450); RED BLOOD COUNT 4.31 10^6/uL (4.30-6.10)
[2024-09-18 15:44] LABS: ALBUMIN 3.2 G/DL (3.2-5.2); BILIRUBIN,TOTAL 0.5 MG/DL (0.3-1.2); CREATININE FOR GFR 1.14 MG/DL (0.70-1.30); GLOMERULAR FILTRATION RATE 62.6 (>35); POTASSIUM SERUM 4.2 MMOL/L (3.5-5.1); TOTAL PROTEIN 6.7 G/DL (5.7-8.2)
== END ==
LOC: M PLALAB 12:43
PROVIDERS: ATTEND Internal Medicine Cardiovascular Disease
DX: I10 Essential (primary) hypertension (principal); I48.0 Paroxysmal atrial fibrillation

== ENCOUNTER → 2025-03-17 | Outpatient (CLI) | payer MEDICARE, OTHER ==
[~2025-03-17] MED LIST changes: -FLOM0.4C39 PO; -IBUP-1022 PO; -IBUP1TAB6 PO; +IBUP600T42 PO; +PRAV10TA PO; -PRAV10TA4 PO; +SFHIBU600 PO; +TAMS-18 PO
[2025-03-17 14:23] LABS: PLATELET COUNT, AUTOMATED 184 10^3/uL (150-450)
[2025-03-17 14:46] LABS: ALT/SGPT 18.0 U/L (7.0-40); AST/SGOT 31.0 U/L (<34); CALCIUM LEVEL 9.2 MG/DL (8.3-10.6); CARBON DIOXIDE LEVEL 32.0 MMOL/L (20-31); CHLORIDE LEVEL 99.0 MMOL/L (98-107); CHOLESTEROL LEVEL 88.0 MG/DL (<200); CHOLESTEROL RISK RATIO 3.54 (<5); CREATININE FOR GFR 1.13 MG/DL (0.70-1.30); GLOMERULAR FILTRATION RATE 63.3 (>35); LDL CHOLESTEROL 40.4 MG/DL (<100); NON-HDL-C 63.2 MG/DL; POTASSIUM SERUM 5.0 MMOL/L (3.5-5.1); SODIUM LEVEL 140.0 MMOL/L (136-145); TRIGLYCERIDES LEVEL 114.0 MG/DL (<150)
== END ==
LOC: M LABDRWAD 11:11
PROVIDERS: ATTEND Internal Medicine Cardiovascular Disease
DX: I25.10 Atherosclerotic heart disease of native coronary artery without angina pectoris (principal); I34.0 Nonrheumatic mitral (valve) insufficiency; E78.2 Mixed hyperlipidemia